=== PATIENT | male | born 1965 | race Caucasian/White ===

== ENCOUNTER 2023-11-17 09:40 | Day surgery (SDC) | payer OTHER, SELFPAY ==
--- NOTE | 2023-11-17 13:57 | ITS.CL.IMPLP ---
[employer] - Implant Loop
Implant Loop
Procedure Report:
Date of Procedure: November 15, 2023.
Procedure: Insertable Loop Recorder Implant.
Indication: Embolic stroke of unknown source.
Performing physician: Marquis Palumbo MD, [facility].
Implant: [employer]tronic; Reveal LINQII; Model# [id number]; Serial# [id number].
Technique: The patient was prepped and draped in the usual fashion. A time-out was performed. No intravenous sedation was administered. Local anesthetic was applied to the left pre-pectoral subcutaneous tissue. Using the insertion kit an incision
was made left of the midline in the fourth intercostal space and the device was implanted subcutaneously and directed towards the nipple. Hemostasis was excellent. The skin was closed with steri-strips. The estimated blood loss was less than 1 ml.
There were no complications. No fluoroscopy. R waves measured 0.22 mV and P waves were visible.
Final Programming: Detections: Afib, tachy at 160 bpm, james at 30 bpm, pause at 3 sec.
Conclusion: Uncomplicated insertable loop implant.
Recommendation: Routine post-insertable loop care. The device is MRI conditional without a waiting period and up to 3 Maci.
cc: Leonides Luna MD and Toan Mayer MD.
== END 2023-11-17 12:10 | disposition home or self-care (01) ==
LOC: CATH 09:40
PROVIDERS: ATTENDING PHYSICIAN Internal Medicine Cardiovascular Disease; FAMILY PHYSICIAN Family Medicine; OTHER PHYSICIAN Internal Medicine Cardiovascular Disease
DX: Z09 Encounter for follow-up examination after completed treatment for conditions other than malignant neoplasm (principal); Z86.73 Personal history of transient ischemic attack (TIA), and cerebral infarction without residual deficits; E11.9 Type 2 diabetes mellitus without complications; E78.5 Hyperlipidemia, unspecified; Z79.4 Long term (current) use of insulin; Z79.84 Long term (current) use of oral hypoglycemic drugs; Z79.82 Long term (current) use of aspirin; Z79.02 Long term (current) use of antithrombotics/antiplatelets
CPT/HCPCS: 33285; C1764

== ENCOUNTER → 2024-01-16 11:24 | Outpatient (REF) | payer OTHER, SELFPAY | LOC: DHCBC HW 11:24 | PROVIDERS: ATTENDING PHYSICIAN Internal Medicine Cardiovascular Disease; FAMILY PHYSICIAN Family Medicine | DX: Z86.73 Personal history of transient ischemic attack (TIA), and cerebral infarction without residual deficits (principal); I25.10 Atherosclerotic heart disease of native coronary artery without angina pectoris; I25.5 Ischemic cardiomyopathy | CPT/HCPCS: 93306 ==

== ENCOUNTER → 2024-02-15 10:43 | Outpatient (REF) | payer OTHER, SELFPAY | LOC: RAD 10:43 | PROVIDERS: ATTENDING PHYSICIAN Nurse Practitioner Family | DX: R05.9 Cough, unspecified (principal) | CPT/HCPCS: 71046 ==

== ENCOUNTER 2025-09-19 08:49 | Inpatient (IN) | payer BC, SELFPAY ==
[2025-09-19] VITALS (14 sets, daily range): BP systolic 90–154; BP diastolic 66–137; BMI 28.5
[2025-09-19 04:27] LABS: Hematocrit 40.8 % (39.0-52.0); Hemoglobin 14.0 g/dL (13.0-18.0); Mean Corp Hgb Conc. 34.3 g/dL (33.0-37.0); Mean Corpuscular Volume 89.9 fL (80.0-94.0); Nucleated Red Blood Cells % 0 % (-); Platelet Count 310 10^3/uL (130-400); Red Cell Dist. Width 13.3 % (11.5-14.5)
--- NOTE | 2025-09-19 05:04 | ED.GENMED ---
History of Present Illness
General
Chief Complaint: Breathing Problem
Source: patient and spouse
Exam Limitations: none
Time Seen by Provider: 09/19/25 04:02
Nursing documentation reviewed up to this point in time: agreed with
History of Present Illness
History of Present Illness:
Patient with history of OR with subsequent reduced ejection fraction, presents to ED secondary to coughing with shortness of breath when he lay down to this evening. Patient reports having had Thanksgiving dinner for dinner, but reports having
uncomfortable feeling in his stomach afterwards. Denies chest pain. Denies fever or chills. Denies recent sick contact. However, patient does report having travel overseas, requiring 15 hours of flight. Patient has intermittent leg swelling
since then. Denies weight gain. Denies back pain. Denies recent change in medications or diet. Denies previous history of similar symptoms. Patient feels as though he has fluid in his lungs.
Past History
Past History
ED Past Medical History: NIDDM
ED Past Surgical History: Negative Cardiac
Social History
Tobacco: Non-smoker
Alcohol: None
Drug: None
Personal:
Living: with family
Employment: Employed
Family History
Family History: Hypertension and CAD
Review of Systems
Review of Systems
Allergies reviewed?: Yes
All Other Systems: ROS reviewed and negative except as documented in HPI and ROS
Constitutional: Reports no symptoms; Denies fever
Respiratory: Reports cough and trouble breathing
Cardiac: Reports no symptoms
ABD/GI: Reports no symptoms
Musculoskeletal: Reports no symptoms
Skin: Reports no symptoms
Neurological: Reports no symptoms
Phy Exam
Physical Exam
Physical Exam:
Physical Exam
General: mild distress, not acutely ill. afebrile. hypoxic
Head: nc/at. eomi
Neck: supple. no jvd
Heart: s1/s2 regular rate and rhythm
Lungs: mild respiratory distress. crackles noted over right lower base
Abdomen: normal bowel sounds. not tender.
Neuro: alert and oriented x 3. no focal neurological deficits
Skin: no rash
Psychiatric: well kept. interactive and cooperative
Extremities: no edema. no calf tenderness.
Scores
Heart Failure Risk
Heart Failure Risk Score: Yes
History of Stroke or TIA: No
History of intubation for respiratory distress: No
Heart rate on ED arrival >/= 110: No
SaO2 <90% on arrival on room air: Yes
HR >/=110 during 3min walk test (or too ill to perform test): No
ECG has acute ischemic changes: No
Urea >/=12mmol/L (BUN 33.6mg/dL): No
Serum CO2>/=35mmol/L: No
Troponin I or T elevated to OR Level (0.4mg/dL): No
NT-proBNP >/=5,000ng/L (5,000pg/ml): Yes
HF Risk Score: 2
Admission Status: MEDIUM RISK 9.2% Consider observation or discharge to home with homecare & f/u visit to PCP/Double Surface Operator, or SNF for treatment
Course
Orders/Labs/Results
Orders:
Orders
09/19/25 04:03
CR Chest - 2 Views Urgent
Comment:
Reason For Exam: cough/sob
09/19/25 04:08
Cardiovascular Evaluation Urgent
Comment: ADD ON
Complete Blood Count/With Diff Urgent
Comprehensive Metabolic Panel Urgent
Glycohemoglobin (HgbA1c) Urgent
Magnesium Urgent
NT-proBNP Urgent
TSH Reflex To Free T4 Urgent
Comment: ADD ON
09/19/25 04:34
Electrocardiogram (*1) Urgent
Reason for Study: Shortness of Breath
EKG- Treatment ONCE
09/19/25 04:38
D-Dimer Urgent
Troponin I Urgent
09/19/25 05:43
CT Chest PE Study Urgent
Comment:
Reason For Exam: sob with elevated d-dimer
09/19/25 06:26
COVID-19 Antigen Urgent
Source: Nasal Swab
09/19/25 06:35
Guaifenesin/Codeine Solution [Robitussin AC] 10 ml PO NOW STA
09/19/25 06:36
Albuterol Nebs [Ventolin Nebules] 2.5 mg INH R NOW STA
09/19/25 07:02
Electrocardiogram (*1) Urgent
Reason for Study: Shortness of Breath
EKG- Treatment ONCE
09/19/25 07:07
Azithromycin 500 mg/250 ml [Zithromax Infusion] 500 mg in 250 ml IV NOW
CefTRIAXone [Rocephin] 1,000 mg IV NOW STA
09/19/25 07:26
Heparin Protocol- PTT Orders As Directed
PTT per Heparin protocol: -Obtain CBC and baseline PTT - if not already collected.
-Obtain PTT 6 hours from start of infusion. Then, every 6 hours until 2 consecutive
PTT's are therapeutic. Then, PTT Daily.
-With each rate change, obtain PTT every 6 hours until 2 consecutive PTT's are
therapeutic. Then, PTT Daily.
Notify MD As Directed
Notify physician if: PTT is greater than or equal to 200.
US Legs, Bilateral [US Periph Venous LOWER Ext Sukhi] Urgent
Comment:
Reason For Exam: LE swelling, elevated ddimer
09/19/25 07:29
Respiratory Culture/Gram Stain Urgent
LUISA Source: Sputum
Specimen Description:
09/19/25 07:30
Heparin 05992 Units/250 ml 25,000 units in 250 ml IV PER PROTOCOL
Weight to be used for heparin protocol in kilograms (kg):: 85.1
Protocol:: Cardiac Tx/Acute Coronary
PTT Goal Range to be used:: PTT 73 to 111 seconds
Order type:: Initial
INITIAL Infusion Dose (UNITS/KG/hr) & then follow protocol:: 15 units/kg/hr
Infusion Dose in UNITS/hr & then follow protocol (UNITS/hr):: 1,300
INFUSION RATE in mL/hr & then follow protocol (mL/hr):: 13
PTT less than or equal to 64 seconds:: Increase rate by 200 units/hr (+ 2 mL/hr)
PTT 64.1 to 72.9 seconds:: Increase rate by 100 units/hr (+ 1 mL/hr)
PTT 73 to 111 seconds:: Target Range. No change in rate.
PTT 111.1 to 130.9 seconds:: Decrease rate by 100 units/hr (- 1 mL/hr)
PTT 131 to 199.9 seconds:: HOLD for 1 hr. Then decrease rate by 200 units/hr (- 2 mL/hr)
PTT greater than or equal to 200 seconds:: HOLD for 2 hrs & Notify Provider. Then decrease by 200 units/hr (-
2 mL/hr)
Lab follow-up:: Each change, PTT q6h until 2 consecutive are therapeutic. Then PTT
daily.
09/19/25 07:32
Aspirin 325 mg PO NOW STA
09/19/25 07:33
Echo 2D MMode Color/Doppler Routine
Reason for Study: dyspnea
09/19/25 07:51
CARDIOLOGY CONSULT Routine
Consulting Provider: Kashif Soliz
Was physician already notified: Yes
Reason for consult: elevated troponin
09/19/25 07:55
Admit/Transfer Patient As Directed
Co-Sign Provider:
Level of Care: Inpatient admission
Assign to:: IVU
Physician / Group: Tara
Diagnosis: NSTEMI, CAP
Reason for Hospitalization: NSTEMI, CAP
Expected length of stay greater than two midnights?: Yes
ELOS- Estimated Length of Stay in days: 4
I certify the patient meets the requirements for IP care: Yes
Complete Blood Count/No Diff Urgent
Comment: Obtain baseline before beginning heparin infusion if not already collected
Lactic Acid Q4H
Comment: CANCEL 2nd LACTIC ACID IF 1st LACTIC ACID IS LESS THAN 2
PTT Urgent
Comment: Obtain baseline before beginning heparin infusion if not already collected
Blood Culture Q30M
LUISA Source: Blood/Venous
Specimen Description:
Influenza A+B Rapid Molecular Urgent
LUISA Source: Nasal Swab
Specimen Description:
09/19/25 07:56
PRN Pain Medication Management As Directed
May give lesser potent ordered pain med per pt: Yes
preference::
Protocol:: Medication orders for pain may be administered in a
manner that supports deferring to patient preference
when the pt is:
- Requesting an ordered lesser potent pain medication.
Least to most potent pain medications are defined
as: acetaminophen < NSAID < tramadol < opioids
(morphine, oxycodone, hydromorphone).
- Requesting a lesser dose of the same medication IF
ORDERED.
- Requesting a less intrusive route of administration
if both routes are prescribed by the provider (PO <
IV).
09/19/25 07:57
Code Status As Directed
Resuscitation Status: Full Code
09/19/25 07:59
Blood Culture Q30M
LUISA Source: Blood/Venous
Specimen Description:
09/19/25 08:00
DH LUMASON 5mL Routine
Flush (0.9% Sodium Chloride) [Flush (Nss)] See Dose Instructions IV PER PROTOCOL
09/19/25 08:18
Add On - Microbiology Urgent
Tests Added?: resp culture gram stain
09/19/25 08:25
Add On- LAB Routine
Tests Added?: Hgba1c
Troponin I Urgent
09/19/25 09:18
Acetaminophen [Tylenol] 650 mg PO Q4HPRN PRN
Bisacodyl [Dulcolax] 10 mg RECTAL P40YSRE PRN
Carvedilol [Coreg] 25 mg PO DAILY
Dextrose 50%-Water [Dextrose 50% Syringe] 12.5 grams IV [id number] PRN
Docusate W/Senna [Senokot-S] 1 tablet PO BIDPRN PRN
Doxycycline [Vibramycin] 100 mg PO Q12
Glucagon [GlucaGen] 1 mg IM PRN PRN
Ipratropium/Albuterol Sulfate [Duoneb] 3 ml INH R Q4HPRN PRN
Mag Hydrox/Al Hydrox/Simeth [Maalox] 30 ml PO Q6HPRN PRN
Ondansetron Injectable [Zofran] 4 mg IV Q8HPRN PRN
Polyethylene Glycol Powder [Miralax] 17 grams PO DAILYPRN PRN
09/19/25 09:18
Add On- LAB Routine
Tests Added?: HgbA1C to today's lab
Add On- LAB Urgent
Tests Added?: TSH with reflex FT4, Lipid panel
Activity As Directed
Activity Level: Out of Bed-Early Mobility
Bedside Glucose Monitoring As Directed
Frequency: AC&HS
Additional Instructions:: Change to q6h if pt on TPN, tube feeding or not eating
Precautions As Directed
Type of Precautions: Seizure
Vital Signs As Directed
Frequency: Per unit guidelines
O2 Therapy [RESP] Routine
Titrate/Wean O2 to maintain O2 sat greater than (%): 90
09/19/25 09:22
Carvedilol [Coreg] 12.5 mg PO DAILY
09/19/25 Lunch
2000 calorie (17 carb) Diabetic
At Your Request: Full Participation
09/19/25 10:24
Troponin I Q6H
Levetiracetam [Keppra] 1,000 mg PO BID
09/19/25 11:30
Insulin Aspart Corrective Mod [Novolog Flexpen-Moderate Resistance] See Protocol SC AC
09/19/25 14:30
PTT Urgent
Comment: 6 hour heparin
09/19/25 22:00
Atorvastatin [Lipitor] 80 mg PO HS
09/20/25 06:00
Complete Blood Count/With Diff IN AM
Comprehensive Metabolic Panel IN AM
09/20/25 08:00
Aspirin Low Dose EC [Aspir Low (Enteric Coated)] 81 mg PO DAILY
CefTRIAXone [Rocephin] 1,000 mg IV Q24H
09/21/25 06:00
Complete Blood Count/No Diff Q2D
Comment: Notify MD if platelet count is <130,000 or decreases by 50% from baseline
09/23/25 06:00
Complete Blood Count/No Diff Q2D
Comment: Notify MD if platelet count is <130,000 or decreases by 50% from baseline
09/25/25 06:00
Complete Blood Count/No Diff Q2D
Comment: Notify MD if platelet count is <130,000 or decreases by 50% from baseline
09/27/25 06:00
Complete Blood Count/No Diff Q2D
Comment: Notify MD if platelet count is <130,000 or decreases by 50% from baseline
09/29/25 06:00
Complete Blood Count/No Diff Q2D
Comment: Notify MD if platelet count is <130,000 or decreases by 50% from baseline
10/01/25 06:00
Complete Blood Count/No Diff Q2D
Comment: Notify MD if platelet count is <130,000 or decreases by 50% from baseline
10/03/25 06:00
Complete Blood Count/No Diff Q2D
Comment: Notify MD if platelet count is <130,000 or decreases by 50% from baseline
10/05/25 06:00
Complete Blood Count/No Diff Q2D
Comment: Notify MD if platelet count is <130,000 or decreases by 50% from baseline
Abnormal Lab Results
09/19/25 09/19/25 09/19/25
04:08 04:38 07:55
WBC 18.6 H 10^3/uL 18.1 H 10^3/uL
(4.8-10.8) (4.8-10.8)
RBC 4.54 L 10^6/uL 4.01 L 10^6/uL
(4.70-6.10) (4.70-6.10)
Hgb 12.8 L g/dL
(13.0-18.0)
Hct 35.5 L %
(39.0-52.0)
MCH 31.9 H pg
(27.0-31.0)
Abs Immat Gran (auto) 0.1 H 10^3/uL
(0-0.05)
Absolute Neuts (auto) 16.0 H 10^3/uL
(1.4-6.5)
Absolute Monos (auto) 0.7 H 10^3/uL
(0.1-0.6)
Immature Gran % 0.8 H %
(0-0.5)
Neutrophils % 86.2 H %
(42.2-75.2)
Lymphocytes % 8.7 L %
(20.5-51.1)
APTT 21.7 L Sec
(23.4-35.0)
D-Dimer 0.98 H ug/mlFEU
(0.00-0.50)
BUN 22 H mg/dl
(9-20)
Glucose 416 H mg/dl
(70-99)
Hemoglobin A1c 11.5 H %
(4.0-5.9)
Calcium 10.7 H mg/dl
(8.4-10.2)
Troponin I 2.210 H* ng/ml
09/19/25 07:55
09/19/25 04:08
Vital Signs
Initial and Last Documented VS:
Initial Vital Signs
Temp Pulse Resp BP Pulse Ox
97.8 F 105 20 108/66 88
09/19/25 03:43 09/19/25 03:43 09/19/25 03:43 09/19/25 03:43 09/19/25 03:43
Last Documented Vital Signs
Temp Pulse Resp BP Pulse Ox
98 F 85 17 106/75 93
09/19/25 09:26 09/19/25 13:30 09/19/25 09:26 09/19/25 13:28 09/19/25 12:37
MDM/Problems Addressed
MDM/Problems Addressed:
In light of patient's respiratory symptoms, along with elevated D-dimer and troponin, decision made to obtain CT angiogram to evaluate for potential PE, especially with patient's recent travel abroad with intermittent leg swelling.
CTA report reviewed and discussed with patient. Patient will be admitted for further evaluation treatment, including IV antibiotics. However, in light of patient's cardiac history, troponin will need to be trended, along with cardiology
consultation.
[facility], , notified via [employer].
*Pulse Oximetry
SaO2: 91
Nasal Cannula flow liters per minute: 3
Oxygen Mode of Delivery: Room air
Patient hypoxic: yes
*EKG
Interpreted by ED Provider?: Yes
EKG Intrepretation Date: 09/19/25
Heart Rate: 104
Rate: tachycardiac
Rhythm: sinus
[place]: normal axis
Interval: normal interval
*Critical Care Note
Total Time (30-74mins, 75-104mins- exclusive of procedures): 40 min
ED Attending Note
-
Portions of this chart may have been created with voice recognition software.� Occasional wrong word or��sound alike� substitutions may have occurred due to the inherent limitations of voice recognition software.
Discharge Plan
Departure
Patient Disposition: Admit
Date of Disposition: 09/19/25
Time of Disposition: 07:08
Admit to: Telemetry
Presentation/result/management discussed w/ accepting MD/DO: Hospitalist
Discharge Problem:
Hypoxia, Pneumonia, Abnormal cardiac enzyme level
Interventions
Interventions:
*Risk Screen - Suicide Last Done: 09/19/25 03:50
*General Assessment Last Done: 09/19/25 03:50
*Neglect/Abuse Screening Last Done: 09/19/25 03:50
*ED- Fall Risk Assessment Last Done: 09/19/25 03:50
*ED COVID-19 Vaccine History Last Done: 09/19/25 03:50
*ED Influenza Vaccine History Last Done: 09/19/25 03:50
*Nursing Disposition Last Done: 09/19/25 09:15
ED- Cardiac Assessment Last Done: 09/19/25 05:14
ED- Pulmonary Assessment Last Done: 09/19/25 05:14
Discharge Date and Time
Discharge Date/Time: 09/19/25 09:15
[2025-09-19 05:06] LABS: ALT (SGPT) 36 U/L (0-50); AST (SGOT) 39 U/L (17-59); Albumin 4.4 g/dl (3.5-5.0); Alkaline Phosphatase 122 U/L (38-126); Blood Urea Nitrogen 22 mg/dl (9-20); Calcium 10.7 mg/dl (8.4-10.2); Carbon Dioxide 29 mmol/L (22-30); Chloride 100 mmol/L (98-107); Glucose 416 mg/dl (70-99); Magnesium 1.7 mg/dl (1.6-2.3); Potassium 5.0 mmol/L (3.5-5.1); Sodium 135 mmol/L (135-145); Total Protein 7.1 g/dl (6.3-8.2); eGFR > 60.00
[2025-09-19 05:33] LABS: D-Dimer 0.98 ug/mlFEU (0.00-0.50)
[2025-09-19 05:43] LABS: Troponin I 2.210 ng/ml
[2025-09-19] MEDS: VENTOLIN NEBULES 2.5 MG INH (06:39)
[2025-09-19] MEDS: ROBITUSSIN AC 10 ML PO (06:39)
[2025-09-19 06:50] LABS: COVID-19 Antigen Negative (Negative)
[2025-09-19] MEDS: ASPIRIN 325 MG PO (08:00)
[2025-09-19] MEDS: ROCEPHIN 1000 MG IV (08:01)
[2025-09-19] MEDS: ZITHROMAX INFUSION 250 IV (08:01)
--- NOTE | 2025-09-19 08:01 | HPS.HSE ---
Family Physician
-
Family Physician: ROSALEE Orr
Chief Complaint
-
cough and epigastric pain
History of Present Illness
60yo M with PMHx of CAD s/p PCI i@2008, LINQ implant with concern for Afib, HLD, HTN, DM, seizure d/o, bronchiectatic disease, Hx of CVA came with sudden onset of epigastric dyscomfort during his Thanksgiving meal, persisted overnight and associated
with cough, mostly when in lateral position with sputum. Patient used albuterol at home that helped him with cough. No fevers noted. Has HX of recent travel to [place] 2 weeks ago. In ED found to have significantly elevated troponin. EKG with
some ST depressions and DDimer elevation. CTA chest with concern for b/l pulmonary infectious process. Noted to at 85% overnight on RA. No abd pain in ED noted
Medical History
Past Medical History
Past Medical History: Reports Other
Additional Past Medical History:
see above
Past Surgical History: Reports Other
Additional Past Surgical History:
see above
Social History
Tobacco: Non-smoker
Alcohol: Occasional
Drug: None
Family History
Family History: Not pertinent
Allergies / Home Medications
Allergies reflects when Allergies were last updated in [employer].
Home Medications with original date entered in [employer]
Allergy/Medication List:
Allergies
Allergy/AdvReac Type Severity Reaction Status Date / Time
No Known Allergies Allergy Verified 10/31/23 09:47
Home Medications
coenzyme Q10 100 mg capsule (CoQ-10) 100 mg PO DAILY Supplement 06/15/23
calcium carbonate 500 mg PO DAILY Supplement 10/31/23
cholecalciferol (vitamin D3) 25 mcg (1,000 unit) tablet (Vitamin D3) 25 mcg PO DAILY Supplement 10/31/23
cyanocobalamin (vitamin B-12) 1,000 mcg tablet 1,000 mcg PO DAILY Supplement 10/31/23
empagliflozin 10 mg tablet (Jardiance) 10 mg PO DAILY Diabetes 10/31/23
insulin glargine 100 unit/mL subcutaneous solution (Lantus U-100 Insulin) 24 unit SC DAILY Diabetes 10/31/23
metformin 1,000 mg tablet 1,000 mg PO BID@0800,1700 Diabetes 10/31/23
therapeutic multivitamin 1 tab PO DAILY Supplement 10/31/23
atorvastatin 80 mg tablet (Lipitor) 80 mg PO HS 11/01/23
levetiracetam 1,000 mg tablet (Keppra) 1,000 mg PO BID Seizure #60 tabs 11/01/23
aspirin 81 mg tablet 81 mg PO DAILY 11/17/23
carvedilol 25 mg tablet 12.5 mg PO DAILY 11/17/23
carvedilol 25 mg tablet 25 mg PO DAILY 11/17/23
Review of Systems
-
History Source: Patient
A 12 point ROS was completed and negative except as noted: Yes
Respiratory: Reports See HPI
Abdomen/GI: Reports See HPI
Physical Exam
Vital Signs
Vital Signs
Temp Pulse Resp BP Pulse Ox
97.8 F 107 28 111/72 91
09/19/25 03:43 09/19/25 06:25 09/19/25 06:25 09/19/25 06:00 09/19/25 06:30
Physical Exam
General: No Apparent Distress, Comfortable and Conversant
HEENT: NormoCephalic, Anicteric and Moist mucous membranes
Respiratory: Crackles (b/l); No Wheezes or Rales
Cardiac: S1/S2 and Regular Rhythm; No Murmur
GI: Soft, Non Tender, Non Distended and Normal Bowel Sounds
Genito-urinary: No costovertebral tender
Musculoskeletal: No Clubbing, No Cyanosis and No Edema
Skin: Warm; No Rash or Jaundice
Neuro: Awake, Alert, Oriented and AO x 3
Psych: Calm
Laboratory Results
-
09/19/25 04:08
Laboratory Results
Total Bilirubin 0.8 mg/dl (0.2-1.3) 09/19/25 04:08
AST 39 U/L (17-59) 09/19/25 04:08
ALT 36 U/L (0-50) 09/19/25 04:08
Alkaline Phosphatase 122 U/L (38-126) 09/19/25 04:08
Troponin I 2.210 ng/ml H* 09/19/25 04:38
Data Reviewed
-
CT Scan: Report Reviewed by me
Lab Data: Labs Reviewed by me
Impression/Plan
-
A/P:
#NSTEMI
ASA, statin, BB
Heparin drip
Serial troponin and EKG
Cardio consult
Check TSH, lipids
Echo
telemetry
#Acute repiratory insufficiency with suspected b/l pneumonia
#Bronchoectatic disease
Ceftriaxone/Doxy
COVID-19 neg
Check Influenza PCR
Legionella and S.pneumonia urinary Ag
Sputum Cx
Wean off O2
Bronchodilators
#Elevated ddimer
with Hx of recent travel - check LE for DVT with US
CTA chest neg for pulmonary embolism
#DM type with unspecified complications and hyperglycemia
Adjust insulin
Hold oral hypoglycemics
Cont insulin basal, Add accuchecks, Insulin SS and DM diet
Check HgbA1c
#Essential HTN
#HLD
#Hx of CVA
#Seizure d/o
seizure precautions
cont home meds
DVT ppx heparin drip
Full code
I have spent at least 79min reviewing chart, test results, communication with consuoltants and providing direct patient care
[2025-09-19 08:04] LABS: Hematocrit 35.5 % (39.0-52.0); Hemoglobin 12.8 g/dL (13.0-18.0); Mean Corp Hgb Conc. 36.1 g/dL (33.0-37.0); Mean Corpuscular Volume 88.5 fL (80.0-94.0); Platelet Count 257 10^3/uL (130-400); Red Cell Dist. Width 13.4 % (11.5-14.5)
--- NOTE | 2025-09-19 08:09 | CON.CAR ---
Addendum entered and electronically signed by Kashif Soliz MD 09/19/25 09:47:
No indication for emergent cardiac catheterization but we will continue to monitor.
Addendum entered and electronically signed by Kashif Soliz MD 09/19/25 09:46:
I reviewed and agree with the note by ROSALEE and it accurately reflects our care.
I saw and evaluated the patient, and I provided the substantive portion of the medical decision making. My assessment and plan is below:
60-year-old man with coronary artery disease (NSTEMI 2009), ischemic cardiomyopathy (EF 40%), diabetes, CVA s/p ILR, and dyslipidemia who presented with indigestion. Started day before yesterday but then yesterday developed orthopnea so came to the
ER. He says he feels like he has fluid in his lungs. He has a cough that is productive of clear phlegm. His indigestion is completely gone. His cough and shortness of breath have improved after albuterol and codeine/Robitussin. Of note he
traveled to [place] 1.5 weeks ago. He denies any fevers or chills.
Physical exam: RRR, no murmurs, crackles at bilateral lung bases, no lower extremity edema
Labs notable for WBC 18, creatinine 1.0, glucose 416, troponin 2.2, NT proBNP 583 (no prior), lactate 1.5, elevated D-dimer
Chest CT: No PE, widespread GGO's, small bilateral pleural effusions, consistent with pneumonia/pneumonitis per radiology
Leg US negative for DVT
ECG: Sinus tachycardia, LAE, lateral ST depressions, poor R wave progression
TTE December 2023: LVEF 44%, septal/apical hypokinesis, stage I DD
Type II IA: Likely due to demand in the setting of pneumonia and CHF exacerbation. Fortunately he is chest pain/indigestion free at this time. Continue to trend troponin to peak. Follow-up echocardiogram. Continue aspirin, heparin, and
beta-kristie.
Acute hypoxic respiratory failure: Likely multifactorial in the setting of acute on chronic CHF exacerbation and pneumonia. Monitor response to IV Lasix. Continue antibiotics per primary team.
Ischemic cardiomyopathy: Add back GDMT as tolerated.
Original Note:
Consultation
Consultation Request
Date/Time Consultation Requested: 09/19/2025 07:50
Date/Time Consultation Performed: 09/19/2025 08:00
Requesting Provider: Dr. Hubbard
Performing Provider: ROSALEE Dimas for Dr. Soliz
Reason for Consultation: Abnormal troponin
Medical History
-
Chief Complaint: Abdominal pain, shortness of breath
History of Present Illness:
Saad Yi is a 60-year-old male (formerly known to Dr. Luna), with CAD (NSTEMI, 2009), ischemic cardiomyopathy (LVEF 40%), type 2 diabetes mellitus, dyslipidemia, and CVA (s/p ILR) who presented to the emergency department with a chief
complaint of indigestion. He believes he may have had indigestion Monday evening, nothing significant. Yesterday he woke up feeling his usual state of health and last evening he developed sudden onset of epigastric pain. This persisted
overnight. He then developed a cough that got worse when he laid flat. When he presented to the emergency department he was found to be hypoxic. Notable labs include a D-dimer of 0.98, troponin 2.210, glucose 416, and WBCs of 18.6. Chest CT did
not have any evidence of PE but he did have widespread bilateral ground glass opacities and small bilateral pleural effusions concerning for infectious process. Cardiology was consulted for abnormal troponin evaluation. At the time of this
consultation he endorsed shortness of breath, moist nonproductive cough, but did not have any chest pain.
The patient did have recent travel to [facility] approximately 2 weeks ago.
Past Medical History
Past Medical History: CAD (NSTEMI with PCI 2009), CHF (Ischemic cardiomyopathy), CVA, HTN, Hypercholesterolemia, IDDM and Seizures
Social History
Tobacco: Non-Smoker
Alcohol: Occasional
Drug: None
Family History
Family History: Reviewed & Not Pertinent
Allergies / Home Medications
Allergy/AdvReac Type Severity Reaction Status Date / Time
No Known Allergies Allergy Verified 10/31/23 09:47
�Medication �Instructions �Recorded �Confirmed �Type
coenzyme Q10 100 mg capsule 100 mg PO DAILY Supplement 06/15/23 09/19/25 History
(CoQ-10)
calcium carbonate 500 mg PO DAILY Supplement 10/31/23 09/19/25 History
cholecalciferol (vitamin D3) 25 25 mcg PO DAILY Supplement 10/31/23 09/19/25 History
mcg (1,000 unit) tablet (Vitamin
D3)
cyanocobalamin (vitamin B-12) 1,000 mcg PO DAILY Supplement 10/31/23 09/19/25 History
1,000 mcg tablet
empagliflozin 10 mg tablet 10 mg PO DAILY Diabetes 10/31/23 09/19/25 History
(Jardiance)
insulin glargine 100 unit/mL 24 unit SC DAILY Diabetes 10/31/23 09/19/25 History
subcutaneous solution (Lantus
U-100 Insulin)
metformin 1,000 mg tablet 1,000 mg PO BID@0800,1700 Diabetes 10/31/23 09/19/25 History
therapeutic multivitamin 1 tab PO DAILY Supplement 10/31/23 09/19/25 History
atorvastatin 80 mg tablet (Lipitor) 80 mg PO HS 11/01/23 09/19/25 History
levetiracetam 1,000 mg tablet 1,000 mg PO BID Seizure #60 tabs 11/01/23 09/19/25 Rx
(Keppra)
aspirin 81 mg tablet 81 mg PO DAILY 11/17/23 09/19/25 History
carvedilol 25 mg tablet 12.5 mg PO DAILY 11/17/23 09/19/25 History
carvedilol 25 mg tablet 25 mg PO DAILY 11/17/23 09/19/25 History
Physical Exam
Vital Signs
Temp Pulse Resp BP Pulse Ox
97.8 F 107 28 111/72 91
09/19/25 03:43 09/19/25 06:25 09/19/25 06:25 09/19/25 06:00 09/19/25 06:30
Lab Results
09/19/25 07:55
09/19/25 04:08
Troponin I 2.210 ng/ml H* 09/19/25 04:38
Ebc-J-Ipqzsvtkfzo Pept 583 pg/ml 09/19/25 04:08
Impression / Plan
-
I/P: 60M with CAD (NSTEMI, 2009), ischemic cardiomyopathy (LVEF 40%), type 2 diabetes mellitus, dyslipidemia, and CVA (s/p ILR) who presented to the emergency department with a chief complaint of indigestion
Primary Cold Saw Operator: formerly Dr. Luna
Acute hypoxic respiratory insufficiency in the setting of pneumonia
-SpO2 92% on 3L NC
-COVID-negative, influenza pending, Legionella pending
-May need to consider ID evaluation with recent travel to [facility]
Type II IA in the setting of critical illness
-Prior NSTEMI he reported epigastric low substernal CP with an abnormal troponin
-Troponin 2.210 [address] E[address] with lateral [address] abnormality, trend troponin
-ASA 324mg & heparin gtt
-Echocardiogram
Pneumonia
-With associated hypoxia
-Per primary
ICM (EF 40%),
-Bilateral pleural effusions on CT with associated orthopnea
-Furosemide 20mg IV x 1 now
-GDMT as tolerated
-Beta kristie: Carvedilol
-SGLT2i: Jardiance 10mg
-BENJI/ARB/ARNI: Can assess if BP will allow, has been hypotensive in the past
-MRA: Can consider if BP will allow
-Diuretic: He was not on a diuretic at home to maintain euvolemia
-ICD: Not indicated with LVEF 40%, re-assess
-Echo today
-Trend daily weight, I/O, & BMP with diuresis
CAD
-Continue beta-kristie, aspirin, and statin
-Fasting lipid panel tomorrow, Hgba1c pending
Type 2 diabetes mellitus with hyperglycemia, Glucose 416, HgbA1c pending, per primary service
Hypercholesterolemia, on atorvastatin, continue
CVA
ILR, no significant events, recently interrogated, followed in our device clinic
Data Reviewed
-
EKG: Report Reviewed by me
Radiology: Report Reviewed by me
CT Scan: Report Reviewed by me
Medical Tests (Nuc Med, Echo etc): Report Reviewed by me
Labs: Labs Reviewed by me
Old Records: Reviewed
[2025-09-19 08:16] LABS: APTT 21.7 Sec (23.4-35.0)
[2025-09-19] MEDS: HEPARIN 25000 UNITS/250 ML IV (08:27)
[2025-09-19] MEDS: LASIX 20 MG IV (09:54)
[2025-09-19] MEDS: VIBRAMYCIN 100 MG PO ×2 (09:55→22:01)
[2025-09-19] MEDS: COREG 25 MG PO (09:55)
[2025-09-19 09:56] LABS: HDL Cholesterol 45 mg/dl; LDL Cholesterol, Calculated 107 mg/dl; Very Low Density Lipoprotein 14 mg/dl (0-30)
[2025-09-19] MEDS: COREG 12.5 MG PO (09:56)
--- NOTE | 2025-09-19 10:12 | PTCARENOTE ---
Patient received from ED. AO x3. Coughing, oxygen 3 liters NC, right lower lung coarse crackles, POX 95%. NSR/ST 90-102, BP 106/68, Heparin gtt 1300 units/hr. Appetite fair. Voiding in the bathroom, using urinal for I & O. Lights dimmed, call george
in reach
[2025-09-19 10:39] LABS: Glycohemoglobin (HgbA1c) 11.5 % (4.0-5.9)
[2025-09-19 10:52] LABS: Glucose - Point of Care 399 mg/dl (70-99)
[2025-09-19] MEDS: KEPPRA 1000 MG PO ×2 (10:54→22:01)
[2025-09-19] MEDS: NOVOLOG FLEXPEN-MODERATE RESISTANCE 9 UNITS SC (10:54)
[2025-09-19] MEDS: LANTUS 0.24 UNITS SC (10:54)
[2025-09-19 11:04] LABS: Troponin I 13.800 ng/ml
--- NOTE | 2025-09-19 11:31 | PTCARENOTE ---
Addendum entered by Martin Du RN 09/19/25 12:32:
Troponin 13.800. Patient chest pain free. Orthopneic POX 95% on 3 liters MARIO Winters and Dr. Pacheco notified
Original Note:
Troponin 13.800. Patient chest pain free. Orthopneic POX 95% on 2liters MARIO Winters and Dr. Pacheco notified
--- NOTE | 2025-09-19 13:21 | CM ---
Reviewed chart. Met with Mr. Sutton to review discharge plans. He states prior to admission he resides with his spouse in a two story home with two steps to enter. He states his main suite is on the first floor. He states prior to admission he was
independent with ambulation and adls. He states he does not have any DME in the home. He states he has never needed [facility]. He states he has a prescription plan and uses [facility]. Will need to see his current functional level to see if
he will have any skilled care needs. Medical work-up in progress. The discharge plan is to return home with his sppouse when medically stable.
[2025-09-19 15:09] LABS: Glucose - Point of Care 371 mg/dl (70-99)
[2025-09-19] MEDS: NOVOLOG FLEXPEN-HIGH RESISTANCE 7 UNITS SC (16:22)
[2025-09-19 16:25] LABS: Glucose - Point of Care 289 mg/dl (70-99)
--- NOTE | 2025-09-19 16:34 | PTCARENOTE ---
Blood sugar 289, sliding scale coverage given
[2025-09-19 16:42] LABS: APTT 37.1 Sec (23.4-35.0)
[2025-09-19 16:59] LABS: Troponin I 22.600 ng/ml
--- NOTE | 2025-09-19 18:23 | PTCARENOTE ---
Patient received from the lab analyst. Right radial band intact and right brachial CDI, POX 95% 4 liters NC. NSR 80's, call george in reach
[2025-09-19 18:32] LABS: Glucose - Point of Care 249 mg/dl (70-99)
[2025-09-19] MEDS: LIPITOR 80 MG PO (22:02)
--- NOTE | 2025-09-19 22:45 | ITS.CL.CATH ---
[facility] - Catheterization
Cardiac Catheterization
Procedure Report:
LEFT AND RIGHT HEART CATHETERIZATION
Date of Procedure: September 19, 2025
Referring: Kashif Soliz MD
PROCEDURES:
1. Left heart catheterization, coronary angiogram.
2. Moderate sedation.
3. Right Heart catheterization.
INDICATION: New CM with NSTEMI
ACCESS: Right radial artery and brachial vein, 6Fr. sheaths, under US guidance.
HEMODYNAMICS : (mmHg)
RA (m) : 13
RV (s/d,m) : 35/9, 15
PA (s/d, m) : 36/22, 27
PCWP (m) : 25
PA saturation: 59.1% on room air
AO saturation: 93.2% on room air
RA saturation: 58.4% on room air
Cardiac Output : 4.47 L/min by Ca calculation
Cardiac Index :2.25 L/min/m-2 by Ca calculation
Systemic vascular resistance: 1110 dsc^(-5)
Pulmonary vascular resistance: 1.34 perez unit
AO (s/d) : 93/63
LVEDP : 25
No significant gradient across the aortic valve to suggest aortic stenosis.
CORONARY FINDINGS
Dominance: Right
Left Main Trunk (LMT): Large caliber vessel that gives rise to the LAD and LCx branches. The terminal left main has 60% stenosis involving the ostial LAD and LCx (Pleitez 1,1,1).
Left Anterior Descending Artery (LAD): Large caliber vessel that gives off several small caliber diagonal branches as it courses along the anterior inter-ventricular groove before wrapping around the cardiac apex. The LAD has diffuse disease. The
ostial LAD has 50% stenosis, thereafter the mid-vessel is stented jailing several small diagonals which has ostial 90% stenosis. The stented segment has severe in-stent restenosis up to 95%. There is then a 95% stenosis in mid-vessel distal to the
stent involving the ostium of another small caliber diagonal which has ostial 90% stenosis. The mid to distal LAD thereafter has diffuse 50-60% stenosis to the apical LAD.
Left Circumflex Artery (LCx): Large caliber vessel that gives off a large first major obtuse marginal (OM) and a small caliber OM2 as it courses along the atrio-ventricular (AV) groove. The ostial LCx has ostial 80% stenosis. The ostial OM1 has
80% stenosis. The OM2 is severely diffusely diseased.
Right Coronary Artery (RCA): Large caliber dominant vessel that gives rise to the posterior descending artery (RPDA) and postero-lateral ventricular (RPLV) branches distally. The RCA is diffusely diseased and calcified with mid-vessel 80%
stenosis, distal 70% stenosis involving the bifurcation of the RPDA with ostial 70% stenosis.
SEDATION:47 minutes of procedural sedation was utilized. IV Midazolam and IV Fentanyl were administered. An independent biomedical field service engineer was present to assist with and help manage the patient's level of consciousness and physiologic status.
RADIATION SUMMARY: Fluoro Time (min): 2.2, Dose (mGy): 27.7, DAP (Gy.cm2) : 360
Closure Device: There were no immediate intra-procedural complications. The sheath was pulled in the maintenance shop laborer and a vascular-band applied to the right wrist for radial artery hemostasis using the patent hemostasis technique.
CONCLUSIONS
1. Severe triple vessel CAD involving the RCA, left main, LAD, LCx
2. Severe in-stent restenosis of the mid-LAD stent.
3. Elevated right and left sided filling pressures, normal cardiac output.
RECOMMENDATIONS
1. Wean radial band per protocol. Monitor right hand perfusion and for bleeding from the radial site following removal of the vascular-band following trans-radial access.
2. Continue aggressive medical therapy and risk factor modification for secondary CAD prevention.
3. Hydrate with normal saline to mitigate the risk of contrast-induced acute kidney injury.
4. Evaluation of CABG with consideration of grafts to LAD, OM1, RPDA although the LAD has diffuse disease which may make him a poor surgical candidate.� He is overall a poor PCI candidate due to high SYNTAX score (> 32), severe in-stent restenosis
within the LAD and the need for extensive stenting including the left main bifurcation and the LAD cannot be completely revascularized given the diffuse nature of the disease extending to the apex, and the vessel appears to be less 2 mm in the mid
to distal diseased segment.
Johanna Luis MD, [facility], [facility]
copy: Kashif Soliz MD
--- NOTE | 2025-09-19 23:11 | PTCARENOTE ---
Pt rec'd at shift change sleepy but easily arousable to verbal stimuli. O2 at 3lit n/c in place decreased to 2 lit with sat's 98%. Right radial site with R band in place. removed at 2205. Site remains dry without hematoma noted. Right brachial site
remains dry and intact. Heparin ordered per Dr Luis to start 6 hrs after R band removed (0400).
[2025-09-19 23:30] LABS: Glucose - Point of Care 243 mg/dl (70-99)
--- NOTE | 2025-09-19 23:30 | PTCARENOTE ---
Accu check machine not crossing results to [facility]. result at HS 243
[2025-09-20] VITALS (9 sets, daily range): BP systolic 84–111; BP diastolic 51–69; BMI 28.3
[2025-09-20] MEDS: HEPARIN 25000 UNITS/250 ML IV ×2 (04:01→18:40)
--- NOTE | 2025-09-20 04:27 | PTCARENOTE ---
Heparin drip started at 0400, 6 hrs post R band removal at 1500 units/hr via LFA. VS taken RR 24 with sat's noted to be 85 on 2 lit , up to 88 % on 3 lit then increased to 4 lit n/c with sat 90-91%. pt denies feeling sob,no change in lung sounds.
cough remains non productive. Pt aware of need to get a rsp specimen should his cough become productive
[2025-09-20 04:53] LABS: Hematocrit 31.2 % (39.0-52.0); Hemoglobin 11.1 g/dL (13.0-18.0); Mean Corp Hgb Conc. 35.6 g/dL (33.0-37.0); Mean Corpuscular Volume 87.4 fL (80.0-94.0); Nucleated Red Blood Cells % 0 % (-); Platelet Count 200 10^3/uL (130-400); Red Cell Dist. Width 13.5 % (11.5-14.5)
[2025-09-20 04:59] LABS: ALT (SGPT) 31 U/L (0-50); AST (SGOT) 90 U/L (17-59); Albumin 3.2 g/dl (3.5-5.0); Alkaline Phosphatase 86 U/L (38-126); Blood Urea Nitrogen 30 mg/dl (9-20); Calcium 9.0 mg/dl (8.4-10.2); Carbon Dioxide 28 mmol/L (22-30); Chloride 103 mmol/L (98-107); Estimated Creatinine Clearance 69 ml/min; Glucose 195 mg/dl (70-99); Potassium 4.3 mmol/L (3.5-5.1); Sodium 133 mmol/L (135-145); Total Protein 5.4 g/dl (6.3-8.2); eGFR > 60.00
[2025-09-20 05:11] LABS: Troponin I 17.900 ng/ml
--- NOTE | 2025-09-20 07:57 | W.PN.HOSP.TC ---
Today's Communication/Plan
-
cont Ceftriaxone/Doxy as patient afebrile and continue to follow cultures and WBC curve
cardiac mgmt as per cardiology
wean off O2
mucinex
Assessment / Plan
Assessment / Plan
60yo M with PMHx of CAD s/p PCI i@2008, LINQ implant with concern for Afib, HLD, HTN, DM, seizure d/o, bronchiectatic disease, Hx of CVA came with sudden onset of epigastric dyscomfort with cough and sputum, found NSTEMI and CAP
A/P:
#NSTEMI
#Acute on chronic HFrEF 2/2 ischemic CM
ASA, statin, BB
Heparin drip
Serial troponin peaked at 22.6
Cardio consult: s/p cath on 09/19/25 found tripple vessel disease, Severe in-stent restenosis of the mid-LAD stent, pending CABG eval
TSH WNL
LDL 107, on atorvastatin 40mg, reasonable to start outpatient PSCK9 inh
Echo: EF 24%, multiple LV segmental wall motion abnormalities, no significant valvular disease. Previous EF in december 2023 - 44%, also there are new wall motion abnormalities as addition to what was seen before
telemetry without clinically significant arrhythmia
#Acute repiratory insufficiency with suspected b/l pneumonia
#Bronchoectatic disease
Ceftriaxone/Doxy
COVID-19 neg
Influenza PCR neg
Legionella and S.pneumonia urinary Ag
Sputum Cx
Bcx NTD
Wean off O2
Bronchodilators
concern for PRAFUL - outpatient sleep study
#Elevated ddimer
with Hx of recent travel - check LE for DVT with US
CTA chest neg for pulmonary embolism
#DM type with unspecified complications and hyperglycemia
Adjust insulin
Hold oral hypoglycemics
Cont insulin basal, Add accuchecks, Insulin SS and DM diet
HgbA1c 11.5%. Most liekly non-adherence to DM diet
#Essential HTN
#HLD
#Hx of CVA
#Seizure d/o
seizure precautions
cont home meds
DVT ppx heparin drip
Full code
I have spent at least 59min reviewing chart, test results, communication with consultants, bedsisde and providing direct patient care
Anticipated Discharge: > 48 hours
Subjective/Interval History
-
Date of Service: September 20, 2025
Objective Data
-
Labs:
Laboratory Results
09/19/25 09/20/25 09/20/25
23:00 04:19 10:00
WBC 18.5 H
Hgb 11.1 L
Hct 31.2 L
Plt Count 200 D
APTT Cancelled Pending
Sodium 133 L
Potassium 4.3
Chloride 103
Carbon Dioxide 28
BUN 30 H
Creatinine 1.1
Glucose 195 H
Calcium 9.0 D
Total Bilirubin 0.8
AST 90 H
ALT 31
Alkaline Phosphatase 86
Vital Signs:
Vital Signs
Temp Pulse Resp BP Pulse Ox
98.7 F 90 18 102/65 95
09/20/25 07:26 09/20/25 04:30 09/20/25 07:26 09/20/25 04:01 09/20/25 07:26
I&O
09/19/25 09/20/25 09/21/25
06:59 06:59 06:59
Intake Total 480 / 480
Output Total 1250 / 1250
Balance -770 / -770
Review of Systems
-
History Source: Patient
All other systems: Reviewed and negative
Respiratory: Reports Cough
Physical Exam
-
General: No Apparent Distress
HEENT: Normocephalic
Respiratory: Clear to Auscultation
Cardiac: Regular Rhythm
Musculoskeletal: No Clubbing, No Cyanosis and No Edema
Neuro: Awake, Alert, Oriented and AO x 3
Psych: Calm
[2025-09-20 08:00] LABS: Glucose - Point of Care 225 mg/dl (70-99)
--- NOTE | 2025-09-20 08:20 | W.PN.CD ---
Today's Communication / Plan
-
Cont meds
CTS to eval
pricing of Entresto
Impression / Plan
-
I/P: 60M with CAD (NSTEMI, 2010), ischemic cardiomyopathy (LVEF 40%), type 2 diabetes mellitus, dyslipidemia, and CVA (s/p ILR) who presented to the emergency department with a chief complaint of indigestion
Primary Youth Corrections Officer: formerly Dr. Luna
Acute hypoxic respiratory insufficiency in the setting of pneumonia
-SpO2 92% on 3L NC
-COVID-negative, influenza pending, Legionella pending
-On abx per primary
Type II [place] in the setting of critical illness
-Prior NSTEMI he reported epigastric low substernal CP with an abnormal troponin
-Troponin 2.[address] abnormality, trend troponin
-ASA 324mg & heparin gtt
-Echocardiogram below
- multi-vessel CAD CTS consulted
Pneumonia
-With associated hypoxia
-Per primary
ICM (EF 24%),
-Bilateral pleural effusions on CT with associated orthopnea
-Furosemide 20mg IV x 1 now
-GDMT as tolerated
-Beta kristie: Carvedilol
-SGLT2i: Jardiance 10mg
-BENJI/ARB/ARNI: Can assess if BP will allow, has been hypotensive in the past
-MRA: Can consider if BP will allow
-Diuretic: He was not on a diuretic at home to maintain euvolemia
-ICD: LVEF no < 35% re-assess after max GDMT
-Trend daily weight, I/O, & BMP with diuresis
CAD
-Continue beta-kristie, aspirin, and statin
-Fasting lipid panel tomorrow, Hgba1c pending
Type 2 diabetes mellitus with hyperglycemia, Glucose 416, HgbA1c pending, per primary service
Hypercholesterolemia, on atorvastatin, continue
CVA
ILR, no significant events, recently interrogated, followed in our device clinic
Echo 09/19/2025: SUMMARY
1. Severely reduced left ventricular systolic function. LVEF 24%.
2. Multiple left ventricular segmental wall motion abnormalities are noted, as described below.
3. No significant valvular disease.
4. Compared to prior echocardiogram in December 2023, LVEF has decreased from 44%. There was previously septal and apical hypokinesis but there is now akinesis of these segments and other new regional wall motion abnormalities.
Subjective: Feeling improved no CV complaitns
Physical Exam
Vital Signs/Labs
Vital Signs
Temp Pulse Resp BP Pulse Ox
98.7 F 90 18 102/65 95
09/20/25 07:26 09/20/25 04:30 09/20/25 07:26 09/20/25 04:01 09/20/25 07:26
09/19/25 09/20/25 09/21/25
06:59 06:59 06:59
Actual Weight 187 lb 9.814 oz 186 lb 1.122 oz
09/20/25 04:19
09/20/25 04:19
APTT Cancelled 09/19/25 23:00
Magnesium 1.7 mg/dl (1.6-2.3) 09/19/25 04:08
Triglycerides 71 mg/dl (10-149) 09/19/25 04:08
LDL Cholesterol, Calc 107 mg/dl 09/19/25 04:08
VLDL Cholesterol, Calc 14 mg/dl (0-30) 09/19/25 04:08
HDL Cholesterol 45 mg/dl 09/19/25 04:08
09/19/25
04:08
Yrt-C-Zmbtrormdwo Pept 583
LAB Results
09/19/25 09/19/25 09/19/25
04:38 08:25 10:24
Troponin I 2.210 H* Cancelled 13.800 H* D
09/19/25 09/19/25 09/19/25
15:18 16:17 21:18
Troponin I Cancelled 22.600 H* D Cancelled
09/20/25
04:19
Troponin I 17.900 H*
Physical Exam
Constitutional: No acute distress
EENT: Anicteric
Cardiovascular: Rhythm & rate is regular and Pedal edema is absent
Respiratory: Respiratory effort normal and Lungs clear to auscul.
GI: Soft
Neuro/Psych: AO x 3
Other: Cath Site (c/d/i)
Data Reviewed
-
Date of Service: September 20, 2025
EKG: Tracing Personally Visualized and interpreted (sr)
Echo: Report Reviewed by me
Labs: Labs Reviewed by me
[2025-09-20] MEDS: MUCINEX 600 MG PO ×2 (08:33→20:09)
[2025-09-20] MEDS: ASPIR LOW (ENTERIC COATED) 81 MG PO (08:42)
[2025-09-20] MEDS: COREG PO (08:43)
[2025-09-20] MEDS: KEPPRA PO (08:43)
[2025-09-20] MEDS: LANTUS 0.27 UNITS SC (08:44)
[2025-09-20] MEDS: STERILE WATER FOR INJECTION 10 ML IV (08:44)
[2025-09-20] MEDS: VIBRAMYCIN 100 MG PO ×2 (08:44→20:09)
[2025-09-20] MEDS: ROCEPHIN 1000 MG IV (08:45)
--- NOTE | 2025-09-20 09:27 | W.PN.UPDATE ---
Update Note
Progress Note Update
CARDIAC SURGERY ATTENDING: (FULL CONSULT TO FOLLOW)
60M w/ PMHx sig for CAD s/p PCI 2008, LINQ implant for ? PAF, HLD, HTN, DM, Sz disorder, bronchiectatic dz, CVA, p/w epigastric discomfort, cough w/ sputum production, NSTEMI and B/L PNA
CATH � MVCAD (60% LM, LAD w/ multuiple 90-95% stenosis/ISR, ostial LCx 80%, ostial OM1 80%, OM2 severe diffuse, RCA 80% mid, 70% distal, 70% ostial RPDA [small coronary targets]
ECHO � LVEF 24% (mid and apical anterior and inferior septum, apical inferior segment, and apex are AKINETIC.� The entire anterior wall, basal and mid inferior hui, basal anteroseptal segment, basal inferoseptal segment, mid
inferolateral segment, and apical lateral segment are hypokinetic); trace AI, mild MR, no TR, no FL
EKG � sinus tachycardia at 105, LAE, ? inferior infarct, anteroseptal infarct, ? lateral subendocardial injury
CT-C � widespread B/L groundglass opacities (most in RUL and RML), small B/L effusions, mild mediastinal/hilar lymphadenopathy � looks for inflammatory/infectious than CHF related.� No significant ascending aortic calcifications
LABS: WBC 18.5, Hgb 11.1, PLT 200, creat 1.1, BS 195, CTNI 17.9 (down from 22.6), alb 3.2
-��������� Check carotid U/S
-��������� Check radial arterial studies
-��������� OR timing TBD
Continue medical management of NSTEMI, B/L PNA
Challenging surgical case w/ small coronary targets and significantly reduced LV function
Will require multi-disciplinary discussion.� I believe eventual surgery will be Mr. Gudino best option, but this will require perioperative LVAD support.� Will progress with preoperative w/u while discussions and medical management for his PNAs is
ongoing.� Surgical timing TBD
[2025-09-20] MEDS: NOVOLOG FLEXPEN-HIGH RESISTANCE 4 UNITS SC (10:24)
[2025-09-20] MEDS: COREG 12.5 MG PO (10:25)
[2025-09-20 10:43] LABS: APTT 70.2 Sec (23.4-35.0)
[2025-09-20 12:11] LABS: Glucose - Point of Care 273 mg/dl (70-99)
--- NOTE | 2025-09-20 12:56 | CONSULT.CT ---
Consultation
-
Requesting Provider: Johanna Luis MD
Performing Provider: Sami Dubois PA-C
Reason for Consultation: MVCAD
Patient History
Physicians
Family Physician: ROSALEE Orr
Inpatient Lock Up Worker: Kashif Soliz MD
History of Present Illness
60yo M with PMHx of CAD s/p PCI i@2008, LINQ implant due to concern for Afib, HLD, HTN, DM, bronchiectatic disease, Hx of CVA with seizure d/o thereafter presented to the ED with sudden onset of epigastric dyscomfort during his Thanksgiving meal
which persisted overnight and he developed a cough and orthopnea. Has HX of recent travel to [place] 2 weeks ago. Notable labs include a D-dimer of 0.98, troponin 2.210, glucose 416, and WBCs of 18.6. Chest CT did not have any evidence of PE
but he did have widespread bilateral ground glass opacities and small bilateral pleural effusions concerning for infectious process. Cardiology was consulted for abnormal troponin evaluation. Noted to sat 85% overnight on RA. He underwent LHC and
RHC last evening which revealed severe triple vessel CAD involving the RCA, left main, LAD, with in-stent restenosis of the mid-LAD stent. He was noted to have elevated right and left sided filling pressures, normal cardiac output. CT surgery was
consulted as he was deemed an overall poor PCI candidate due to high SYNTAX score (> 32), severe in-stent restenosis within the LAD, and the presence of triple vessel disease.
Past Medical History
Past Medical History: Atrial Fib, CVA/TIA, HTN, Hypercholesterolemia, IDDM and Other (seizures following CVA)
Social History
Alcohol: Occasional
Drug: None
Tobacco: Non-Smoker
Personal:
Living: With Spouse
Allergies
Allergy/AdvReac Type Severity Reaction Status Date / Time
No Known Allergies Allergy Verified 09/19/25 09:35
Home Medications
�Medication �Instructions �Recorded �Confirmed �Type
calcium carbonate 500 mg PO DAILY Supplement 10/31/23 09/19/25 History
cholecalciferol (vitamin D3) 25 25 mcg PO DAILY Supplement 10/31/23 09/19/25 History
mcg (1,000 unit) tablet (Vitamin
D3)
cyanocobalamin (vitamin B-12) 1,000 mcg PO DAILY Supplement 10/31/23 09/19/25 History
1,000 mcg tablet
insulin glargine 100 unit/mL 24 unit SC HS Diabetes 10/31/23 09/19/25 History
subcutaneous solution (Lantus
U-100 Insulin)
metformin 1,000 mg tablet 1,000 mg PO QPM Diabetes 10/31/23 09/19/25 History
therapeutic multivitamin 1 tab PO DAILY Supplement 10/31/23 09/19/25 History
atorvastatin 80 mg tablet (Lipitor) 40 mg PO HS High Cholesterol 11/01/23 09/19/25 History
aspirin 81 mg tablet 81 mg PO DAILY 11/17/23 09/19/25 History
coQ10 (ubiquinol) 100 mg capsule 100 mg PO DAILY Supplement 09/19/25 09/19/25 History
ezetimibe 10 mg tablet (Zetia) 10 mg PO QPM High Cholesterol 09/19/25 09/19/25 History
carvedilol 12.5 mg tablet (Coreg) 12.5 mg PO 1XD 09/20/25 09/20/25 History
carvedilol 25 mg tablet (Coreg) 25 mg PO HS 09/20/25 09/20/25 History
levetiracetam 500 mg tablet 500 mg PO HS 09/20/25 09/20/25 History
(Keppra)
Review of Systems
-
History Source: Patient and Family
General: Denies Fever, Weight Gain or Weight Loss
HEENT: Denies Visual Changes or Sore Throat
Respiratory: Reports SOB and Cough
Cardiac: Reports CAD
Abdomen/GI: Reports Indigestion
: Reports No Symptoms
Musculoskeletal: Reports No Symptoms
Skin: Reports No Symptoms
Neurological: Reports CVA and Seizures
Vascular: Reports No Symptoms
Physical Exam
Vital Signs
Temp 98.8 F 09/20/25 11:51
Temp route: Oral 09/20/25 11:51
Pulse 86 09/20/25 11:51
Rhythm: Normal sinus rhythm 09/20/25 09:02
With- Sinus tachycardia 09/19/25 10:17
Resp Rate 18 09/20/25 11:51
Blood pressure 90/57 09/20/25 11:51
Blood pressure extremity used: Right upper arm 09/20/25 11:51
Position: Lying 09/20/25 11:51
MAP (cuff-Enma Monitor) 67 09/20/25 11:51
SaO2 96 09/20/25 11:51
Nasal Cannula flow liters per minute 4 09/20/25 11:51
Oxygen Mode of Delivery Room air 09/19/25 15:36
Acceptable pain level during hospitalization? 0 09/19/25 03:50
Can the patient verbally communicate their pain? Yes 09/20/25 09:02
Pain scale ratin 09/19/25 09:40
Actual Weight 84.4 kg 09/20/25 01:31
Body Mass Index (BMI) 28.3 09/20/25 01:31
Labs
09/20/25 04:19
09/20/25 04:19
APTT 70.2 Sec (23.4-35.0) H 09/20/25 10:19
Hemoglobin A1c Cancelled 09/19/25 07:55
Troponin I 17.900 ng/ml H* 09/20/25 04:19
Hid-A-Wnnawjkwfrr Pept 583 pg/ml 09/19/25 04:08
Exam
General: Well Developed, Well Nourished and No Apparent Distress
HEENT: Normocephalic, PERRLA and EOMI
Neck: Carotid Bruit
Respiratory: Other (decreased BS on left); Negative Wheezes or Rhonchi
Cardiac: Regular Rhythm; Negative Murmur, Rub or Gallop
GI: Soft, Non Tender and Non Distended
Rectal: Deferred by Provider
Skin: Warm
Neuro: AO x 3
Psych: Calm
Assessment / Plan
-
1. NSTEMI
2. progresseive CAD with in-stent restenosis.
3. PNA
4. ICM (EF 24%, decreaed from 40%)
5. DM
6. HTN with hypotension upon admission
7. HLD
8. CVA
9. Seizure d/o
Plan:
1. ASA 324mg & heparin gtt
2. Will order rawls arch studies and carotid US as workup for CABG. Needs to recover from his pneumonia prior to surgical revascularization. On ASA, BBl, and statin.
3. treatment per primary team.
4. GDMT as tolerated, currently on Carvedilol
5. per primary team.
6. BBl, GDMT for heart failure as BP allows.
7. statin therapy
8. no residual
9. On Keppra
[2025-09-20] MEDS: NOVOLOG FLEXPEN-HIGH RESISTANCE 7 UNITS SC (13:08)
[2025-09-20 17:27] LABS: Glucose - Point of Care 192 mg/dl (70-99)
[2025-09-20 17:33] LABS: Hematocrit 32.0 % (39.0-52.0); Hemoglobin 11.2 g/dL (13.0-18.0)
[2025-09-20 17:41] LABS: APTT 110.7 Sec (23.4-35.0)
[2025-09-20] MEDS: NOVOLOG FLEXPEN-HIGH RESISTANCE 2 UNITS SC (18:38)
--- NOTE | 2025-09-20 19:31 | PTCARENOTE ---
Pt sleepy for much of the day. He denies any discomfort. SBP's 90-106. Telemetry shows sinus rhythm with rare triplet. Pt with poor appetite, not drinking much fluid . Pt states he voided in the morning but not since with no feeling of bladder
distention. Will monitor closely. Heparin infusion in progress, not yet therapeutic.
[2025-09-20] MEDS: COREG 25 MG PO (20:10)
[2025-09-20] MEDS: MAALOX 30 ML PO (21:42)
[2025-09-20] MEDS: KEPPRA 500 MG PO (22:40)
[2025-09-20] MEDS: LIPITOR 80 MG PO (22:40)
[2025-09-20 22:44] LABS: Glucose - Point of Care 202 mg/dl (70-99)
--- NOTE | 2025-09-20 23:25 | PTCARENOTE ---
Tele remains NSR, HR in the 80's. Sating 94-96% on 4L of O2. Denies any SOB and has an occasional CONTINUITY COORDINATOR dry cough. C/o 'mild' heart burn. Pt received Maalox at approx 21:42. Pt w/ good relief. Voids juliane color urine. Ambulates self, denies any
dizziness. C/o generalized weakness. Right radial/right brachial dressing C/D/I. Call george in reach.
[2025-09-21] VITALS (8 sets, daily range): BP systolic 94–116; BP diastolic 57–76; BMI 28.6
[2025-09-21 00:24] LABS: APTT 128.7 Sec (23.4-35.0)
[2025-09-21 06:33] LABS: Hematocrit 29.0 % (39.0-52.0); Hemoglobin 10.0 g/dL (13.0-18.0); Mean Corp Hgb Conc. 34.5 g/dL (33.0-37.0); Mean Corpuscular Volume 88.7 fL (80.0-94.0); Nucleated Red Blood Cells % 0 % (-); Platelet Count 172 10^3/uL (130-400); Red Cell Dist. Width 13.4 % (11.5-14.5)
[2025-09-21 06:46] LABS: APTT 136.9 Sec (23.4-35.0)
[2025-09-21 08:15] LABS: ALT (SGPT) 25 U/L (0-50); AST (SGOT) 36 U/L (17-59); Albumin 3.0 g/dl (3.5-5.0); Alkaline Phosphatase 76 U/L (38-126); Blood Urea Nitrogen 36 mg/dl (9-20); Calcium 8.1 mg/dl (8.4-10.2); Carbon Dioxide 23 mmol/L (22-30); Chloride 105 mmol/L (98-107); Estimated Creatinine Clearance 76 ml/min; Glucose 161 mg/dl (70-99); Potassium 3.9 mmol/L (3.5-5.1); Sodium 133 mmol/L (135-145); Total Protein 5.1 g/dl (6.3-8.2); eGFR > 60.00
[2025-09-21] MEDS: LANTUS 0.27 UNITS SC (08:32)
[2025-09-21] MEDS: VIBRAMYCIN 100 MG PO ×2 (08:33→20:19)
[2025-09-21] MEDS: ASPIR LOW (ENTERIC COATED) 81 MG PO (08:33)
[2025-09-21] MEDS: ROCEPHIN 1000 MG IV (08:33)
[2025-09-21] MEDS: MUCINEX 600 MG PO ×2 (08:33→20:19)
[2025-09-21] MEDS: STERILE WATER FOR INJECTION 10 ML IV (08:33)
[2025-09-21] MEDS: COREG 12.5 MG PO (08:36)
[2025-09-21 09:02] LABS: Glucose - Point of Care 186 mg/dl (70-99)
[2025-09-21] MEDS: NOVOLOG FLEXPEN-HIGH RESISTANCE 2 UNITS SC (09:31)
--- NOTE | 2025-09-21 11:35 | W.PN.HOSP.TC ---
Today's Communication/Plan
-
feeling better - however still b/l crackles. Discussd with card and will give LAsix x1
CABG w/u as per card
cont Abx as patient improving, WBC also decreasing
Assessment / Plan
Assessment / Plan
60yo M with PMHx of CAD s/p PCI i@2008, LINQ implant with concern for Afib, HLD, HTN, DM, seizure d/o, bronchiectatic disease, Hx of CVA came with sudden onset of epigastric dyscomfort with cough and sputum, found NSTEMI and CAP
A/P:
#NSTEMI
#Acute on chronic HFrEF 2/2 ischemic CM
ASA, statin, BB
Heparin drip
Serial troponin peaked at 22.6
Cardio consult: s/p cath on 09/19/25 found tripple vessel disease, Severe in-stent restenosis of the mid-LAD stent, pending CABG eval
TSH WNL
LDL 107, on atorvastatin 40mg, reasonable to start outpatient PSCK9 inh
Echo: EF 24%, multiple LV segmental wall motion abnormalities, no significant valvular disease. Previous EF in december 2023 - 44%, also there are new wall motion abnormalities as addition to what was seen before
telemetry without clinically significant arrhythmia
#Acute repiratory insufficiency with suspected b/l pneumonia
#Bronchoectatic disease
Ceftriaxone/Doxy
COVID-19 neg
Influenza PCR neg
Legionella and S.pneumonia urinary Ag neg
Sputum Cx NTD
Bcx NTD
Wean off O2
Bronchodilators
concern for PRAFUL - outpatient sleep study
#Elevated ddimer
acute phase reactant
US LE neg for DVT
CTA chest neg for pulmonary embolism
#DM type with unspecified complications and hyperglycemia
Adjust insulin
Hold oral hypoglycemics
Cont insulin basal, Add accuchecks, Insulin SS and DM diet
HgbA1c 11.5%. Most liekly non-adherence to DM diet
#Essential HTN
#HLD
#Hx of CVA
#Seizure d/o
seizure precautions
cont home meds
DVT ppx heparin drip
Full code
I have spent at least 51min reviewing chart, test results, communication with consultants, bedsisde and providing direct patient care
Anticipated Discharge: > 48 hours
Subjective/Interval History
-
Date of Service: September 21, 2025
Objective Data
-
Labs:
Laboratory Results
09/21/25 09/21/25 09/21/25
00:02 06:23 06:24
WBC 15.7 H
Hgb 10.0 L
Hct 29.0 L
Plt Count 172
APTT 128.7 H 136.9 H
Sodium 133 L
Potassium 3.9
Chloride 105
Carbon Dioxide 23
BUN 36 H
Creatinine 1.0
Glucose 161 H
Calcium 8.1 L
Total Bilirubin 0.9
AST 36
ALT 25
Alkaline Phosphatase 76
09/21/25
14:10
WBC
Hgb
Hct
Plt Count
APTT Pending
Sodium
Potassium
Chloride
Carbon Dioxide
BUN
Creatinine
Glucose
Calcium
Total Bilirubin
AST
ALT
Alkaline Phosphatase
Vital Signs:
Vital Signs
Temp Pulse Resp BP Pulse Ox
98.1 F 80 16 103/63 98
09/21/25 11:18 09/21/25 11:19 09/21/25 11:18 09/21/25 11:19 09/21/25 11:34
I&O
09/20/25 09/21/25 09/22/25
06:59 06:59 06:59
Intake Total 480 / 480 605 / 605
Output Total 1250 / 1250 425 / 425
Balance -770 / -770 180 / 180
Review of Systems
-
History Source: Patient
All other systems: Reviewed and negative
Physical Exam
-
General: No Apparent Distress
HEENT: Normocephalic
Respiratory: Crackles (b/l)
Cardiac: Regular Rhythm
GI: Soft, Nontender and Nondistended
Musculoskeletal: No Clubbing, No Cyanosis, Edema, Right Lower Extrem and Edema, Left Lower Extrem
Skin: Warm
Psych: Calm
[2025-09-21] MEDS: LASIX 20 MG IV (11:45)
[2025-09-21] MEDS: TYLENOL 650 MG PO (11:56)
[2025-09-21] MEDS: HEPARIN 25000 UNITS/250 ML IV (12:09)
[2025-09-21 13:02] LABS: Glucose - Point of Care 249 mg/dl (70-99)
[2025-09-21] MEDS: NOVOLOG FLEXPEN-HIGH RESISTANCE 4 UNITS SC (13:06)
--- NOTE | 2025-09-21 13:20 | W.PN.CD ---
Today's Communication / Plan
-
Surgical planning with likely Impella support
Continue meds
Impression / Plan
-
I/P: 60M with CAD (NSTEMI, 2010), ischemic cardiomyopathy (LVEF 40%), type 2 diabetes mellitus, dyslipidemia, and CVA (s/p ILR) who presented to the emergency department with a chief complaint of indigestion
Primary Tree Girdler: formerly Dr. Luna
Acute hypoxic respiratory insufficiency in the setting of pneumonia
-SpO2 92% on 3L NC
-COVID-negative, influenza pending, Legionella pending
-On abx per primary
Likely NSTEMI versus type II [place]
-Prior NSTEMI he reported epigastric low substernal CP with an abnormal troponin
-Troponin peak troponin 22
- Continue heparin gtt
-Echocardiogram below
- multi-vessel CAD CTS consulted pending surgical planning likely will need Impella support
Pneumonia
-With associated hypoxia
-Per primary
ICM (EF 24%),
-Bilateral pleural effusions on CT with associated orthopnea
-Furosemide 20mg IV x 1 now
-GDMT as tolerated
-Beta kristie: Carvedilol
-SGLT2i: Jardiance 10mg
-BENJI/ARB/ARNI: Can assess if BP will allow, has been hypotensive in the past
-MRA: Can consider if BP will allow
-Diuretic: He was not on a diuretic at home to maintain euvolemia
-ICD: LVEF no < 35% re-assess after max GDMT
-Trend daily weight, I/O, & BMP with diuresis
CAD
-Continue beta-kristie, aspirin, and statin
-Fasting lipid panel tomorrow, Hgba1c pending
Type 2 diabetes mellitus with hyperglycemia, Glucose 416, HgbA1c pending, per primary service
Hypercholesterolemia, on atorvastatin, continue
CVA
ILR, no significant events, recently interrogated, followed in our device clinic
Echo 09/19/2025: SUMMARY
1. Severely reduced left ventricular systolic function. LVEF 24%.
2. Multiple left ventricular segmental wall motion abnormalities are noted, as described below.
3. No significant valvular disease.
4. Compared to prior echocardiogram in December 2023, LVEF has decreased from 44%. There was previously septal and apical hypokinesis but there is now akinesis of these segments and other new regional wall motion abnormalities.
Subjective: No new cardiovascular complaints
Physical Exam
Vital Signs/Labs
Vital Signs
Temp Pulse Resp BP Pulse Ox
98.1 F 80 16 103/63 98
09/21/25 11:18 09/21/25 11:19 09/21/25 11:18 09/21/25 11:45 09/21/25 11:34
09/20/25 09/21/25 09/22/25
06:59 06:59 06:59
Actual Weight 186 lb 1.122 oz 188 lb 0.869 oz
09/21/25 06:24
09/21/25 06:23
APTT 136.9 Sec (23.4-35.0) H 09/21/25 06:23
Magnesium 1.7 mg/dl (1.6-2.3) 09/19/25 04:08
Triglycerides 71 mg/dl (10-149) 09/19/25 04:08
LDL Cholesterol, Calc 107 mg/dl 09/19/25 04:08
VLDL Cholesterol, Calc 14 mg/dl (0-30) 09/19/25 04:08
HDL Cholesterol 45 mg/dl 09/19/25 04:08
09/19/25
04:08
Kdk-S-Ljjrktlrzwt Pept 583
LAB Results
09/19/25 09/19/25 09/19/25
04:38 08:25 10:24
Troponin I 2.210 H* Cancelled 13.800 H* D
09/19/25 09/19/25 09/19/25
15:18 16:17 21:18
Troponin I Cancelled 22.600 H* D Cancelled
09/20/25
04:19
Troponin I 17.900 H*
Physical Exam
Constitutional: No acute distress and Comfortable
EENT: Anicteric
Cardiovascular: Rhythm & rate is regular and Pedal edema is absent
Respiratory: Respiratory effort normal and Crackles Present
GI: Soft
Neuro/Psych: AO x 3
Data Reviewed
-
Date of Service: September 21, 2025
Medical Decision Making: Reviewed Test Results (Cath)
EKG: Tracing Personally Visualized and interpreted (SR)
Echo: Report Reviewed by me
Labs: Labs Reviewed by me
[2025-09-21 16:31] LABS: Glucose - Point of Care 282 mg/dl (70-99)
[2025-09-21] MEDS: NOVOLOG FLEXPEN-HIGH RESISTANCE 7 UNITS SC (16:32)
[2025-09-21] MEDS: COREG 25 MG PO (18:26)
--- NOTE | 2025-09-21 19:11 | PTCARENOTE ---
Pt OOB to chair and walked into [place] with encouragement without problem. Pt denies any SOB , on room air with sat of 94%. Pt using IS to 1750mls. Heparin infusion not yet therapeutic, extreme difficulty obtaining a satisfactory PTT sample due at
14:10 inspite of multiple attempts . Midline catheter now being placed at 19:15 by IV team per order of and a PTT will be sent. (Heparin infusion continued at prior rate of 1300 units since last adjustment). Telemetry shows sinus rhythm.
[2025-09-21 19:52] LABS: APTT 57.6 Sec (23.4-35.0)
[2025-09-21 22:44] LABS: Glucose - Point of Care 215 mg/dl (70-99)
[2025-09-21] MEDS: KEPPRA 500 MG PO (22:46)
[2025-09-21] MEDS: LIPITOR 80 MG PO (22:46)
[2025-09-22] VITALS (9 sets, daily range): BP systolic 111–141; BP diastolic 70–80; BMI 28.7
[2025-09-22 02:53] LABS: Hematocrit 29.5 % (39.0-52.0); Hemoglobin 10.2 g/dL (13.0-18.0); Mean Corp Hgb Conc. 34.6 g/dL (33.0-37.0); Mean Corpuscular Volume 88.6 fL (80.0-94.0); Nucleated Red Blood Cells % 0 % (-); Platelet Count 179 10^3/uL (130-400); Red Cell Dist. Width 13.4 % (11.5-14.5)
[2025-09-22 03:13] LABS: APTT 85.1 Sec (23.4-35.0)
[2025-09-22 03:28] LABS: ALT (SGPT) 24 U/L (0-50); AST (SGOT) 30 U/L (17-59); Albumin 3.2 g/dl (3.5-5.0); Alkaline Phosphatase 87 U/L (38-126); Blood Urea Nitrogen 39 mg/dl (9-20); Calcium 8.5 mg/dl (8.4-10.2); Carbon Dioxide 28 mmol/L (22-30); Chloride 103 mmol/L (98-107); Estimated Creatinine Clearance 69 ml/min; Glucose 142 mg/dl (70-99); Potassium 4.0 mmol/L (3.5-5.1); Sodium 133 mmol/L (135-145); Total Protein 5.6 g/dl (6.3-8.2); eGFR > 60.00
--- NOTE | 2025-09-22 03:41 | PTCARENOTE ---
Tele remains SR, denies any chest discomfort. Sating 94% on RA, lung sounds decreased in the bases. Attempted to perform CHG hygiene wipes, pt refused at this time stating he will perform them later when his comes in later today. Educated pt
on the importance of using the CHG wipes for his new midline. IV heparin drip maintained, next PTT due at 08:30. Reviewed plan of care with patient. Pt ambulates independently in the room, call george within reach.
--- NOTE | 2025-09-22 04:26 | PTCARENOTE ---
Addendum entered by Jeannette Bynum RN 09/22/25 04:32:
Pt reported has not had a BM since 09/18, denies feeling constipated. Appetite poor. Offered PRN medications and Pt refuses at this time.
Original Note:
Pt rang call george, pt sitting in chair complaining of SOB, denies exerting himself, sating 93% on RA. Applied 2L O2 for comfort, sats went up to 95% on 2L. Pt reports breathing 'it feels better'. Instructed pt to perform deep breathing exercises.
--- NOTE | 2025-09-22 07:00 | PTCARENOTE ---
received patient at change of shift from previous RN. Pt AAOX3, resting comforably OOB in chair. pt denies chest pain, SOB. NSR on telemetry heart rate in 80s. weakly palpable pulses. pt on room air, sat 95%. lung sounds diminished. active bowel
sounds. voiding in bathroom without difficulty. right upper arm midline in place. heparin infusing per protocol. pt updated on plan of care. see worklist for full nursing assessment and interventions.
[2025-09-22] MEDS: HEPARIN 25000 UNITS/250 ML IV ×2 (07:22→23:15)
[2025-09-22 07:49] LABS: Glucose - Point of Care 149 mg/dl (70-99)
--- NOTE | 2025-09-22 07:54 | W.PN.UPDATE ---
Addendum entered and electronically signed by Hunter Michelle MD 09/22/25 14:07:
See updated STS risk, score is closer to 5%
Original Note:
Update Note
Progress Note Update
STS Risk:
Procedure Type:�Isolated CABG
Perioperative Outcome Estimate %
Operative Mortality 2.98%
Morbidity & Mortality 17.7%
Stroke 3.88%
Renal Failure 3.96%
Reoperation 3.14%
Prolonged Ventilation 10.8%
Deep Sternal Wound Infection 0.365%
Long Hospital Stay (>14 days) 12.6%
Short Hospital Stay (<6 days)* 21.4%
Clinical Summary
Planned Surgery: Isolated CABG, Urgent, First cardiovascular surgery
Demographics: 60 year old, male, 86kg, 173cm, BMI: 28.7 kg/m�
Lab Values: Creatinine: 1.1 mg/dL, Hematocrit: 29.5%, WBC Count: 11.8 10�/�L, Platelet Count: 351898 cells/�L
PreOp Medications: Insulin diabetes control
Substance Abuse: Never smoker, Alcohol use: <=1 drink/week
Risk Factors / Comorbidities: Insulin-dependent Diabetes Mellitus, Hypertension
Pulmonary RF: Severity Unknown CLD, Recent Pneumonia
Vascular RF: Cerebrovascular Disease: CVA > 30 days
Cardiac Status: Chronic heart failure, NYHA Class III, Ejection Fraction = 25%
Coronary Artery Disease: 3 vessels diseased, Proximal LAD Stenosis >=70%, Non-ST Elevation WA, WA: 1 to 7 Days
Valve Disease: Trivial/Trace AR, Mild MR
Prev. Cardiac Interv: Previous PCI: Not during this episode of care
--- NOTE | 2025-09-22 08:04 | W.PN.CD ---
Today's Communication / Plan
-
- Plan for surgical intervention later this week
Impression / Plan
-
I/P: 60M with CAD (NSTEMI, 2010), ischemic cardiomyopathy (LVEF 40%), type 2 diabetes mellitus, dyslipidemia, and CVA (s/p ILR) who presented to the emergency department with a chief complaint of indigestion
Primary Seat Scooper Machine: formerly Dr. Luna
Acute hypoxic respiratory insufficiency in the setting of pneumonia
-SpO2 92% on 3L NC
-COVID-negative, influenza -ve, Legionella -ve. Strep pneumo -ve
-On abx per primary
Likely NSTEMI versus type II [place]
- Prior NSTEMI he reported epigastric low substernal CP with an abnormal troponin
- Troponin peak troponin 22
- Continue heparin gtt
- Echocardiogram below
- multi-vessel CAD CTS consulted pending surgical planning likely will need Impella support
- Under treatment for PNA and surgical intervention planned once infection is cleared. WBC are better.
Pneumonia
-With associated hypoxia
-Per primary
ICM (EF 24%),
-Bilateral pleural effusions on CT with associated orthopnea
-Furosemide 20mg IV x 1 now
-GDMT as tolerated
-Beta kristie: Carvedilol
-SGLT2i: Jardiance 10mg
-BENJI/ARB/ARNI: Can assess if BP will allow, has been hypotensive in the past
-MRA: Can consider if BP will allow
-Diuretic: He was not on a diuretic at home to maintain euvolemia
-ICD: LVEF now < 35% re-assess after max GDMT and revascularization.
-Trend daily weight, I/O, & BMP with diuresis
CAD
-Continue beta-kristie, aspirin, and statin
-LDL 107, Hgba1c - 11.5 - both elevated
-TSH 2.3 - Normal.
Type 2 diabetes mellitus with hyperglycemia, Glucose 416, HgbA1c pending, per primary service
Hypercholesterolemia, on atorvastatin, continue
CVA
ILR, no significant events, recently interrogated, followed in our device clinic
Echo 09/19/2025: SUMMARY
1. Severely reduced left ventricular systolic function. LVEF 24%.
2. Multiple left ventricular segmental wall motion abnormalities are noted, as described below.
3. No significant valvular disease.
4. Compared to prior echocardiogram in December 2023, LVEF has decreased from 44%. There was previously septal and apical hypokinesis but there is now akinesis of these segments and other new regional wall motion abnormalities.
Subjective: No new cardiovascular complaints
Physical Exam
Vital Signs/Labs
Vital Signs
Temp Pulse Resp BP Pulse Ox
98.3 F 73 20 111/75 98
09/22/25 07:07 09/22/25 06:00 09/22/25 07:07 09/22/25 02:43 09/22/25 07:07
09/21/25 09/22/25 09/23/25
06:59 06:59 06:59
Actual Weight 85.3 kg 85.7 kg
09/22/25 02:39
09/22/25 02:38
APTT 85.1 Sec (23.4-35.0) H 09/22/25 02:38
Magnesium 1.7 mg/dl (1.6-2.3) 09/19/25 04:08
Triglycerides 71 mg/dl (10-149) 09/19/25 04:08
LDL Cholesterol, Calc 107 mg/dl 09/19/25 04:08
VLDL Cholesterol, Calc 14 mg/dl (0-30) 09/19/25 04:08
HDL Cholesterol 45 mg/dl 09/19/25 04:08
09/19/25
04:08
Tfn-N-Dpxltpnveac Pept 583
LAB Results
09/19/25 09/19/25 09/19/25
08: 10:24 15:18
Troponin I Cancelled 13.800 H* D Cancelled
09/19/25 09/19/25 09/20/25
16:17 21:18 04:19
Troponin I 22.600 H* D Cancelled 17.900 H*
Physical Exam
Constitutional: No acute distress and Comfortable
EENT: Anicteric and Moist mucous membranes
Cardiovascular: Rhythm & rate is regular, Pedal edema is absent and JVD pressure is normal
Respiratory: Respiratory effort normal and Lungs clear to auscul.
GI: Soft, Flat and Non tender
Neuro/Psych: Alert, Oriented and AO x 3
Data Reviewed
-
Date of Service: September 22, 2025
Medical Decision Making: Reviewed Test Results, Test Interpretation and Review of Case with other Provider
EKG: Tracing Personally Visualized and interpreted
Echo: Report Reviewed by me
Medical Tests (PFT, Pathology etc): Image Personally Visualized and interpreted
Labs: Labs Reviewed by me
Old Records: Reviewed
[2025-09-22] MEDS: VIBRAMYCIN 100 MG PO ×2 (08:09→21:00)
[2025-09-22] MEDS: MUCINEX 600 MG PO ×2 (08:09→21:00)
[2025-09-22] MEDS: ASPIR LOW (ENTERIC COATED) 81 MG PO (08:09)
[2025-09-22] MEDS: COREG 12.5 MG PO (08:09)
[2025-09-22] MEDS: STERILE WATER FOR INJECTION 10 ML IV (08:10)
[2025-09-22] MEDS: LANTUS 0.27 UNITS SC (08:10)
[2025-09-22] MEDS: ROCEPHIN 1000 MG IV (08:10)
[2025-09-22] MEDS: NOVOLOG FLEXPEN-HIGH RESISTANCE 1 UNITS SC (08:11)
[2025-09-22 09:18] LABS: APTT 70.3 Sec (23.4-35.0); PT 15.6 Sec (11.4-14.6)
[2025-09-22 09:28] LABS: INR 1.22
[2025-09-22] MEDS: LASIX 40 MG IV (10:50)
[2025-09-22] MEDS: KCL 20 MEQ PO (10:50)
--- NOTE | 2025-09-22 11:11 | W.PN.HOSP.TC ---
Today's Communication/Plan
-
leukocytosis improved, feeling better, agree with AM lasix with some residual bibasilar crackles, cont same Abx, target 7 days.
W/u for CABG pending, cont hepartin meanwhile
Assessment / Plan
Assessment / Plan
60yo M with PMHx of CAD s/p PCI i@2008, LINQ implant with concern for Afib, HLD, HTN, DM, seizure d/o, bronchiectatic disease, Hx of CVA came with sudden onset of epigastric dyscomfort with cough and sputum, found NSTEMI and CAP
A/P:
#NSTEMI
#Acute on chronic HFrEF 2/2 ischemic CM
ASA, statin, BB
Heparin drip
Serial troponin peaked at 22.6
Cardio consult: s/p cath on 09/19/25 found tripple vessel disease, Severe in-stent restenosis of the mid-LAD stent, pending CABG
CABG w/u: carotid US, CT Chest/Abd/pelvis and palmar arch US reading pending
TSH WNL
LDL 107, on atorvastatin 40mg, reasonable to start outpatient PSCK9 inh
Echo: EF 24%, multiple LV segmental wall motion abnormalities, no significant valvular disease. Previous EF in december 2023 - 44%, also there are new wall motion abnormalities as addition to what was seen before
telemetry without clinically significant arrhythmia
#Acute repiratory insufficiency with suspected b/l pneumonia
#Bronchoectatic disease
Ceftriaxone/Doxy
COVID-19 neg
Influenza PCR neg
Legionella and S.pneumonia urinary Ag neg
Sputum Cx NTD
Bcx NTD
Weaned off O2 as of 09/22/25
Bronchodilators
concern for PRAFUL - outpatient sleep study
#Elevated ddimer
acute phase reactant
US LE neg for DVT
CTA chest neg for pulmonary embolism
#DM type with unspecified complications and hyperglycemia
Adjust insulin
Hold oral hypoglycemics
Cont insulin basal, Add accuchecks, Insulin SS and DM diet
HgbA1c 11.5%. Most liekly non-adherence to DM diet
#Essential HTN
#HLD
#Hx of CVA
#Seizure d/o
seizure precautions
cont home meds
DVT ppx heparin drip
Full code
I have spent at least 51min reviewing chart, test results, communication with consultants, bedsisde and providing direct patient care
Anticipated Discharge: > 48 hours
Subjective/Interval History
-
Date of Service: September 22, 2025
Objective Data
-
Labs:
Laboratory Results
09/22/25 09/22/25 09/22/25
02:38 02:39 08:45
WBC 11.8 H
Hgb 10.2 L
Hct 29.5 L
Plt Count 179
PT 15.6 H
INR 1.22
APTT 85.1 H 70.3 H
Sodium 133 L
Potassium 4.0
Chloride 103
Carbon Dioxide 28
BUN 39 H
Creatinine 1.1
Glucose 142 H
Calcium 8.5
Total Bilirubin 1.0
AST 30
ALT 24
Alkaline Phosphatase 87
09/22/25 09/22/25
13:00 16:45
WBC
Hgb
Hct
Plt Count
PT
INR
APTT Pending
Sodium Pending
Potassium Pending
Chloride Pending
Carbon Dioxide Pending
BUN Pending
Creatinine Pending
Glucose Pending
Calcium Pending
Total Bilirubin
AST
ALT
Alkaline Phosphatase
Vital Signs:
Vital Signs
Temp Pulse Resp BP Pulse Ox
97.8 F 77 16 128/70 95
09/22/25 10:59 09/22/25 10:59 09/22/25 10:59 09/22/25 08:09 09/22/25 10:59
I&O
09/21/25 09/22/25 09/23/25
06:59 06:59 06:59
Intake Total 605 / 605 898 / 898
Output Total 425 / 425 1075 / 1075
Balance 180 / 180 -177 / -177
Review of Systems
-
History Source: Patient
All other systems: Reviewed and negative
Physical Exam
-
General: No Apparent Distress
Respiratory: Crackles
GI: Soft, Nontender and Nondistended
Skin: Warm
Neuro: Awake, Alert, Oriented and AO x 3
Psych: Calm
--- NOTE | 2025-09-22 11:47 | CM ---
Reviewed chart. Met with Mr. Sutton to review discharge plans. He states he is feeling better and maybe going for heart surgery this week. Asked to check on co-pay for Entresto po bid. Telephone call to his insurance to check on co-pay for
Entresto. He has a $8000.00 deductible that has not been met. So his co-pay for Entresto would be $592.88 for 90 day supply. He has commercial insurance. so he can use the $10.00 coupon. Placed the coupon in his red discharge folder. Reviewed
co-pay for Entresto with him. He is agreeable to the co-pay. He states prior to admission he resides with his spouse in a two story home with two steps to enter. He states his main suite is on the first floor. He states prior to admission he
was independent with ambulation and adls. He states he does not have any DME in the home. He states he has never needed [facility]. He states he has a prescription plan and uses [facility]. Will need to see his current functional level to see
if he will have any skilled care needs. Medical work-up in progress. The discharge plan is to return home with his sppouse when medically stable.
--- NOTE | 2025-09-22 12:04 | CON.PUL ---
Consultation
Consultation Request
Date/Time Consultation Requested: 09/22/2025
Date/Time Consultation Performed: 09/22/2025
Requesting Provider: Dr. Elizabeth
Performing Provider: Dr. Matt Menjivar
Reason for Consultation: Pneumonia/hypoxemic respiratory failure
Medical History
-
History of Present Illness:
60-year-old woman with past medical history significant for coronary artery disease with PCI in 2008, concern for atrial fibrillation, hyperlipidemia, hypertension, type 2 diabetes, seizure disorder, minimal bronchiectasis, history of CVA who came
with sudden onset epigastric discomfort after times getting meal.
Symptoms persisted with coughing and minimal sputum production. No reports of fevers or chills.
Denies hemoptysis.
Patient traveled to [facility] about 2 weeks ago.
He was found to have elevated troponins. EKG changes. CT of the chest with bilateral ground glass opacities asymmetric pattern possible pneumonia.
Found to be mildly hypoxemic. Subsequently underwent left and right heart catheterization 09/19/2025 that showed multivessel coronary artery disease. Severe in-stent stenosis. Elevated right and left sided filling pressures with normal cardiac
output.
Patient being treated for pneumonia with antibiotics.
Evaluated by CT surgery who was deemed candidate for revascularization. Plan for later this week.
Past Medical History
Past Medical History: Other (See assessment and plan)
Social History
Tobacco: Non-smoker
Alcohol: Occasional
Drug: None
Family History
Family History: Reviewed & Not Pertinent
Allergies / Home Medications
Allergies
Allergy/AdvReac Type Severity Reaction Status Date / Time
No Known Allergies Allergy Verified 09/19/25 09:35
Home Medications
�Medication �Instructions �Recorded �Confirmed �Last Taken �Type
calcium carbonate 500 mg PO DAILY Supplement 10/31/23 09/19/25 09/17/25 08:00 History
cholecalciferol (vitamin D3) 25 25 mcg PO DAILY Supplement 10/31/23 09/19/25 09/17/25 08:00 History
mcg (1,000 unit) tablet (Vitamin
D3)
cyanocobalamin (vitamin B-12) 1,000 mcg PO DAILY Supplement 10/31/23 09/19/25 09/17/25 08:00 History
1,000 mcg tablet
insulin glargine 100 unit/mL 24 unit SC HS Diabetes 10/31/23 09/19/25 09/17/25 22:00 History
subcutaneous solution (Lantus
U-100 Insulin)
metformin 1,000 mg tablet 1,000 mg PO QPM Diabetes 10/31/23 09/19/25 09/17/25 22:00 History
therapeutic multivitamin 1 tab PO DAILY Supplement 10/31/23 09/19/25 09/17/25 08:00 History
atorvastatin 80 mg tablet (Lipitor) 40 mg PO HS High Cholesterol 11/01/23 09/19/25 09/17/25 21:00 History
aspirin 81 mg tablet 81 mg PO DAILY 11/17/23 09/19/25 09/18/25 08:00 History
coQ10 (ubiquinol) 100 mg capsule 100 mg PO DAILY Supplement 09/19/25 09/19/25 09/17/25 08:00 History
ezetimibe 10 mg tablet (Zetia) 10 mg PO QPM High Cholesterol 09/19/25 09/19/25 09/17/25 21:00 History
carvedilol 12.5 mg tablet (Coreg) 12.5 mg PO 1XD 09/20/25 09/20/25 09/18/25 08:00 History
carvedilol 25 mg tablet (Coreg) 25 mg PO HS 09/20/25 09/20/25 09/17/25 22:00 History
levetiracetam 500 mg tablet 500 mg PO HS 09/20/25 09/20/25 09/17/25 22:00 History
(Keppra)
Review of Systems
-
History Source: Patient
All other systems: Negative unless noted
Vitals / Labs / Diagnostic Testing
Vital Signs
Temp Pulse Resp BP Pulse Ox
97.8 F 77 16 128/70 95
09/22/25 10:59 09/22/25 10:59 09/22/25 10:59 09/22/25 08:09 09/22/25 10:59
Lab Data
09/22/25 02:39
Laboratory Results
09/21/25 09/21/25 09/21/25
14:27 14:51 15:39
PT
INR
APTT Cancelled Cancelled Cancelled
09/21/25 09/21/25 09/22/25
17:10 19:30 02:38
PT
INR
APTT Cancelled 57.6 H 85.1 H
09/22/25
08:45
PT 15.6 H
INR 1.22
APTT 70.3 H
Microbiology
09/19/25 07:59 Blood/Venous Blood Culture - Preliminary
No Growth in 72 hours- Final report to follow
09/19/25 07:55 Blood/Venous Blood Culture - Preliminary
No Growth in 72 hours- Final report to follow
09/19/25 07:28 Sputum Respiratory Culture - Final
Usual Respiratory Lona
09/19/25 07:28 Sputum Gram Stain - Final
09/20/25 01:31 Urine Legionella Urinary Antigen - Final
Negative for Legionella pneumophila Serogroup 1 antigen.
A negative result does not rule out the possiblity of
Legionella infection due to other serogroups or species of
Legionella. Clinical correlation is recommended.
09/20/25 01:31 Urine Streptococcus pneumoniae Antigen (M - Final
Negative for Streptococcus pneumoniae antigen.
A negative result does not exclude infection with
Streptococcus pneumoniae. Clinical correlation is
recommended.
09/19/25 07:55 Nasal Swab Influenza Types A & B (MYKE) - Final
Negative for Influenza A & B, NAAT
Negative results must be combined with clinical observations
and patient history.
Nucleic Acid Amplification test (NAAT)performed on the
[employer] NOW platform.
Diagnostic Testing:
Physical Exam
-
HEENT: Normocephalic
Cardiovascular: S1/S2
Respiratory: Non-Labored Respirations
GI: Soft and Non Distended
Neurology: Awake, Oriented and AO x 3
Skin: Warm
General: Comfortable
Assessment
-
60-year-old man with past medical history noted admitted with epigastric pain and hypoxemia. Found to have abnormal CT chest with bilateral abnormalities, increased troponins. Subsequently underwent left heart catheterization that demonstrated
multivessel coronary artery disease. Currently undergoing evaluation for coronary artery bypass.
Acute respiratory insufficiency requiring 3 L nasal cannula.
Negative influenza/negative COVID
Negative strep urine antigen.
Non-ST elevation myocardial infarction ischemic cardiomyopathy with ejection fraction 24%..
Cardiac catheterization 09/19/2025: Multivessel coronary artery disease. Severe in-stent stenosis of mid LAD stent. Elevated right and left sided filling pressures. Normal cardiac output
Abnormal CT chest: Bilateral infiltrates right greater than left-pneumonia/suspected also pulmonary edema component based on bilateral pleural effusions and enlarged lymph nodes.
Suspect heart failure/possibly pneumonia component as well.
Leukocytosis/afebrile
Conditions present prior admission:
Type 2 diabetes
History of coronary artery disease with stenting 2008
Ischemic cardiomyopathy
Essential hypertension
Hyperlipidemia
History of CVA
History of seizure disorder
Minimal bronchiectasis post pneumonia
Assessment and plan:
Suspect hypoxemia multifactorial: CT chest with ground glass opacities bilaterally, bilateral pleural effusion, enlarged reactive mediastinal lymph nodes.
Rapid improvement from 09/19 to 09/22/2025 suggest pulmonary edema component. Cardiac cath also with increased left and right sided pressures.
Cannot rule out pneumonia component with leukocytosis. Patient is afebrile.
-
Not unreasonable to treat with antibiotic for community-acquired infection-he is clinically already improving.
Day 3 of antibiotics.
All microbiology negative-including COVID, influenza, strep and Legionella antigen in urine.
No producing sputum.
Will obtain procalcitonin-may help shorten course of antibiotics.
Patient does not appear toxic. Afebrile. Leukocytosis improving.
Only on 3 L supplemental oxygen continue to wean down to maintain pulse ox above 90%
Encourage incentive spirometry
-
Updated echocardiogram demonstrated decline in LVEF. Cardiac catheterization report noted.
Chest pain-free.
Peak troponin 22. Trending lower.
Continue cardiac management
Agree with some diuresis as able
Continue with goal-directed therapy
Heparin drip
CT surgery and cardiology following the patient-planning for surgery later this week.
-
Will follow.
Data reviewed:
Echo 09/19/2025:
1. Severely reduced left ventricular systolic function. LVEF 24%.
2. Multiple left ventricular segmental wall motion abnormalities are noted, as described below.
3. No significant valvular disease.
4. Compared to prior echocardiogram in December 2023, LVEF has decreased from 44%. There was previously septal and apical hypokinesis but there is now akinesis of these segments and other new regional wall motion abnormalities.
-
CT chest 09/22/2025:
There are perihilar prominent groundglass opacities which have slightly decreased from prior and may represent improving infection or edema. Increased small/moderate bilateral pleural effusions with adjacent atelectasis.
--- NOTE | 2025-09-22 14:05 | W.PN.UPDATE ---
Update Note
Progress Note Update
Procedure Type:�Isolated CABG
Perioperative Outcome Estimate %
Operative Mortality 4.37%
Morbidity & Mortality 21.6%
Stroke 4.47%
Renal Failure 5.25%
Reoperation 3.56%
Prolonged Ventilation 14%
Deep Sternal Wound Infection 0.371%
Long Hospital Stay (>14 days) 14.3%
Short Hospital Stay (<6 days)* 19%
Clinical Summary
Planned Surgery: Isolated CABG, Urgent, First cardiovascular surgery
Demographics: 60 year old, White, male, 85.7kg, 173cm, BMI: 28.6 kg/m�
Lab Values: Creatinine: 1.1 mg/dL, Hematocrit: 29.5%, WBC Count: 11.8 10�/�L, Platelet Count: 133638 cells/�L
PreOp Medications: Insulin diabetes control
Substance Abuse: Never smoker, Alcohol use: <=1 drink/week
Risk Factors / Comorbidities: Insulin-dependent Diabetes Mellitus, Hypertension, Family Hx of CAD
Pulmonary RF: Unknown CLD, Recent Pneumonia
Vascular RF: Cerebrovascular Disease: CVA > 30 days
Cardiac Status: Acute and chronic heart failure, NYHA Class III, Ejection Fraction = 20%
Coronary Artery Disease: 3 vessels diseased, Left Main Stenosis >=50%, Proximal LAD Stenosis >=70%, Non-ST Elevation NC, NC: 1 to 7 Days
Valve Disease: Trivial/Trace AR, Mild MR, Mild TR
Prev. Cardiac Interv: Previous PCI: Not at this facility > 6 hours
[2025-09-22 15:00] LABS: Glucose - Point of Care 202 mg/dl (70-99)
[2025-09-22] MEDS: DOBUTREX 250 IV (15:00)
[2025-09-22] MEDS: NOVOLOG FLEXPEN-HIGH RESISTANCE 4 UNITS SC ×2 (15:12→18:30)
[2025-09-22 17:08] LABS: APTT 82.1 Sec (23.4-35.0)
[2025-09-22 17:28] LABS: Blood Urea Nitrogen 36 mg/dl (9-20); Calcium 8.6 mg/dl (8.4-10.2); Carbon Dioxide 26 mmol/L (22-30); Chloride 100 mmol/L (98-107); Estimated Creatinine Clearance 76 ml/min; Glucose 204 mg/dl (70-99); Potassium 4.1 mmol/L (3.5-5.1); Sodium 132 mmol/L (135-145); eGFR > 60.00
[2025-09-22] MEDS: COREG 25 MG PO (18:30)
[2025-09-22 18:31] LABS: Glucose - Point of Care 203 mg/dl (70-99)
--- NOTE | 2025-09-22 18:37 | PTCARENOTE ---
Patient received from Milka RN; Assessment unchanged; Dobutamine and heparin gtts infusing - see nursing flowsheets for further information; Patient sitting in chair; Call george within reach
--- NOTE | 2025-09-22 19:04 | W.PN.UPDATE ---
Update Note
Progress Note Update
Patient was seen with Dr. Michelle this afternoon. Patient is scheduled for tentative surgery on September 24 and consent was obtained. For surgical optimization patient was started on low-dose dobutamine infusion and transferred to CVICU for
closer monitoring. He was diuresed with 40 mg of IV furosemide. A repeat transthoracic echocardiogram is ordered for tomorrow morning and patient will be n.p.o. past midnight for a right heart cath tomorrow with Dr. Willis.
[2025-09-22] MEDS: LIPITOR 80 MG PO (21:00)
[2025-09-22] MEDS: KEPPRA 500 MG PO (21:00)
--- NOTE | 2025-09-22 21:15 | PTCARENOTE ---
Assumed care of pt from dayshift RN. Walking rounds completed. Pt AAOx4. Appropriate. SR on the tele monitor. HR 70s. Audible heart tones. BP stable. B/L radial pulses palpable. Right DP pulse palpable. Left DP present via doppler. +1 L pedal edema
present. Pt on RA. POX 95%. Denies SOB. Lung sounds diminished at the bases. Deep breathing and IS encouraged. Abdomen round. +BS x4. Voiding w/o issue. PIV x2 intact, right upper arm midline intact. Heparin and dobutamine infusing as ordered. Pt
educated about NPO status at midnight for right heart cath 09/23. See worklist for full nursing assessment and interventions. Call george within reach.
[2025-09-22 23:46] LABS: APTT 90.7 Sec (23.4-35.0)
--- NOTE | 2025-09-22 23:47 | PTCARENOTE ---
No acute changes in assessment. VSS. PTT drawn and sent. Heparin and dobutamine infusing. Pt denies pain at this time. Call george within reach.
[2025-09-23] VITALS (8 sets, daily range): BP systolic 129–164; BP diastolic 69–87; BMI 28.4
--- NOTE | 2025-09-23 00:41 | W.PN.CT ---
Today's Communication / Plan
-
Plan:
-Cont. current medical management per primary team
-Ongoing medical workup/optimization
-Cont. Dobutamine gtt @ 2.5 mcg/kg/min, cont. heparin gtt
-Cont. Antibiotics per ID, currently on Ceftriaxone and Doxycycline for PNA
-For repeat echo and right heart cath today
-For possible CABG tomorrow 09/24/25
-Will cont. to closely monitor
Assessment / Plan
-
Assessment:
-Multivessel CAD S/P PCI with stent to LAD (has in-stent stenosis)
-NSTEMI
-PNA
-ICM (EF 24%, decreaed from 40%)
-T2 DM (hgb A1C 11.5)
-HTN with hypotension upon admission
-HLD
-CVA S/P ILR
-Seizure d/o
-S/P Left and right heart cath, 09/19/25
Discussed patient care with: Cardiology, Nursing, Respiratory Therapy, Pharmacy and Care Team
Subjective
-
Date of Service: September 23, 2025
No issues overnight. Denies CP/SOB
Objective Data
-
PT 15.6 Sec (11.4-14.6) H 09/22/25 08:45
INR 1.22 09/22/25 08:45
APTT 90.7 Sec (23.4-35.0) H 09/22/25 23:24
Vital Signs
Vital Signs
Temp Pulse Resp BP Pulse Ox
98.5 F 78 18 132/77 95
09/22/25 23:17 09/22/25 23:17 09/22/25 23:17 09/22/25 23:17 09/22/25 23:30
CT Intake/Output/Weight
09/22/25 09/22/25 09/23/25
06:59 18:59 06:59
Intake Total 658 / 898 198.4 / 275.2 76.8 / 275.2
Output Total 425 / 1075 800 / 1200 400 / 1200
Balance 233 / -177 -601.6 / -924.8 -323.2 / -924.8
SaO2: 95
Physical Exam
-
General: Awake, Oriented and AOx3
Cardiovascular: Regular rate & rhythm and No Murmurs
Respiratory: Clear
Extremities: Other (+trace edema)
Data Reviewed
-
Lab Results: Results Reviewed
Medications: Active Meds Reviewed
Chest X-Ray: Report Reviewed and Image Reviewed
ECG: Report Reviewed and Image Reviewed
--- NOTE | 2025-09-23 04:03 | PTCARENOTE ---
No acute changes in assessment. VSS. SR int he 70s on the tele monitor. Heparin and dobutamine infusing. Pt denies pain at this time. Labs drawn and sent. Pt NPO starting at midnight. Call george within reach.
[2025-09-23 04:17] LABS: Hematocrit 27.6 % (39.0-52.0); Hemoglobin 9.6 g/dL (13.0-18.0); Mean Corp Hgb Conc. 34.8 g/dL (33.0-37.0); Mean Corpuscular Volume 87.9 fL (80.0-94.0); Nucleated Red Blood Cells % 0 % (-); Platelet Count 203 10^3/uL (130-400); Red Cell Dist. Width 13.5 % (11.5-14.5)
[2025-09-23 04:23] LABS: APTT 101.4 Sec (23.4-35.0)
[2025-09-23 04:38] LABS: Blood Urea Nitrogen 30 mg/dl (9-20); Calcium 8.5 mg/dl (8.4-10.2); Carbon Dioxide 28 mmol/L (22-30); Chloride 105 mmol/L (98-107); Estimated Creatinine Clearance 84 ml/min; Glucose 144 mg/dl (70-99); Magnesium 1.9 mg/dl (1.6-2.3); Potassium 4.1 mmol/L (3.5-5.1); Sodium 135 mmol/L (135-145); eGFR > 60.00
[2025-09-23 04:52] LABS: Procalcitonin 0.05 ng/ml (0.0-0.25)
--- NOTE | 2025-09-23 07:00 | PTCARENOTE ---
Received pt from slot shift supervisor RN; Pt AAOX3 and resting comfortably in chair; NSR on monitor and VSS; Lungs diminished; positive bowel sounds; pt voiding yellow urine; palpable radial pulses and weak lower extremity DP; +1 left lower leg edema noted;
all cath sites C/D/I; see nursing documentation for further details.
[2025-09-23] MEDS: MUCINEX 600 MG PO ×2 (08:42→20:25)
[2025-09-23] MEDS: STERILE WATER FOR INJECTION 10 ML IV (08:42)
[2025-09-23] MEDS: ROCEPHIN 1000 MG IV (08:42)
[2025-09-23] MEDS: ASPIR LOW (ENTERIC COATED) 81 MG PO (08:42)
[2025-09-23] MEDS: LASIX 40 MG IV ×2 (08:42→15:39)
[2025-09-23] MEDS: VIBRAMYCIN 100 MG PO ×2 (08:42→20:25)
[2025-09-23] MEDS: NOVOLOG FLEXPEN-HIGH RESISTANCE SC ×2 (08:55→12:41)
[2025-09-23] MEDS: LANTUS SC (08:56)
--- NOTE | 2025-09-23 10:39 | W.PN.HOSP.TC ---
Today's Communication/Plan
-
cont Abx for total of [address] on 09/22/25 still showed residual ground glass opacities
rest of gmt mas per CTS
check stool for occult blood, check anemia w/u
hold preop Lantus, while NPO
Assessment / Plan
Assessment / Plan
60yo M with PMHx of CAD s/p PCI i@2008, LINQ implant with concern for Afib, HLD, HTN, DM, seizure d/o, bronchiectatic disease, Hx of CVA came with sudden onset of epigastric discomfort with cough and sputum, found NSTEMI and CAP, planned for CABG
A/P:
#NSTEMI
#Acute on chronic HFrEF 2/2 ischemic CM
ASA, statin, BB
Heparin drip, dobutamine drip
Serial troponin peaked at 22.6
Cardio consult: s/p cath on 09/19/25 found tipple vessel disease, Severe in-stent restenosis of the mid-LAD stent, pending CABG
CABG w/u
carotid US - b/l carotid stenosis R<50%, L 51-69%
CT Chest/Abd/pelvis resolving reactive lympadenopathy and ground glass opacities in lungs
palmar arch US reading showed appropriate anatomy
TSH WNL
LDL 107, on atorvastatin 40mg, reasonable to start outpatient PSCK9 inh
Echo: EF 24%, multiple LV segmental wall motion abnormalities, no significant valvular disease. Previous EF in december 2023 - 44%, also there are new wall motion abnormalities as addition to what was seen before
telemetry without clinically significant arrhythmia
LAsix as needed - [place] for volume monitoring as of 09/23/25
#Acute repiratory insufficiency with suspected b/l pneumonia
#Bronchiectatic disease
Ceftriaxone/Doxy - 7 days total
COVID-19 neg
Influenza PCR neg
Legionella and S.pneumonia urinary Ag neg
Sputum Cx NTD
Bcx NTD
Weaned off O2 as of 09/22/25
Bronchodilators
concern for PRAFUL - outpatient sleep study
#Anemia
check anemia w/u
serial CBC
check FOBT
#Elevated ddimer
acute phase reactant
US LE neg for DVT
CTA chest neg for pulmonary embolism
#DM type with unspecified complications and hyperglycemia
Adjust insulin
Hold oral hypoglycemics
Cont insulin basal, Add accuchecks, Insulin SS and DM diet
HgbA1c 11.5%. Most likely non-adherence to DM diet
#Essential HTN
#HLD
#Hx of CVA
#Seizure d/o
seizure precautions
cont home meds
DVT ppx heparin drip
Full code
I have spent at least 55min reviewing chart, test results, communication with consultants, bedsisde and providing direct patient care
Anticipated Discharge: > 48 hours
Subjective/Interval History
-
Date of Service: September 23, 2025
Objective Data
-
Labs:
Laboratory Results
09/22/25 09/23/25
23:24 03:59
WBC 9.5
Hgb 9.6 L
Hct 27.6 L
Plt Count 203
APTT 90.7 H 101.4 H
Sodium 135
Potassium 4.1
Chloride 105
Carbon Dioxide 28
BUN 30 H
Creatinine 0.9
Glucose 144 H
Calcium 8.5
Vital Signs:
Vital Signs
Temp Pulse Resp BP Pulse Ox
98.8 F 81 20 136/70 96
09/23/25 08:00 09/23/25 08:00 09/23/25 08:00 09/23/25 07:51 09/23/25 09:23
I&O
09/22/25 09/23/25 09/24/25
06:59 06:59 06:59
Intake Total 898 / 898 390.4 / 428.8 38.4 / 38.4
Output Total 1075 / 1075 1550 / 1550 250 / 250
Balance -177 / -177 -1159.6 / -1121.2 -211.6 / -211.6
Review of Systems
-
History Source: Patient
All other systems: Reviewed and negative
Physical Exam
-
General: No Apparent Distress
HEENT: Normocephalic
Respiratory: Clear to Auscultation
Cardiac: Regular Rhythm
Neuro: Awake, Alert, Oriented and AO x 3
Psych: Calm
[2025-09-23 11:42] LABS: Reticulocyte Count 2.9 % (0.4-2.8)
[2025-09-23 11:52] LABS: Glucose - Point of Care 167 mg/dl (70-99)
[2025-09-23 12:03] LABS: Iron 66 ug/dl (49-181); LDH 316 U/L (120-246)
[2025-09-23 12:12] LABS: Total Iron Binding Capacity 221 ug/dl (261-462)
--- NOTE | 2025-09-23 12:19 | CM ---
Chart reviewed. Patient OOB sitting in the chair waiting to go for his RHC. Reviewed preoperative and postoperative instructions and restrictions, along with showering guidelines. Patient is agreeable to a home visit by CT Transitional RN.
Patient is independent of ADLS, lives with his in a 2 STH, 1st floor set up, 2 DAVID, 0 DME. Plan is for the patient to return home with CT Transitional RN. CM to follow
[2025-09-23] MEDS: HEPARIN 25000 UNITS/250 ML IV (12:29)
[2025-09-23 12:33] LABS: Ferritin 177.0 ng/ml (17.9-464.0)
--- NOTE | 2025-09-23 12:56 | PTCARENOTE ---
Report given to assistant laboratory director RN; pt transported to assistant laboratory director via bed.
[2025-09-23 13:05] LABS: Folate 19.9 ng/ml (2.76-20); Vitamin B12 > 1000 pg/ml (239-931)
--- NOTE | 2025-09-23 13:49 | ITS.CL.PN ---
[facility] - Procedure Note
Procedure
Procedure Note:
CARDIAC CATHETERIZATION REPORT
Date of Procedure: 09/23/2025
Referring: Dr. Hunter Michelle MD
Indication: Preoperative hemodynamic optimization
PROCEDURE: right heart catheterization
ACCESS: 9 [place] right internal jugular vein
CATHETERS: 7 [place] (sewn at 55 cm)
MODERATE SEDATION: 25 minutes of moderate sedation was utilized. An independent director biomedical engineering was present to assist with and help manage the patient's level of consciousness and physiologic status.
HEMODYNAMIC DATA
SBP 158/81 (mean 113) mmHg
RA 12 mmHg
RV 47/6 (EDP 14) mmHg
PA 49/25 (mean 33) mmHg
PCWP 24 mmHg
SaO2 95.0%
SvO2 64.4%
Hb 10.6 g/dL
Weight 84.7 kg
CO/CI 5.62/2.83 L/min/m2
SVR 1437 dsc*-5
PVR 2.1 [place] units
CONCLUSION: Moderately elevated biventricular filling pressures, moderate predominantly postcapillary pulmonary hypertension, and normal cardiac output with mildly elevated SVR.
RECOMMENDATION: Maintain dobutamine pre-operatively. Mild diuresis to target PAD ~20.
Signed: Daniele Willis MD, PhD
--- NOTE | 2025-09-23 14:30 | PTCARENOTE ---
Pt returned from labor specialist via bed; NSR on monitor and VSS; RIJ [place] and [place] floated to 55, all lines leveled and zeroed; family at bedside and updated on plan for tomorrow.
--- NOTE | 2025-09-23 15:14 | W.PN.CD ---
Today's Communication / Plan
-
mild diuresis
maintain dobutamine
Impression / Plan
-
I/P: 60M with CAD (NSTEMI, 2010), ischemic cardiomyopathy (LVEF 40%), type 2 diabetes mellitus, dyslipidemia, and CVA (s/p ILR) who presented to the emergency department with a chief complaint of indigestion
Primary Nut Roaster Helper: formerly Dr. Luna
NSTEMI
- Troponin peak troponin 22
- Continue heparin gtt
- Echocardiogram below, repeat today with EF improved s/p diuresis and dobutamine
- severe 3v CAD pending high risk CABG 09/24, likely with 5.5 Impella post-procedure
ICM (EF 24%, now 30-35%)
-Furosemide to target PAD ~20 mmHg (matched wedge pressure on RHC)
-GDMT as tolerated
-Beta kristie: Carvedilol
-SGLT2i: Jardiance 10mg (held for OR)
-BENJI/ARB/ARNI: initiated when able post op
-MRA: initiated when able post op
-Diuretic: IV lasix to target PAD ~20 mmHg
-ICD: assess post revasc / GDMT
-Trend daily weight, I/O, & BMP with diuresis
CAD
-Continue beta-kristie, aspirin, and statin
-LDL 107, Hgba1c - 11.5 - both elevated; detention: goal LDL as low as reasonably achievable, at least <55, preferably <40, may need combination therapy (i.e. high intensity statin, ezetimibe, PCSK9i)
-TSH 2.3 - Normal.
Acute hypoxic respiratory insufficiency in the setting of pneumonia, resolved
-COVID-negative, influenza -ve, Legionella -ve. Strep pneumo -ve
-On abx per primary
Pneumonia
-With associated hypoxia
-Per primary
Type 2 diabetes mellitus with hyperglycemia, Glucose 416, HgbA1c pending, per primary service
Hypercholesterolemia, on atorvastatin, continue
CVA
ILR, no significant events, recently interrogated, followed in our device clinic
Echo 09/23/2025: SUMMARY
1. Moderately reduced left ventricular systolic function. Left ventricular ejection fraction is 30-35% by visual estimate.
2. Multiple left ventricular segmental wall motion abnormalities are noted, as described below.
3. Compared to prior echocardiogram on 09/19/2025, LVEF has increased from 24% to 30-35%.
Echo 09/19/2025: SUMMARY
1. Severely reduced left ventricular systolic function. LVEF 24%.
2. Multiple left ventricular segmental wall motion abnormalities are noted, as described below.
3. No significant valvular disease.
4. Compared to prior echocardiogram in December 2023, LVEF has decreased from 44%. There was previously septal and apical hypokinesis but there is now akinesis of these segments and other new regional wall motion abnormalities.
Subjective: No new cardiovascular complaints
Physical Exam
Vital Signs/Labs
Vital Signs
Temp Pulse Resp BP Pulse Ox
36.6 C 78 20 156/71 95
09/23/25 12:33 09/23/25 12:00 09/23/25 12:33 09/23/25 11:23 09/23/25 12:33
09/22/25 09/23/25 09/24/25
06:59 06:59 06:59
Actual Weight 85.7 kg 84.7 kg
09/23/25 03:59
09/23/25 03:59
PT 15.6 Sec (11.4-14.6) H 09/22/25 08:45
INR 1.22 09/22/25 08:45
APTT 101.4 Sec (23.4-35.0) H 09/23/25 03:59
Magnesium 1.9 mg/dl (1.6-2.3) 09/23/25 03:59
Triglycerides 71 mg/dl (10-149) 09/19/25 04:08
LDL Cholesterol, Calc 107 mg/dl 09/19/25 04:08
VLDL Cholesterol, Calc 14 mg/dl (0-30) 09/19/25 04:08
HDL Cholesterol 45 mg/dl 09/19/25 04:08
09/19/25
04:08
[id number] Pept 583
Physical Exam
Constitutional: Comfortable
Cardiovascular: Rhythm & rate is regular
Respiratory: Respiratory effort normal
Neuro/Psych: AO x 3
Data Reviewed
-
Date of Service: September 23, 2025
Medical Decision Making: Reviewed Test Results
Echo: Tracing Personally Visualized and interpreted
Labs: Labs Reviewed by me
[2025-09-23] MEDS: FERRLECIT 110 MG IV (15:39)
[2025-09-23 17:23] LABS: Glucose - Point of Care 303 mg/dl (70-99)
[2025-09-23] MEDS: LANTUS 0.1 UNITS SC (17:24)
[2025-09-23 17:57] LABS: Hematocrit 30.4 % (39.0-52.0); Hemoglobin 10.6 g/dL (13.0-18.0); Mean Corp Hgb Conc. 34.9 g/dL (33.0-37.0); Mean Corpuscular Volume 87.1 fL (80.0-94.0); Platelet Count 241 10^3/uL (130-400); Red Cell Dist. Width 13.5 % (11.5-14.5)
[2025-09-23] MEDS: NOVOLOG FLEXPEN-HIGH RESISTANCE 10 UNITS SC (18:04)
--- NOTE | 2025-09-23 18:29 | PTCARENOTE ---
NSR on monitor and VSS; assessment unchanged and family at bedside.
[2025-09-23 19:00] LABS: Blood Urea Nitrogen 24 mg/dl (9-20); Calcium 8.8 mg/dl (8.4-10.2); Carbon Dioxide 29 mmol/L (22-30); Chloride 100 mmol/L (98-107); Estimated Creatinine Clearance 84 ml/min; Glucose 291 mg/dl (70-99); Potassium 4.4 mmol/L (3.5-5.1); Sodium 133 mmol/L (135-145); eGFR > 60.00
[2025-09-23] MEDS: TYLENOL 650 MG PO ×2 (19:03→23:13)
[2025-09-23] MEDS: SENOKOT-S 1 TABLET PO (20:25)
--- NOTE | 2025-09-23 22:00 | PTCARENOTE ---
Addendum entered by Marilyn Brown RN 09/24/25 02:49:
bruising around left upper arm PIV. pt denies pain around site. flushes w/o issue. no hematoma.
Original Note:
Assumed care of pt from dayskunal RN. Walking rounds completed. Pt AAOx4. Appropriate. SR on the tele monitor. HR 70s. Audible heart tones. BP stable. CVP ~3-8. PAPs 20s/teens. CI 3.19. B/L radial pulses palpable. Right DP pulse palpable. Left DP
present via doppler. +1 B/L LE edema present. Pt on RA. POX 97%. Denies SOB. Lung sounds diminished at the bases. Deep breathing and IS encouraged. Abdomen round. +BS x4. Voiding w/o issue. PIV x2 intact, right upper arm midline intact. Right IJ
cordis w/ SWAN in place. All lines leveled, zeroed, and flushed. Heparin and dobutamine infusing as ordered. Pt educated about NPO status at midnight for right CABG 09/24. Pt clipped and CHG bath #1 complete. See worklist for full nursing assessment
and interventions. Call george within reach.
[2025-09-23] MEDS: KEPPRA 500 MG PO (23:13)
[2025-09-23] MEDS: LIPITOR 80 MG PO (23:13)
[2025-09-23 23:19] LABS: Glucose - Point of Care 270 mg/dl (70-99)
[2025-09-23] MEDS: NOVOLOG FLEXPEN-HIGH RESISTANCE 7 UNITS SC (23:19)
[2025-09-24] VITALS (7 sets, daily range): BP systolic 101–153; BP diastolic 61–82; PULSE 92; BMI 27.8
--- NOTE | 2025-09-24 00:34 | PTCARENOTE ---
No acute changes in assessment. VSS. Pt is 96% on RA. BPs slightly elevated, CT GARO aware, bring dobut down to 2. [place] intact - all lines leveled, zeroed, and flushed. Dobutamine and heparin infusing as ordered. Call george within reach.
[2025-09-24 04:24] LABS: Hematocrit 29.4 % (39.0-52.0); Hemoglobin 10.3 g/dL (13.0-18.0); Mean Corp Hgb Conc. 35.0 g/dL (33.0-37.0); Mean Corpuscular Volume 89.4 fL (80.0-94.0); Nucleated Red Blood Cells % 0 % (-); Platelet Count 218 10^3/uL (130-400); Red Cell Dist. Width 13.4 % (11.5-14.5)
[2025-09-24 04:45] LABS: ALT (SGPT) 41 U/L (0-50); AST (SGOT) 36 U/L (17-59); Albumin 3.0 g/dl (3.5-5.0); Alkaline Phosphatase 123 U/L (38-126); Blood Urea Nitrogen 24 mg/dl (9-20); Calcium 8.4 mg/dl (8.4-10.2); Carbon Dioxide 30 mmol/L (22-30); Chloride 103 mmol/L (98-107); Estimated Creatinine Clearance 95 ml/min; Glucose 172 mg/dl (70-99); Potassium 4.0 mmol/L (3.5-5.1); Sodium 135 mmol/L (135-145); Total Protein 5.5 g/dl (6.3-8.2); eGFR > 60.00
[2025-09-24 04:46] LABS: APTT 126.9 Sec (23.4-35.0)
--- NOTE | 2025-09-24 05:10 | PTCARENOTE ---
No acute changes in assessment. VSS. Labs sent. [facility] bath #2 complete. Weight obtained. Pt updated w/ plan for the morning. No c/o pain. Dix intact, leveled/zeroed/flushed. Dobut and heparin infusing as ordered. Voiding w/o issue. Call george within
reach.
[2025-09-24] MEDS: PROTONIX 40 MG PO (06:14)
[2025-09-24] MEDS: MAGNESIUM OXIDE 400 MG PO (06:15)
[2025-09-24] MEDS: BACTROBAN 2% OINTMENT 1 APPLIC NASAL ×2 (06:15→20:12)
[2025-09-24 06:21] LABS: Glucose - Point of Care 185 mg/dl (70-99)
[2025-09-24] MEDS: NOVOLOG FLEXPEN-HIGH RESISTANCE SC (06:22)
--- NOTE | 2025-09-24 06:28 | W.CVOR.SURPR ---
CVOR Surgeon Immed Pre Op
-
I have examined this patient prior to performance of the scheduled procedure.
The patient's condition is unchanged from the time of the dictated/written History and
Physical and the patient is able to undergo the scheduled procedure.
High Risk Low EF CABG
[2025-09-24 07:43] LABS: ACT+ - POC 120 Seconds (82-134)
[2025-09-24 07:49] LABS: Urine Character Clear (Clear)
[2025-09-24 08:00] LABS: Urine Red Blood Cell 0-2 /HPF (0-2); Urine Squamous Cell 0-2 /LPF (Few); Urine White Cell 0-2 /HPF (0-5)
--- NOTE | 2025-09-24 09:08 | W.PN.CD ---
Today's Communication / Plan
-
Routine post operative management.
Pain/chest tube management per CTS.
Titrate pressors/inotropes for MAP > 65 mmHg, CI > 1.8 L/min/m2.
Impression / Plan
-
Impression/Plan: 60M with CAD/NSTEMI (2009), IDDM2, dyslipidemia, and CVA (s/p ILR) admitted with PNA complicated by NSTEMI and worsening ischemic cardiomyopathy (LVEF 40% --> 25%) with subsequent unveiling of severe, multivessel CAD.
Primary Body Coverer: formerly Dr. Luna
#NSTEMI/CAD
-Acute on chronic, threat to life.
-Troponin peaked at 22.
-Severe 3v CAD on cath.
-High risk CABG today, likely with 5.5 Impella post-procedure.
-Anticipate routine post operative management.
-Titrate pressors/inotropes for MAP > 65 mmHg, CI > 1.8 L/min/m2, PAd of ~ 20 mmHg.
-Pain/chest tube management per CT surgery.
-Secondary prevention with aspirin, statin.
#ICM
-Chronic, worsened (LVEF 40% --> 24% --> 30-35% on dobutamine).
-Furosemide to target PAD ~20 mmHg (matched wedge pressure on RHC).
-GDMT as tolerated:
-Beta kristie: Carvedilol 25 mg BID on hold post op.
-SGLT2i: Empagliflozin 10 mg (held for OR).
-BENJI/ARB/ARNI: Patient will benefit from sacubitril-valsartan when hemodynamically stable.
-MRA: None currently. Consider spironolactone when stable post op.
-Diuretic: IV furosemide to target PAD ~20 mmHg.
-ICD: Assess post revasc / GDMT.
-Trend daily weight, I/O, & BMP with diuresis.
#Acute hypoxic respiratory insufficiency
-Acute, in the setting of pneumonia, resolved.
-COVID negative, influenza negative, Legionella negative, Strep pneumo Negative.
-Complete ABX course (ceftriaxone, doxycycline).
#IDDM2
-Chronic.
-HbA1c = 11.6%.
-The patient now has a class IA indication for GLP-1 analog medications at discharge.
-Start dapagliflozin 10 mg daily as above.
#Hypercholesterolemia
-Chronic, stable.
-Continue atorvastatin.
#History of CVA
-Chronic.
-Carotid duplex does show 50-69% LICA stenosis, <50% GALEN stenosis.
-Secondary prevention with aspirin.
#ILR
-No significant events, recently interrogated, followed in our device clinic.
Critical Care Time = 42 minutes.
Subjective/Interval History:
Weight down 1.8 kg from yesterday.
Patient post op.
Extubated to BiPAP.
DATA:
CT Chest, 09/19/2025:
IMPRESSION:
No evidence of central pulmonary embolism.
Widespread bilateral predominantly groundglass opacities, most prominent in the right upper and middle lobes, mild mediastinal/hilar lymphadenopathy and small bilateral pleural effusions. Findings overall are compatible with an
inflammatory/infectious process such as pneumonia/pneumonitis.
TTE, 09/19/2025:
SUMMARY
1. Severely reduced left ventricular systolic function. LVEF 24%.
2. Multiple left ventricular segmental wall motion abnormalities are noted, as described below.
3. No significant valvular disease.
4. Compared to prior echocardiogram in December 2023, LVEF has decreased from 44%. There was previously septal and apical hypokinesis but there is now akinesis of these segments and other new regional wall motion abnormalities.
Cardiac Catheterization, 09/19/2025:
CORONARY FINDINGS
Dominance: Right
Left Main Trunk (LMT): Large caliber vessel that gives rise to the LAD and LCx branches. The terminal left main has 60% stenosis involving the ostial LAD and LCx (Pleitez 1,1,1).
Left Anterior Descending Artery (LAD): Large caliber vessel that gives off several small caliber diagonal branches as it courses along the anterior inter-ventricular groove before wrapping around the cardiac apex. The LAD has diffuse disease. The
ostial LAD has 50% stenosis, thereafter the mid-vessel is stented jailing several small diagonals which has ostial 90% stenosis. The stented segment has severe in-stent restenosis up to 95%. There is then a 95% stenosis in mid-vessel distal to the
stent involving the ostium of another small caliber diagonal which has ostial 90% stenosis. The mid to distal LAD thereafter has diffuse 50-60% stenosis to the apical LAD.
Left Circumflex Artery (LCx): Large caliber vessel that gives off a large first major obtuse marginal (OM) and a small caliber OM2 as it courses along the atrio-ventricular (AV) groove. The ostial LCx has ostial 80% stenosis. The ostial OM1 has
80% stenosis. The OM2 is severely diffusely diseased.
Right Coronary Artery (RCA): Large caliber dominant vessel that gives rise to the posterior descending artery (RPDA) and postero-lateral ventricular (RPLV) branches distally. The RCA is diffusely diseased and calcified with mid-vessel 80%
stenosis, distal 70% stenosis involving the bifurcation of the RPDA with ostial 70% stenosis.
CONCLUSIONS
1. Severe triple vessel CAD involving the RCA, left main, LAD, LCx
2. Severe in-stent restenosis of the mid-LAD stent.
3. Elevated right and left sided filling pressures, normal cardiac output.
CT Chest/Abdomen/Pelvis, 09/22/2025:
IMPRESSION:
There are perihilar prominent groundglass opacities which have slightly decreased from prior and may represent improving infection or edema. Increased small/moderate bilateral pleural effusions with adjacent atelectasis.
Mild colonic stool burden.
TTE, 09/23/2025:
SUMMARY
1. Moderately reduced left ventricular systolic function. Left ventricular ejection fraction is 30-35% by visual estimate.
2. Multiple left ventricular segmental wall motion abnormalities are noted, as described below.
3. Compared to prior echocardiogram on 09/19/2025, LVEF has increased from 24% to 30-35%.
Physical Exam
Vital Signs/Labs
Vital Signs
Temp Pulse Resp BP Pulse Ox
36.4 C 75 18 151/81 97
09/24/25 04:16 09/24/25 06:20 09/24/25 06:20 09/24/25 04:19 09/24/25 04:16
09/22/25 09/23/25 09/24/25
11:59 11:59 11:59
Actual Weight 85.7 kg 84.7 kg 82.9 kg
09/24/25 04:08
09/24/25 04:08
PT 15.6 Sec (11.4-14.6) H 09/22/25 08:45
INR 1.22 09/22/25 08:45
APTT 126.9 Sec (23.4-35.0) H 09/24/25 04:08
Magnesium 1.9 mg/dl (1.6-2.3) 09/23/25 03:59
Triglycerides 71 mg/dl (10-149) 09/19/25 04:08
LDL Cholesterol, Calc 107 mg/dl 09/19/25 04:08
VLDL Cholesterol, Calc 14 mg/dl (0-30) 09/19/25 04:08
HDL Cholesterol 45 mg/dl 09/19/25 04:08
09/19/25
04:08
Cer-[id number]-Zrbibtxyhzb Pept 583
Physical Exam
Constitutional: No acute distress and Comfortable
EENT: Anicteric and Moist mucous membranes
Cardiovascular: Rhythm & rate is regular, Pedal edema is absent, JVD pressure is normal, S1S2 is normal and Murmur/rub/gallop absent
Respiratory: Respiratory effort normal, Lungs clear to auscul., Wheeze Absent, Crackles Absent and Rhonchi Absent
GI: Soft, Distention absent, Flat, Non tender and Normal bowel sounds
Neuro/Psych: Other (Asleep, easily arousable.)
Data Reviewed
-
Date of Service: September 24, 2025
Medical Decision Making: Reviewed Test Results, Independent Historian Assessment and Test Interpretation
EKG: Tracing Personally Visualized and interpreted and Report Reviewed by me
Echo: Report Reviewed by me
X-Ray/CT/US/MRI/NUC/PET: Image Personally Visualized and interpreted and Report Reviewed by me
Medical Tests (PFT, Pathology etc): Image Personally Visualized and interpreted and Report Reviewed by me
Labs: Labs Reviewed by me
Old Records: Reviewed
[2025-09-24 09:17] LABS: ACT+ - POC 469 Seconds (82-134)
[2025-09-24 09:29] LABS: ACT+ - POC 530 Seconds (82-134)
[2025-09-24 09:36] LABS: B.E. - POC -0.3 mmol/L; Glucose - POC 174 mg/dl (70-99); HCO3 - POC 24 mmol/L (21-28); Hematocrit - POC 24 % PCV (42-52); Hemodilution- POC No; Hemoglobin Calculated - POC 8.2; Ionized Calcium - POC 1.20 mmol/L (1.15-1.33); Lactate - POC 0.44 mmol/L (0.36-0.75); O2 Saturation %Calculated-POC 99.8 % (94-98); PCO2 - POC 38 mmHg (35-48); PO2 - POC 219 mmHg (83-108); POC Comment PRE; Potassium - POC 4.1 mmol/L (3.5-5.1); Sodium - POC 136 mmol/L (136-145); Specimen Type - POC Arterial; pH - POC 7.42 (7.35-7.45)
[2025-09-24 09:50] LABS: ACT+ - POC 587 Seconds (82-134)
[2025-09-24 10:08] LABS: B.E. - POC 2.0 mmol/L; Glucose - POC 180 mg/dl (70-99); HCO3 - POC 26 mmol/L (21-28); Hematocrit - POC 28 % PCV (42-52); Hemodilution- POC Yes; Hemoglobin Calculated - POC 9.5; Ionized Calcium - POC 1.00 mmol/L (1.15-1.33); Lactate - POC 1.18 mmol/L (0.36-0.75); O2 Saturation %Calculated-POC 100.0 % (94-98); PCO2 - POC 34 mmHg (35-48); PO2 - POC 438 mmHg (83-108); POC Comment CPB; Potassium - POC 4.9 mmol/L (3.5-5.1); Sodium - POC 138 mmol/L (136-145); Specimen Type - POC Arterial; pH - POC 7.48 (7.35-7.45)
[2025-09-24 10:18] LABS: ACT+ - POC 583 Seconds (82-134)
--- NOTE | 2025-09-24 10:24 | CM ---
Chart reviewed. Patient is in the OR today. Patient is independent of ADLS, lives with his in a 2 STH, 1st floor set up, 2 DAVID, 0 DME. Plan is for the patient to return home with CT Transitional RN.
[2025-09-24 10:35] LABS: B.E. - POC 1.4 mmol/L; Glucose - POC 166 mg/dl (70-99); HCO3 - POC 24 mmol/L (21-28); Hematocrit - POC 27 % PCV (42-52); Hemodilution- POC Yes; Hemoglobin Calculated - POC 9.2; Ionized Calcium - POC 1.00 mmol/L (1.15-1.33); Lactate - POC 1.25 mmol/L (0.36-0.75); O2 Saturation %Calculated-POC 100.0 % (94-98); PCO2 - POC 30 mmHg (35-48); PO2 - POC 323 mmHg (83-108); POC Comment CPB; Potassium - POC 4.3 mmol/L (3.5-5.1); Sodium - POC 138 mmol/L (136-145); Specimen Type - POC Arterial; pH - POC 7.51 (7.35-7.45)
[2025-09-24 10:43] LABS: ACT+ - POC 531 Seconds (82-134)
[2025-09-24 11:01] LABS: B.E. - POC 1.0 mmol/L; Glucose - POC 153 mg/dl (70-99); HCO3 - POC 25 mmol/L (21-28); Hematocrit - POC 28 % PCV (42-52); Hemodilution- POC Yes; Hemoglobin Calculated - POC 9.5; Ionized Calcium - POC 1.05 mmol/L (1.15-1.33); Lactate - POC 1.53 mmol/L (0.36-0.75); O2 Saturation %Calculated-POC 99.9 % (94-98); PCO2 - POC 39 mmHg (35-48); PO2 - POC 307 mmHg (83-108); POC Comment WARM; Potassium - POC 4.4 mmol/L (3.5-5.1); Sodium - POC 141 mmol/L (136-145); Specimen Type - POC Arterial; pH - POC 7.43 (7.35-7.45)
[2025-09-24 11:07] LABS: ACT+ - POC 153 Seconds (82-134)
--- NOTE | 2025-09-24 11:45 | W.PN.CT.SURG ---
CT Surgery Operative Note
-
CARDIAC SURGERY OPERATIVE REPORT
Preoperative Diagnosis: Multivessel Coronary Artery Disease with NSTEMI and acute on chronic heart failure with respiratory failure
Postoperative Diagnosis: Same
Procedure(s) Performed:
1. Standard Sternotomy with Aortic and Right Atrial Cannulation
2. Internal Mammary Artery Harvesting, Left
3. Coronary artery bypass grafting x 4 (In situ CUI to LAD, Ao to RSVG to OM seq to LPL, Ao to RSVG to RPDA)
4. Endoscopic vein harvesting of R and L lower extremity
5. Transesophageal echocardiography
6. Placement of Temporary Atrial Ventricular Pacing Wires
7. Left atrial appendage ligation, 35mm clip
8. Coronary endarterectomy, of the OM
Date of Surgery: 09/24/2025
Comorbidities:
1. Multivessel coronary disease with previous PCI
2. Ischemic cardiomyopathy with acute on chronic heart failure, EF of 25%
3. Respiratory failure secondary to pulm edema and underlying pneumonia
4. Type 2 diabetes
5. NSTEMI
6. Hyperlipidemia
7. Hypertension
Attending Surgeon: Hunter Michelle MD, MS
Assistants: Wenceslao Louis MD (PGY 2 Cardiac Surger Resident, sternotomy, pericardial well, first assisted with cannulation, decannulation, closure) & Jaqui Pérez PA-C (present and necessary to first dyer, retraction, suction, exposure, suture
management, and wound closure under my direction), Jaqueline Kyle PA-C (endo vein harvest)
Anesthesiology: Jimmy Batista MD and Andria Healy CRNA
Scrub and Circulating RNs: Mayra Adams, RN, Marnie Roman, EDGARD
Wet Cotton Feeder: Kellie Molina CCP
Anesthesia: GETA
EBL: per perfusion records
Products: 2 PRBC
CPB Time: 86 minutes
Aortic Cross Clamp Time: 75 minutes
Indication(s) for Procedures: This is a 60-year-old male presenting with an NSTEMI and acute ischemic myopathy with respiratory failure. He underwent left heart cath demonstrated significant in-stent restenosis as well as multivessel coronary
disease and a low left ventricular ejection fraction of 25%. Given his age and disease pattern, CT surgery was consulted for consideration of revascularization. He was optimized medically in the ICU with placement of a Becket Dur catheter. With
diuresis and inotropic support his EF did improve to approximate 35%. He was consented for coronary revascularization with possible MCS for bridge. I quoted him a mortality risk approximately 5 to 6% within 30 days.
Conduit(s) Quality:
CUI -excellent, skeletal
RSVG -excellent, uniform
Target(s) Quality:
RCA/PDA -smaller size target but overall decent quality, mean flow on assessment was 17 cc a minute with a PI of 2.9
OM -heavily calcified, coronary endarterectomy was performed here, this was done as part of a sequential graft to the LPL. Mean flow here with test was antegrade cardioplegia was approximately 40 cc a minute at a pressure 80 mmHg. The sequential
graft had a mean flow of 27 cc a minute with a PI of 2.8
LPL�decent sized target, mean flow here was approximately 30 to 40 cc a minute with a pressure of 80 mmHg. This was done as part of a sequential graft that had flows as listed above
LAD -good quality target, it was grafted beneath the stent and the overall luminal size was adequate however there was calcification along the wall. The CUI graft was grafted here with a mean flow of 16 cc a minute with a PI of 4.9
Findings: His left ventricular ejection fraction preoperatively under anesthesia was approximately 30% with significant regional wall motion abnormalities toward the apical region. Following surgery his EF did improve to approximate 35 to 40% while
on 5 of dobutamine. There were no new regional wall motion abnormalities. The left atrial appendage was verified to be free of any thrombus or debris preoperatively and found to be totally occlusive postoperatively. He had a trace to mild degree
of mitral valve insufficiency that appeared to be functional which remained the same. A coronary endarterectomy was performed of the OM graft it was a heavily calcified vessel, this was sent off for specimen for pathology. The CUI was harvested in
a skeletonized fashion. Following bypass grafting, test dose cardioplegia was given down each distal and confirmed patency and hemostasis. Each distal was probed both proximally and distally to confirm disease and patency, respectively. By the
inclusion the case, his EF was improved and he was not on significant vasoactive or inotropic support and so decision was made to not place any temporary MCS device. He did require 2 units of PRBCs before the case, he was on inotropic support at
the end of the case, and he was in his [place] sinus rhythm.
Description of Procedure: The patient was taken to the operating room. Their identity and procedure to be performed were verified and they were positioned supine on the operating table. Induction via general anesthesia with endotracheal intubation
was performed and central venous access and arterial monitoring were inserted. A preoperative transesophageal echocardiogram was performed to assess cardiac function and valvular function. The patient was then prepped and draped from chin to feet in
a sterile fashion. A preoperative time-out was performed with all members of the team present. A midline chest incision was performed along with median sternotomy. Simultaneous endoscopic access of the right and left lower extremity for saphenous
vein harvest was obtained along with administration of an initial 5,000 units of IV heparin. A RulTract sternal retractor was positioned to exposure the left internal mammary bed. The mammary was harvested and found to have good flow. A bulldog
clamp was applied to the distal end of the mammary after dividing it. It was wrapped in a papaverine soaked RayTec and replaced back into the left hemithorax. The RulTract was exchanged for a median sternal retractor. The innominate vein was
isolated. Full heparinization was given (a total of 55,000 units). We created a pericardial well. The aortic cannulation site was chosen where it was soft, pliable, and free of calcium. Cannulation was performed with an arterial cannula in the
ascending aorta and a triple-stage venous cannula through the right atrial appendage. The arterial cannula line had an appropriate bounce and correlating pressures with test dosing. Next, a root vent/antegrade cannula was inserted into the ascending
aorta. The ACT was confirmed to be over 400 and retrograde autologous priming was performed before commencing cardiopulmonary bypass. The pulmonary artery was away from the aorta to facilitate a clamp site. The aortic cross-clamp was
placed after decreasing the flow on the bypass and mean arterial pressure. A total of 1.2L initial dose of antegrade Del-Nido cardioplegia solution was given and planned for re-dosing every 75 minutes as necessary. There was rapid electro-mechanical
arrest of the heart at 300 cc of cardioplegia. The left ventricle was observed for distention on echocardiogram and manual palpation. Cold slush was placed into a sponge and topically on the RV while we systemically cooled to 34 degrees centigrade.
Once the heart was fully arrested is rotated medially and the left atrial appendage was ligated with a 35mm device (serial #[id number]).
I positioned the heart to expose the left posterolateral branch. A jackson blade was used to expose the coronary and perform the arteriotomy. Coronary Celestin scissors were used to enlarge the incision. The saphenous vein was trimmed and beveled to an
appropriate size. The distal anastomosis was performed using 7-0 prolene in an end-to-side fashion. Antegrade cardioplegia was administered into the graft. Appropriate hemostasis and flow were confirmed. The graft was measured for length to the
aorta and cut. A suitable site on the obtuse marginal was chosen. It was extremely calcified and apparent that there was a large calcium bar with a very small lumen. An endarterectomy was then performed here by gentle dissection bluntly
proximally and distally. A large piece of calcium was then extracted and sent for pathology. An [id number] anastomosis was created with a 7-0 prolene. Antegrade cardioplegia was administered into the graft with the distal sequential and occluded
using bulldog. Appropriate hemostasis and flow were confirmed. The graft was measured for length to the aorta and cut. Next a suitable target on the RPDA was then identified. This was a smaller target of the 4. The end of the vein graft was
beveled accordingly distal it was prepared in a similar fashion and end-to-side anastomosis was made with 7-0 Prolene. Test dosing of cardioplegia demonstrated excellent flow and hemostasis. The vein graft was then sized to the aorta and cut. A
suitable target on the mid/distal left anterior descending was identified. We dissected and prepared the distal target in a similar fashion. We retrieved the CUI from the chest and created a pericardial opening while being cognizant of the phrenic
nerve to facilitate the course of the mammary. The distal end of the mammary was prepped and beveled to size. We verified orientation and length of the PETER and found brisk flow. An end-to-side anastomosis was created with a 7-0 prolene. We
temporarily released the bulldog clamp on the mammary to inspect flow. Perfusion to the LAD territory was visualized and hemostasis was confirmed. The bull clamp was replaced on the mammary. The heart was filled and the root was distended with
antegrade cardioplegia to make final assessment of graft length and orientation. We created 2 aortotomies using a #11 blade then a 4.0mm aortic punch. The proximal anastomoses were created in an end-to-side fashion using 6-0 prolene. At the the same
time, we re-warmed to 36.5 degrees centigrade. The bulldog clamp was removed from the mammary. Temporary bipolar ventricular pacing wires were placed on the base of the right ventricle as well as temporary atrial pacing wires at the SVC right atrial
junction. The patient was placed in a Trendelenburg position and flows on bypass were lowered. The aortic cross clamp was removed and flows were slowly brought back up. All bypass grafts were inspected and were free from kinking or twisting. The
distal and proximal anastomoses appeared hemostatic. Once transesophageal echocardiography appeared satisfactory for de-airing, the flows were temporarily lowered for root vent removal. After verifying acceptable parameters, we initiated weaning
from cardiopulmonary bypass. Once we were off cardiopulmonary bypass, the venous cannula was clamped and removed. A test dose of protamine was administered and the patient was monitored for any adverse reaction before resuming protamine. Once half
of the protamine dose was delivered, pump suckers were turned off and the systolic blood pressure was lowered for aortic decannulation. The aortic cannula was removed and pursestrings were tied down. All cannulation sites were oversewn with a 4-0
prolene. The mammary bed was inspected and hemostasis was confirmed. Once the mediastinum was hemostatic, 19Fr Frank drain was placed in the left and right pleural cavity and two 24Fr Frank drains were placed within the pericardium. The sternum was
approximated with 4 #7 single and 3 #6 double stainless steel wires. Fascia was approximated with #1 vicryl suture. The subcutaneous, dermis and epidermis were closed in layers in a running fashion. The skin wound was cleansed and dressed.
All instrument, sponge, and needle counts were confirmed to be correct x 2 at the end of the operation. The patient was transferred to the cardiac intensive care unit in critical but stable condition.
I, Dr. Hunter Michelle, was present, scrubbed for, and performed all critical elements of this procedure.
Hunter Michelle MD, MS
Cardiothoracic Surgeon
[facility]
This operative dictation was created using the [employer] dictation system. Please excuse any grammatical, typographical, or 'sound alike' errors
[2025-09-24 12:47] LABS: Glucose - Point of Care 111 mg/dl (70-99)
[2025-09-24 13:02] LABS: B.E. 0.1 mmol/L; HCO3 24.7 mmol/L (21-28); O2 Saturation % 97.8 % (94-98); PCO2 39 mmHg (35-48); PO2 87 mmHg (83-108); Potassium 4.3 mMOL/L (3.5-5.1); Sodium 138 mMOL/L (136-145)
[2025-09-24 13:03] LABS: O2 Therapy vent
[2025-09-24 13:10] LABS: Hematocrit 31.2 % (39.0-52.0); Hemoglobin 11.1 g/dL (13.0-18.0); Platelet Count 124 10^3/uL (130-400)
--- NOTE | 2025-09-24 13:10 | PTCARENOTE ---
Received pt from [facility] at 1245; pt intubated and sedated; Pupils 2mm and reactive; NSR on monitor and VSS; Epicardial A/V sires in place and box turned off; Tana Peralesan floated to 45, Left A-line, Right upper Midline and PIV x1; all lines
leveled and zeroed; Dobutamine, Insulin; Precedex and Cardene infusing see flow sheet for details; + rub; Lungs diminished; ETT 8 23@ lip; Vent settings SIMV 40%/500/5/16; CT x4 to -20 wall suction no air leak or crepitus noted; hypoactive bowel
sounds; Thornton catheter draining clear yellow urine; palpable radial pulses and Doppler lower extremity DP present; no edema noted; all surgical sites C/D/I; see nursing documentation for further details.
CI 1.67
CO 3.31
SVR 1831
[2025-09-24 13:14] LABS: Blood Urea Nitrogen 17 mg/dl (9-20); Estimated Creatinine Clearance 95 ml/min; Glucose 107 mg/dl (70-99); INR 1.69; Magnesium 2.4 mg/dl (1.6-2.3); PT 19.6 Sec (11.4-14.6)
[2025-09-24 13:15] LABS: APTT 32.6 Sec (23.4-35.0)
[2025-09-24] MEDS: LR 250 ML IV ×3 (13:34→15:20)
[2025-09-24] MEDS: NSS 500 IV (13:35)
[2025-09-24] MEDS: DILAUDID 0.5 MG IV (13:41)
[2025-09-24] MEDS: ANCEF 10 IV ×2 (13:46)
--- NOTE | 2025-09-24 13:46 | W.PN.INTV ---
Today's Communication / Plan
Recommendations
Transferred to CVICU post CAB, intubated perioperatively with plan for SBT/weaning
Maintained on dobutamine/milrinone, PAC readings reviewed
Chest tubes in place, monitor output
PCT negative, can stop abx
Diuresis as indicated per team
Assessment
-
60-year-old man with past medical history noted admitted with epigastric pain and hypoxemia. Found to have abnormal CT chest with bilateral abnormalities, increased troponins. Subsequently underwent left heart catheterization that demonstrated
multivessel coronary artery disease. Currently undergoing evaluation for coronary artery bypass.
Acute respiratory insufficiency requiring 3 L nasal cannula.
Non-ST elevation myocardial infarction ischemic cardiomyopathy with ejection fraction 24%. s/p CAB x 4 (In situ CUI to LAD, Ao to RSVG to OM seq to LPL, Ao to RSVG to RPDA)/Coronary endarterectomy of OM 09/24/25
Multivessel coronary artery disease s/p Cardiac catheterization 09/19/2025 w/ Severe in-stent stenosis of mid LAD stent/Elevated right and left sided filling pressures/Normal cardiac output
Abnormal CT chest: Bilateral infiltrates right greater than left-pneumonia/suspected also pulmonary edema component based on bilateral pleural effusions and enlarged lymph nodes.
Suspect heart failure/possibly pneumonia component as well.
Leukocytosis/afebrile
Conditions present prior admission:
Type 2 diabetes
History of coronary artery disease with stenting 2008
Ischemic cardiomyopathy
Essential hypertension
Hyperlipidemia
History of CVA
History of seizure disorder
Minimal bronchiectasis post pneumonia
Plan:
Transferred to CVICU -- s/p CAB x 4 POD #0
Titrate off pressors per protoco--on dobutamine/milrinone gtt
ECHO reviewed with lowl function- EF 24%
PA catheter readings reviewed
Management of chest tubes per primary service
Suspect hypoxemia multifactorial: CT chest with ground glass opacities bilaterally, bilateral pleural effusion, enlarged reactive mediastinal lymph nodes.
Rapid improvement from 09/19 to 09/22/2025 suggest pulmonary edema component. Cardiac cath also with increased left and right sided pressures.
Cannot rule out pneumonia component with leukocytosis. Patient is afebrile.
Empiric treatment with antibiotic for community-acquired infection
All microbiology negative-including COVID, influenza, strep and Legionella antigen in urine.
Not producing sputum.
PCT neg, can stop abx
Intubated for procedure, SBT trial when patient able to spontaneously breath
Current vent settings reviewed at bedside
ABG(s) reviewed/adequate
CXR with no obvious opacities/infiltrates, low lung volumes, ETT in good position, lines/tubes in place
Extubate per protocol
Maintain supplement oxygen as needed
Updated echocardiogram demonstrated decline in LVEF. Cardiac catheterization report noted.
Chest pain-free. Peak troponin 22. Trending lower.
Continue cardiac management
Agree with some diuresis as able
Continue with goal-directed therapy
Heparin drip
Advance diet as tolerated following extubation
GI prophylaxis if indicated for mechanical ventilation >48 hours
Monitor critical I/O's
Thornton/chest tube output
Hb/platelets postoperatively stable
Trend CBC for now
Can transfuse if indicated for Hb <7, plt <50 in surgical patients
DVT prophylaxis including SCDs
Insulin protocol initiated and ongoing
Transition to SQ/off as indicated per team
We will follow management.
Data reviewed:
CXR 09/24/25: Lungs/Pleura: No focal airspace disease. No pleural effusions or pneumothorax. Mediastinum/Heart: Within post operative limits of normal. Multiple median sternotomy wires and mediastinal clips noted. Bones: No gross osseous
abnormality.
Echo 09/19/2025:
1. Severely reduced left ventricular systolic function. LVEF 24%.
2. Multiple left ventricular segmental wall motion abnormalities are noted, as described below.
3. No significant valvular disease.
4. Compared to prior echocardiogram in December 2023, LVEF has decreased from 44%. There was previously septal and apical hypokinesis but there is now akinesis of these segments and other new regional wall motion abnormalities.
-
CT chest 09/22/2025: There are perihilar prominent groundglass opacities which have slightly decreased from prior and may represent improving infection or edema. Increased small/moderate bilateral pleural effusions with adjacent atelectasis.
Critical Care time 51 mins -- The patient is admitted for acute critical illness for the treatment of vital organ failure and/or prevention of further life-threatening conditions. Total care includes time spent in review of history, physical exam,
medications, hemodynamic/ventilator parameters, laboratory data, imaging and discussion with house staff, pharmacy, respiratory therapy, reactor fueling supervisor, and nursing.
Subjective Dataa
Subjective Data
Date of Service:
Date of Service: September 24, 2025
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
Subjective:
Underwent cardiac surgery, transferred to CVICU 09/24
Intubated, on vent
On dobutamine gtt
Objective Data
Data Reviewed
Vital Signs / I&O / Oxygen:
Vital Signs
Temp Pulse Resp BP Pulse Ox
96.9 F L 81 16 151/81 97
09/24/25 13:03 09/24/25 12:50 09/24/25 13:03 09/24/25 04:19 09/24/25 13:03
Intake and Output
09/23/25 09/24/25 09/25/25
06:59 06:59 06:59
Intake Total 390.4 / 428.8 554.7 / 554.7 34.5 / 34.5
Output Total 1550 / 1550 3475 / 3475 310 / 310
Balance -1159.6 / -1121.2 -2920.3 / -2920.3 -275.5 / -275.5
SaO2 [SIMV] 97
SaO2 97
Nasal Cannula flow liters per 2
minute
Physical Exam
General: Other (intubated, sedated)
HEENT: Normocephalic, Anicteric and Moist Mucous Membranes
Cardiovascular: S1-S2 and Regular Rhythm
Respiratory: Clear, Non-Labored Respirations, ET Tube and Chest Tube
GI: Soft, Non Distended and Non Tender
Neurology: Non Verbal (sedated)
Skin: Warm, Dry and Good Color
Labs/Micro/Reports
Lab Data
09/24/25 12:45
Laboratory Results
09/24/25 09/24/25
04:08 12:45
PT 19.6 H
INR 1.69
APTT 126.9 H 32.6
pH 7.41
pCO2 39
pO2 87
HCO3 24.7
O2 Delivery Level vent
Microbiology
09/19/25 07:59 Blood/Venous Blood Culture - Final
No Growth - Final Report
09/19/25 07:55 Blood/Venous Blood Culture - Final
No Growth - Final Report
09/19/25 07:28 Sputum Respiratory Culture - Final
Usual Respiratory Lona
09/19/25 07:28 Sputum Gram Stain - Final
[2025-09-24] MEDS: STERILE WATER FOR INJECTION IV (13:47)
[2025-09-24] MEDS: MUCINEX PO (13:47)
[2025-09-24] MEDS: VIBRAMYCIN PO (13:47)
[2025-09-24] MEDS: ROCEPHIN IV (13:47)
[2025-09-24] MEDS: NEURONTIN PO ×2 (13:47→17:14)
[2025-09-24] MEDS: TYLENOL PO (13:48)
[2025-09-24] MEDS: THERAGRAN PO (13:48)
[2025-09-24] MEDS: NOVOLOG FLEXPEN SC ×3 (13:48→17:19)
[2025-09-24 13:57] LABS: Glucose - Point of Care 127 mg/dl (70-99)
[2025-09-24 14:59] LABS: Glucose - Point of Care 109 mg/dl (70-99)
[2025-09-24] MEDS: SENOKOT-S PO (15:23)
[2025-09-24] MEDS: ASPIR LOW (ENTERIC COATED) PO (15:23)
[2025-09-24] MEDS: LASIX IV (15:23)
[2025-09-24] MEDS: ALBUMIN 5% 250 IV (15:31)
--- NOTE | 2025-09-24 15:41 | PTCARENOTE ---
Respiratory at bedside and Pt placed on CPAP.
[2025-09-24] MEDS: OFIRMEV 100 IV (15:52)
[2025-09-24 15:59] LABS: Glucose - Point of Care 97 mg/dl (70-99)
[2025-09-24] MEDS: REFRESH EYE DROPS (PF) 1 DROPS OPHTH (16:00)
[2025-09-24 16:16] LABS: B.E. - POC 1.2 mmol/L; Blood Urea Nitrogen - POC 15 mg/dl (3-120); Chloride - POC 106 mmol/L (96-111); Creatinine - POC 0.93 mg/dl (0.3-1.0); Glucose - POC 92 mg/dl (70-99); HCO3 - POC 26 mmol/L (21-28); Hematocrit - POC 29 % PCV (42-52); Hemodilution- POC Yes; Hemoglobin Calculated - POC 10.0; Ionized Calcium - POC 1.17 mmol/L (1.15-1.33); Lactate - POC 1.01 mmol/L (0.36-0.75); O2 Saturation %Calculated-POC 95.0 % (94-98); PCO2 - POC 40 mmHg (35-48); PO2 - POC 74 mmHg (83-108); Potassium - POC 4.2 mmol/L (3.5-5.1); Sodium - POC 141 mmol/L (136-145); Specimen Type - POC Arterial; pH - POC 7.42 (7.35-7.45)
--- NOTE | 2025-09-24 16:22 | PTCARENOTE ---
CTNP in room and EPOC resulted; respiratory at bedside and pt extubated; pt placed on CPAP machine.
[2025-09-24 16:27] LABS: Hematocrit 29.2 % (39.0-52.0); Hemoglobin 10.4 g/dL (13.0-18.0); Platelet Count 146 10^3/uL (130-400)
[2025-09-24 16:56] LABS: Glucose - Point of Care 108 mg/dl (70-99)
[2025-09-24] MEDS: PACERONE PO (17:14)
[2025-09-24] MEDS: FLEXBUMIN 100 IV (18:09)
[2025-09-24] MEDS: ANCEF 5 IV (18:10)
[2025-09-24] MEDS: ZETIA PO (18:10)
[2025-09-24] MEDS: LOW STRENGTH ASPIRIN 81 MG PO (18:10)
[2025-09-24 18:11] LABS: Glucose - Point of Care 97 mg/dl (70-99)
[2025-09-24] MEDS: ZOFRAN 4 MG IV (18:42)
[2025-09-24] MEDS: ROXICODONE 5 MG PO ×2 (18:42→22:50)
[2025-09-24 19:59] LABS: Glucose - Point of Care 99 mg/dl (70-99)
[2025-09-24] MEDS: VIBRAMYCIN 100 MG PO (20:12)
[2025-09-24] MEDS: SENOKOT 8.6 MG PO (20:12)
[2025-09-24] MEDS: MUCINEX 600 MG PO (20:12)
--- NOTE | 2025-09-24 20:28 | PTCARENOTE ---
Received pt from day shift RN at 1900. Pt Aox4, pupils 3, equal, reactive, L eye weeping and pt reports some pain/burning, some relief w/warm compress and refresh eye drops, CT BELL VALET aware. Midsternal incisional pain 1/10 post PO Pau. Pt able to move
all extremities. NSR HR 80-90s, Rub present, BP 90-100/50-60, maintaining goal SBP 90-110, PA 20s/10s, CVP 8-10. Palpable radial pulses, doppler pedals, +1 edema BUE and BLE, AV wires, received w/box off. Lung sounds clr, dim CT L/R plural, ant/pos
med, -20 wall suction, no airleak or crepitus. Hypoactive bowel sounds, damon draining clr, yellow urine. MS [employer], CDI, BLE graft sites, nayely bandages on. RIJ cordis w/swan at 45, midline, PIV x1. Cardene, dobut, insulin gtt infusing. See flowsheet
for further documentation.
[2025-09-24 22:05] LABS: Glucose - Point of Care 103 mg/dl (70-99)
[2025-09-24] MEDS: LIPITOR 80 MG PO (22:06)
[2025-09-24] MEDS: TYLENOL 975 MG PO (22:06)
[2025-09-24] MEDS: KEPPRA 500 MG PO (22:06)
[2025-09-24] MEDS: NEURONTIN 100 MG PO (22:06)
[2025-09-24] MEDS: PACERONE 200 MG PO (22:07)
[2025-09-24] MEDS: TOBRADEX EYE DROPS 1 DROP OPHTH (22:18)
--- NOTE | 2025-09-24 23:51 | PTCARENOTE ---
Pt reassessment unchanged, NSR HR 90s. Augustinene paused briefly for sys<90, now back on. Po Pau given for incisional pain. see flowsheet for further documentation.
[2025-09-25] VITALS (28 sets, daily range): BP systolic 76–115; BP diastolic 54–69; PULSE 90; O2SAT 95–98; BMI 28.3
[2025-09-25 00:09] LABS: Glucose - Point of Care 78 mg/dl (70-99)
[2025-09-25 01:04] LABS: Glucose - Point of Care 99 mg/dl (70-99)
[2025-09-25] MEDS: FLEXBUMIN 100 IV ×2 (01:07→08:30)
[2025-09-25 02:06] LABS: Glucose - Point of Care 95 mg/dl (70-99)
[2025-09-25] MEDS: ANCEF 5 IV ×2 (02:16→10:55)
[2025-09-25] MEDS: TOBRADEX EYE DROPS 1 DROP OPHTH ×5 (02:19→17:26)
[2025-09-25 03:13] LABS: Glucose - Point of Care 95 mg/dl (70-99)
[2025-09-25 03:46] LABS: Hematocrit 25.4 % (39.0-52.0); Hemoglobin 8.9 g/dL (13.0-18.0); Mean Corp Hgb Conc. 35.0 g/dL (33.0-37.0); Mean Corpuscular Volume 88.5 fL (80.0-94.0); Platelet Count 149 10^3/uL (130-400); Red Cell Dist. Width 13.8 % (11.5-14.5)
--- NOTE | 2025-09-25 03:46 | PTCARENOTE ---
Pt reassessment unchanged, SR HR 90s, cardene weaned off, O2 weaned down to 2L NC to maintain sp02>92%. CHG bath and EKG complete. Labs sent.
[2025-09-25] MEDS: ROXICODONE 5 MG PO ×3 (04:02→22:53)
[2025-09-25 04:07] LABS: Glucose - Point of Care 89 mg/dl (70-99)
[2025-09-25 04:09] LABS: Blood Urea Nitrogen 18 mg/dl (9-20); Calcium 8.5 mg/dl (8.4-10.2); Carbon Dioxide 26 mmol/L (22-30); Chloride 109 mmol/L (98-107); Estimated Creatinine Clearance 84 ml/min; Glucose 81 mg/dl (70-99); Magnesium 2.0 mg/dl (1.6-2.3); Potassium 4.8 mmol/L (3.5-5.1); Sodium 138 mmol/L (135-145); eGFR > 60.00
--- NOTE | 2025-09-25 04:43 | W.PN.CT ---
Today's Communication / Plan
-
-pod #1
-c/o L eye pain postop, feels like a sand grain. No redness, PEERLA b/l. Vision intact b/l- possible abrasion, treated with Tobradex and artificial tears
-sbp 90-[address] Michelle. Liberate sbp to 90-130
-CI 2.66, CO 5.29. Drips: Dobut 2.5, Insulin
-CT outputs: 2 meds 75/225, 2 pleur 95/205 in 12 /24 hrs
-maintain swan while on Dobut
-hold BB while on Dobut. Eventually, restart Coreg
-continue insulin
-current meds (Lipitor, Zetia, ASA, Plavix, Amio, Rocephin and Doxycycline until 09/26, Feosol, Protonix, Keppra)
-Echo on 09/26 (ordered)
-encourage IS, OOB
Assessment / Plan
-
-S/p Coronary artery bypass grafting x 4 (In situ CUI to LAD, Ao to RSVG to OM seq to LPL, Ao to RSVG to RPDA); Coronary endarterectomy of the OM; Left atrial appendage ligation, 35mm clip by Dr. Michelle on 09/24/25, pod #1
-Intraop [place]: LVEF preop under anesthesia was approximately 30% with significant regional wall motion abnormalities toward the apical region. Following surgery, his EF did improve to approximate 35 to 40% while on 5 of dobutamine. There were no
new regional wall motion abnormalities. The left atrial appendage was verified to be free of any thrombus or debris preoperatively and found to be totally occlusive postoperatively. He had a trace to mild degree of mitral valve insufficiency that
appeared to be functional which remained the same.
-Multivessel CAD S/P PCI with stent to LAD (has in-stent stenosis)
-NSTEMI
-Acute on chronic systolic heart failure
-Respiratory failure secondary to pulmonary edema and underlying pneumonia
-PNA
-ICM (EF 24%, decreased from 40%)
-T2 DM (hgb A1C 11.5)
-HTN with hypotension upon admission
-HLD
-CVA S/P ILR
-Seizure d/o
-S/P Left and right heart cath, 09/19/25
-Acute postop blood loss anemia - s/p 2 pRBCs
-Acute postop thrombocytopenia
-Acute postop atelectasis
-Acute postop suspected pericarditis, + rub
-Acute postop hypovolemia with subsequent hypervolemia
Discussed patient care with: Nursing and Care Team
Subjective
-
Date of Service: September 24, 2025
Objective Data
-
Lab Results
09/24/25 16:14
09/24/25 12:45
PT 19.6 Sec (11.4-14.6) H 09/24/25 12:45
INR 1.69 09/24/25 12:45
APTT 32.6 Sec (23.4-35.0) 09/24/25 12:45
Vital Signs
Vital Signs
Temp Pulse Resp BP Pulse Ox
98 F 97 22 105/65 97
09/24/25 22:00 09/24/25 22:00 09/24/25 22:00 09/24/25 22:00 09/24/25 22:00
CT Intake/Output/Weight
09/24/25 09/24/25 09/25/25
06:59 18:59 06:59
Intake Total 516.3 / 554.7 1286.2 / 1456.8 170.6 / 1456.8
Output Total 1400 / 3475 1150 / 1380 230 / 1380
Balance -883.7 / -2920.3 136.2 / 76.8 -59.4 / 76.8
SaO2: 97
Physical Exam
-
General: Awake and AOx3
Cardiovascular: Regular rate & rhythm, No Murmurs and Rub
Sternum: Stable
Incision: Clean, Dry and Intact
Extremities: Edema +1 (DPs by Doppler b/l)
Abdomen: soft, nontender, nondistended, + decreased bowel sounds
Data Reviewed
-
Lab Results: Results Reviewed
Medications: Active Meds Reviewed
Chest X-Ray: Report Reviewed and Image Reviewed
ECG: Report Reviewed and Image Reviewed
[2025-09-25] MEDS: TYLENOL 975 MG PO ×3 (05:59→22:54)
[2025-09-25 06:08] LABS: Glucose - Point of Care 87 mg/dl (70-99)
--- NOTE | 2025-09-25 08:06 | PN.DE.MGMTRT ---
Insulin Management
- -
09/25/2025 Diabetes Management Consult
Patient admitted 09/19 with breathing problem - acute on chronic HF and pneumonia. Diabetes Management consult 09/25. PMH [place] with decreased ejection fraction 2008, seizure disorder, HLD, HTN, CVA, diabetes. On admission patient had L heart cath -
severe triple vessel CAD. 09/23 R heart cath. Prior to admission was taking lantus 24 units @ HS with metformin 1000 mg BID. A1C on admission 11.5%, cr .9, eGFR > 60 today.
POD 1 s/p CABG x 4. Patient is awake alert and oriented able to discuss diabetes care. States he has had diabetes ~ 30 years. Had insurance issues in the last year so obtaining medications and seeing providers was not possible. In the past he has
taken lantus at hs with ac novolog and Jardiance and metformin. He states he has Jardiance at home. States in the past he has seen Dr. Martinez and has an appointment set up for 10/20.
Patient currently receiving critical care glycemic protocol insulin infusion @ .3 to 1.3 units of insulin per hour. Will continue insulin infusion and assess in AM for readiness to transition to basal bolus regimen with bakari.
Discussed with nurse.
Will follow.
Diabetes History
- -
Type of Diabetes: 2 requiring insulin
Pre-Admission Diabetes Regimen
09/24/25 09/25/25
12:45 03:18
Creatinine 0.8 0.9
Lab Results
Hemoglobin A1c Cancelled 09/19/25 07:55
Insulin Pump Settings
IP Diabetes Regimen
09/24/25 09/24/25 09/24/25
12:44 12:45 13:56
Glucose 107 H
POC Glucose 111 H 127 H
09/24/25 09/24/25 09/24/25
14:58 15:58 16:55
Glucose
POC Glucose 109 H 97 108 H
09/24/25 09/24/25 09/24/25
18:10 19:58 22:05
Glucose
POC Glucose 97 99 103 H
09/25/25 09/25/25 09/25/25
00:08 01:03 02:05
Glucose
POC Glucose 78 99 95
09/25/25 09/25/25 09/25/25
03:12 03:18 04:05
Glucose 81
POC Glucose 95 89
09/25/25
06:08
Glucose
POC Glucose 87
Patient Education
--- NOTE | 2025-09-25 08:08 | W.PN.CD ---
Today's Communication / Plan
-
wean dobutamine
euvolemic, no diuresis needed today, consider tomorrow pending weight trend/PAD
OOB/IS
Impression / Plan
-
Impression/Plan: 60M with CAD/NSTEMI (2009), IDDM2, dyslipidemia, and CVA (s/p ILR) admitted with PNA complicated by NSTEMI and worsening ischemic cardiomyopathy (LVEF 40% --> 25%) with subsequent unveiling of severe, multivessel CAD, now s/p CABGx4
with Dr. Michelle 09/24/2025
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
#NSTEMI/CAD s/p CABGx4 (CUI-LAD, SVG-OM-LPL, SVG-RPDA) and left atrial appendage ligation on 09/24/[address] Michelle
-given reduced EF, there was concern Impella 5.5 would be needed post-op but patient from bypass without difficulty
-Now off pressors
-Dobutamine at 2.5 with latest hemos RA 12, PA 28/17, CI 2.66, can likely wean dobutamine today
-Pain/chest tube management per CT surgery.
-Secondary prevention with aspirin, statin, ezetimibe
-amio ppx per CTS
#ICM
-Chronic, worsened (LVEF 40% --> 24% --> 30-35% on dobutamine).
-Furosemide to target PAD ~20 mmHg, examines euvolemic and weight near pre-op level, PAD <20, no need for diuresis today
-GDMT as tolerated:
-Beta kristie: Carvedilol 25 mg BID on hold post op, resume at lower dose once off dobutamine
-SGLT2i: Empagliflozin 10 mg, can restart
-BENJI/ARB/ARNI: Patient will benefit from sacubitril-valsartan when hemodynamically stable.
-MRA: None currently. Consider spironolactone when stable post op.
-Diuretic: IV furosemide to target PAD ~20 mmHg.
-ICD: Assess post revasc / GDMT.
-Trend daily weight, I/O, & BMP with diuresis.
#Acute hypoxic respiratory insufficiency
-Acute, in the setting of pneumonia, resolved.
-COVID negative, influenza negative, Legionella negative, Strep pneumo Negative.
-Complete ABX course (ceftriaxone, doxycycline).
#IDDM2
-Chronic.
-HbA1c = 11.6%.
-The patient now has a class IA indication for GLP-1 analog medications at discharge.
-Start dapagliflozin 10 mg daily as above.
#Hypercholesterolemia
-Chronic, stable.
-Continue atorvastatin.
#History of CVA
-Chronic.
-Carotid duplex does show 50-69% LICA stenosis, <50% GALEN stenosis.
-Secondary prevention with aspirin.
#ILR
-No significant events, recently interrogated, followed in our device clinic.
Critical Care Time = 42 minutes.
Subjective/Interval History:
Weight up 1.4 kg from yesterday. Consider gentle diuresis.
Doing well.
DATA:
CXR 09/25: Chest tubes in place. No pulmonary edema.
CT Chest, 09/19/2025:
IMPRESSION:
No evidence of central pulmonary embolism.
Widespread bilateral predominantly groundglass opacities, most prominent in the right upper and middle lobes, mild mediastinal/hilar lymphadenopathy and small bilateral pleural effusions. Findings overall are compatible with an
inflammatory/infectious process such as pneumonia/pneumonitis.
TTE, 09/19/2025:
SUMMARY
1. Severely reduced left ventricular systolic function. LVEF 24%.
2. Multiple left ventricular segmental wall motion abnormalities are noted, as described below.
3. No significant valvular disease.
4. Compared to prior echocardiogram in December 2023, LVEF has decreased from 44%. There was previously septal and apical hypokinesis but there is now akinesis of these segments and other new regional wall motion abnormalities.
Cardiac Catheterization, 09/19/2025:
CORONARY FINDINGS
Dominance: Right
Left Main Trunk (LMT): Large caliber vessel that gives rise to the LAD and LCx branches. The terminal left main has 60% stenosis involving the ostial LAD and LCx (Pleitez 1,1,1).
Left Anterior Descending Artery (LAD): Large caliber vessel that gives off several small caliber diagonal branches as it courses along the anterior inter-ventricular groove before wrapping around the cardiac apex. The LAD has diffuse disease. The
ostial LAD has 50% stenosis, thereafter the mid-vessel is stented jailing several small diagonals which has ostial 90% stenosis. The stented segment has severe in-stent restenosis up to 95%. There is then a 95% stenosis in mid-vessel distal to the
stent involving the ostium of another small caliber diagonal which has ostial 90% stenosis. The mid to distal LAD thereafter has diffuse 50-60% stenosis to the apical LAD.
Left Circumflex Artery (LCx): Large caliber vessel that gives off a large first major obtuse marginal (OM) and a small caliber OM2 as it courses along the atrio-ventricular (AV) groove. The ostial LCx has ostial 80% stenosis. The ostial OM1 has
80% stenosis. The OM2 is severely diffusely diseased.
Right Coronary Artery (RCA): Large caliber dominant vessel that gives rise to the posterior descending artery (RPDA) and postero-lateral ventricular (RPLV) branches distally. The RCA is diffusely diseased and calcified with mid-vessel 80%
stenosis, distal 70% stenosis involving the bifurcation of the RPDA with ostial 70% stenosis.
CONCLUSIONS
1. Severe triple vessel CAD involving the RCA, left main, LAD, LCx
2. Severe in-stent restenosis of the mid-LAD stent.
3. Elevated right and left sided filling pressures, normal cardiac output.
CT Chest/Abdomen/Pelvis, 09/22/2025:
IMPRESSION:
There are perihilar prominent groundglass opacities which have slightly decreased from prior and may represent improving infection or edema. Increased small/moderate bilateral pleural effusions with adjacent atelectasis.
Mild colonic stool burden.
TTE, 09/23/2025:
SUMMARY
1. Moderately reduced left ventricular systolic function. Left ventricular ejection fraction is 30-35% by visual estimate.
2. Multiple left ventricular segmental wall motion abnormalities are noted, as described below.
3. Compared to prior echocardiogram on 09/19/2025, LVEF has increased from 24% to 30-35%.
Physical Exam
Vital Signs/Labs
Vital Signs
Temp Pulse Resp BP Pulse Ox
37.0 C 86 20 80/55 96
09/25/25 07:00 09/25/25 07:30 09/25/25 07:30 09/25/25 06:43 09/25/25 07:30
09/24/25 09/25/25 09/26/25
06:59 06:59 06:59
Actual Weight 82.9 kg 84.3 kg
09/25/25 03:18
09/25/25 03:18
PT 19.6 Sec (11.4-14.6) H 09/24/25 12:45
INR 1.69 09/24/25 12:45
APTT 32.6 Sec (23.4-35.0) 09/24/25 12:45
Magnesium 2.0 mg/dl (1.6-2.3) 09/25/25 03:18
Triglycerides 71 mg/dl (10-149) 09/19/25 04:08
LDL Cholesterol, Calc 107 mg/dl 09/19/25 04:08
VLDL Cholesterol, Calc 14 mg/dl (0-30) 09/19/25 04:08
HDL Cholesterol 45 mg/dl 09/19/25 04:08
09/19/25
04:08
Vpt-L-Eguprkndsuo Pept 583
Physical Exam
Constitutional: Comfortable
Cardiovascular: Rhythm & rate is regular and Rub present
Respiratory: Respiratory effort normal
Neuro/Psych: AO x 3
Data Reviewed
-
Date of Service: September 25, 2025
Medical Decision Making: Reviewed Test Results
EKG: Tracing Personally Visualized and interpreted
X-Ray/CT/US/MRI/NUC/PET: Image Personally Visualized and interpreted
Labs: Labs Reviewed by me
[2025-09-25 08:10] LABS: Glucose - Point of Care 87 mg/dl (70-99)
[2025-09-25] MEDS: NOVOLOG FLEXPEN SC ×2 (08:21→13:06)
[2025-09-25] MEDS: LIDOCAINE 4% PATCH 1 PATCH TOPICAL (08:29)
[2025-09-25] MEDS: LOW STRENGTH ASPIRIN 81 MG PO (08:30)
[2025-09-25] MEDS: VITAMIN C 500 MG PO (08:31)
[2025-09-25] MEDS: PLAVIX 75 MG PO (08:31)
[2025-09-25] MEDS: FEOSOL 325 MG PO (08:31)
[2025-09-25] MEDS: VIBRAMYCIN 100 MG PO ×2 (08:31→23:00)
[2025-09-25] MEDS: MAGNESIUM OXIDE 400 MG PO ×2 (08:31→22:59)
[2025-09-25] MEDS: PACERONE 200 MG PO ×3 (08:31→23:00)
[2025-09-25] MEDS: MUCINEX 600 MG PO ×2 (08:31→22:59)
[2025-09-25] MEDS: PROTONIX 40 MG PO (08:31)
[2025-09-25] MEDS: NEURONTIN 100 MG PO ×3 (08:31→22:54)
[2025-09-25] MEDS: SENOKOT 8.6 MG PO (08:31)
[2025-09-25] MEDS: BACTROBAN 2% OINTMENT 1 APPLIC NASAL ×2 (08:32→22:59)
[2025-09-25] MEDS: ROCEPHIN 1000 MG IV (08:32)
[2025-09-25] MEDS: STERILE WATER FOR INJECTION 10 ML IV (08:32)
[2025-09-25] MEDS: THERAGRAN 1 TABLET PO (08:40)
--- NOTE | 2025-09-25 09:19 | PTCARENOTE ---
Patient received from survey technician RN; AAOx3, responds spontaneously to RN and follows commands; Patient complains of left peripheral vision 'fuzziness' and states it is his baseline from previous stroke; Anxious at times; VSS; NSR on monitor;
Friction rub present; Epicardial AV wires insulated; +1 B/L UE and LE edema; +2 radial pulses and DP pulses present by doppler; Shallow respirations; Occasional, productive cough with thick sputum; SpO2 95-100% on 2L NC; Lungs diminished at bases;
CTx4 connected to -20 cm wall suction and draining serosanguineous drainage - no air leak, tidaling, or crepitus noted; Hypoactive BS; Thornton catheter draining clear, yellow urine; Surgical sites intact; PIVx1 - #20 left forearm; Right midline; RIJ
Cordis with [place]-ness at 45 cm - all lines zeroed and level; Levo, dobutamine, and insulin infusing - see nursing flowsheets for further details; See nursing documentation for further information
CO: 4.80
CI: 2.41
SVR: 983
[2025-09-25 10:10] LABS: Glucose - Point of Care 112 mg/dl (70-99)
[2025-09-25] MEDS: NSS IV (11:19)
--- NOTE | 2025-09-25 11:42 | CM ---
Chart reviewed. Patient OOB sitting in the chair, ambulated the deluca, at bedside. Patient is independent of ADLS, lives with his in a 2 [address], 1st floor set up, 2 DAVID, 0 DME. 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 Plan is for the patient to
return home with CT Transitional RN. CM to follow
[2025-09-25 12:16] LABS: Glucose - Point of Care 117 mg/dl (70-99)
[2025-09-25] MEDS: FERRLECIT 110 MG IV (13:06)
--- NOTE | 2025-09-25 13:08 | W.PN.INTV ---
Today's Communication / Plan
Recommendations
Very pleasant man!
Doing well post extubation, no complaints
On low dose dobutamine, weaning down slowly
Chest tube management per team, PAC still remains for monitoring
Assessment
-
60-year-old man with past medical history noted admitted with epigastric pain and hypoxemia. Found to have abnormal CT chest with bilateral abnormalities, increased troponins. Subsequently underwent left heart catheterization that demonstrated
multivessel coronary artery disease. Currently undergoing evaluation for coronary artery bypass.
Acute respiratory insufficiency requiring 3 L nasal cannula.
Non-ST elevation myocardial infarction ischemic cardiomyopathy with ejection fraction 24%. s/p CAB x 4 (In situ CUI to LAD, Ao to RSVG to OM seq to LPL, Ao to RSVG to RPDA)/Coronary endarterectomy of OM 09/24/25
Multivessel coronary artery disease s/p Cardiac catheterization 09/19/2025 w/ Severe in-stent stenosis of mid LAD stent/Elevated right and left sided filling pressures/Normal cardiac output
Abnormal CT chest: Bilateral infiltrates right greater than left-pneumonia/suspected also pulmonary edema component based on bilateral pleural effusions and enlarged lymph nodes.
Suspect heart failure/possibly pneumonia component as well.
Leukocytosis/afebrile
Conditions present prior admission:
Type 2 diabetes
History of coronary artery disease with stenting 2008
Ischemic cardiomyopathy
Essential hypertension
Hyperlipidemia
History of CVA
History of seizure disorder
Minimal bronchiectasis post pneumonia
Plan:
Transferred to CVICU -- s/p CAB x 4 POD #1
Titrate off pressors per protocol--on dobutamine, weaning slowly down
ECHO reviewed with low function- EF 24%
PA catheter readings reviewed
Management of chest tubes per primary service
Suspect hypoxemia multifactorial: CT chest with ground glass opacities bilaterally, bilateral pleural effusion, enlarged reactive mediastinal lymph nodes.
Rapid improvement from 09/19 to 09/22/2025 suggest pulmonary edema component. Cardiac cath also with increased left and right sided pressures.
Cannot rule out pneumonia component with leukocytosis. Patient is afebrile.
Empiric treatment with antibiotic for community-acquired infection
All microbiology negative-including COVID, influenza, strep and Legionella antigen in urine.
Not producing sputum.
PCT neg, can stop abx
Intubated for procedure, extubated and doing well
ABG(s) reviewed/adequate
CXR with stable postop changes
Wean supplement oxygen as tolerated
Updated echocardiogram demonstrated decline in LVEF. Cardiac catheterization report noted.
Chest pain-free. Peak troponin 22. Trending lower.
Continue cardiac management
Agree with some diuresis as able
Continue with goal-directed therapy
Diet advancement
Aspiration precautions
GI prophylaxis if indicated
Monitor critical I/O's
Thornton/chest tube output
Hb/platelets postoperatively stable
Trend CBC for now
Can transfuse if indicated for Hb <7, plt <50 in surgical patients
DVT prophylaxis including SCDs
Insulin protocol initiated and ongoing
Transition to SQ/off as indicated per team
We will follow
Data reviewed:
CXR 09/24/25: Lungs/Pleura: No focal airspace disease. No pleural effusions or pneumothorax. Mediastinum/Heart: Within post operative limits of normal. Multiple median sternotomy wires and mediastinal clips noted. Bones: No gross osseous
abnormality.
Echo 09/19/2025:
1. Severely reduced left ventricular systolic function. LVEF 24%.
2. Multiple left ventricular segmental wall motion abnormalities are noted, as described below.
3. No significant valvular disease.
4. Compared to prior echocardiogram in December 2023, LVEF has decreased from 44%. There was previously septal and apical hypokinesis but there is now akinesis of these segments and other new regional wall motion abnormalities.
-
CT chest 09/22/2025: There are perihilar prominent groundglass opacities which have slightly decreased from prior and may represent improving infection or edema. Increased small/moderate bilateral pleural effusions with adjacent atelectasis.
Critical Care time 31 mins -- The patient is admitted for acute critical illness for the treatment of vital organ failure and/or prevention of further life-threatening conditions. Total care includes time spent in review of history, physical exam,
medications, hemodynamic/ventilator parameters, laboratory data, imaging and discussion with house staff, pharmacy, respiratory therapy, laundry machine mechanic, and nursing.
Subjective Dataa
Subjective Data
Date of Service:
Date of Service: September 25, 2025
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
Subjective:
Doing well post extubation, remains on low dose dobutamine
No new complaints
Objective Data
Data Reviewed
Vital Signs / I&O / Oxygen:
Vital Signs
Temp Pulse Resp BP Pulse Ox
99.4 F 91 24 106/60 96
09/25/25 13:00 09/25/25 13:02 09/25/25 13:02 09/25/25 13:02 09/25/25 13:00
Intake and Output
09/24/25 09/25/25 09/26/25
06:59 06:59 06:59
Intake Total 554.7 / 554.7 1821.4 / 1844.8 561.9 / 561.9
Output Total 3475 / 3475 1830 / 1895 465 / 465
Balance -2920.3 / -2920.3 -8.6 / -50.2 96.9 / 96.9
SaO2 [CPAP] 95
SaO2 [SIMV] 97
SaO2 96
Nasal Cannula flow liters per 1
minute
Physical Exam
General: Comfortable and Good Appetite
HEENT: Normocephalic, Anicteric and Moist Mucous Membranes
Cardiovascular: S1-S2 and Regular Rhythm
Respiratory: Clear, Non-Labored Respirations and Chest Tube
GI: Soft, Non Distended and Non Tender
Neurology: Awake, Alert, Oriented and No Motor Deficits
Skin: Warm, Dry and Good Color
Labs/Micro/Reports
Lab Data
09/25/25 03:18
09/25/25 03:18
Laboratory Results
09/24/25
12:45
PT 19.6 H
INR 1.69
APTT 32.6
Microbiology
09/19/25 07:59 Blood/Venous Blood Culture - Final
No Growth - Final Report
09/19/25 07:55 Blood/Venous Blood Culture - Final
No Growth - Final Report
--- NOTE | 2025-09-25 13:50 | PTCARENOTE ---
Dobutamine infusion weaned to 2 mcg/kg/min as per MD Michelle; Oxygen weaned to RA - SpO2 93-98%; Levophed infusion restarted briefly while patient's BP dropped while sitting up in chair for lunch - SBP 70's/40's and patient complaining of dizziness;
CVNP Muriel Nicole notified and Albumin 5% ordered; Patient's legs elevated and after about 20 minutes, BP recovered and levo infusion turned off; Patient now resting comfortably in chair
[2025-09-25] MEDS: ALBUMIN 5% 250 IV (14:12)
[2025-09-25 14:19] LABS: Glucose - Point of Care 124 mg/dl (70-99)
[2025-09-25] MEDS: NOVOLIN R INSULIN INFUSION 100 IV (14:19)
--- NOTE | 2025-09-25 15:14 | W.PN.ANS.POP ---
Anesthesia Post Operative
- Anesthesia Post Op Note
Vital Signs Stable-See Nursing Note: Yes (remains on dobutamine gtt)
Airway Patent: Yes
Adequate Pain Control: Yes
Change in Mental Status: No
Current Postoperative Nausea & Vomiting: No
Anesthesia Complications: No
General Anesthetic Recall: No
Unplanned Admission: No
Post Op Hydration Adequate: Yes
[2025-09-25 16:09] LABS: Glucose - Point of Care 205 mg/dl (70-99)
[2025-09-25 17:07] LABS: Glucose - Point of Care 194 mg/dl (70-99)
[2025-09-25] MEDS: ZETIA 10 MG PO (17:07)
[2025-09-25] MEDS: NOVOLOG FLEXPEN 4 UNITS SC (18:03)
[2025-09-25 18:04] LABS: Glucose - Point of Care 170 mg/dl (70-99)
--- NOTE | 2025-09-25 18:18 | PTCARENOTE ---
Midodrine started for low BP; PRN Oxycodone given accordingly for pain; Patient eating dinner in chair at this time
[2025-09-25 19:28] LABS: Glucose - Point of Care 191 mg/dl (70-99)
[2025-09-25 20:12] LABS: Glucose - Point of Care 148 mg/dl (70-99)
--- NOTE | 2025-09-25 21:10 | PTCARENOTE ---
Report received from Elmo. Pt sitting in recliner chair. VS recorded. Pt assessed. Pt awake, alert, oriented x 4. Speech clear. Equal strength x 4. On room air. Sats 92-96%. BBS present. Shallow breathing at times. CDB and IS encouraged. IS peak 750
mls. Occasional moist, productive cough-small, thick, clear sputum. Audible heart tones. + rub. Pt in SR, rate 80's. AV wires present, insulated. Pt on Dobutamine gtt at 2 mcg/kg/min. RIJ Dumont Jhonny cath with pulsatile PA and CVP waveforms. CI done:
CI 2.23. BP 90-100's systolic. MAPs 60-66 mmHG via L radial A-line. Levophed gtt started at 1 mcg/min per order of IBETH Pantoja. MAPs now >65. DP pulses found via doppler. Radial pulse weaker on L-with A-line, normal R radial pulse. For wound
assessments, see flowsheet. CTs x 4. All to -20 cm suction. No air leak, tidaling, crepitus. Belly soft, nontender. Normoactive bs x 4. Pt had loose stools on day shift today. Good appetite. Thornton draining clear, juliane urine. Hourly UO recorded.
Glycemic protocol in use. Insulin gtt infusing per protocol. Currently Q 1 HR glucose checks. Ongoing plan of care.
[2025-09-25 21:32] LABS: Glucose - Point of Care 126 mg/dl (70-99)
[2025-09-25 22:39] LABS: Glucose - Point of Care 120 mg/dl (70-99)
[2025-09-25] MEDS: REMOVE LIDOCAINE PATCH 1 PATCH REMOVE (22:59)
[2025-09-25] MEDS: KEPPRA 500 MG PO (23:00)
[2025-09-25] MEDS: LIPITOR 80 MG PO (23:00)
[2025-09-25] MEDS: TOBRADEX EYE DROPS 2 DROP OPHTH (23:01)
[2025-09-26] VITALS (30 sets, daily range): BP systolic 79–118; BP diastolic 48–73; PULSE 81–83; O2SAT 94–99; BMI 29.3
[2025-09-26 00:52] LABS: Glucose - Point of Care 118 mg/dl (70-99)
--- NOTE | 2025-09-26 01:00 | PTCARENOTE ---
Pt repositioned in chair. (Pt prefers to sleep in chair overnight for comfort). C/O moderate sternal pain. Roxicodone 5 mg po given at 2253. Pt attempting to go to sleep. Noted decrease in BP 77-80's systolic. MAP < 65 (60-63). Pt asymptomatic of
lower BP. A-line assessed. Pulsatile waveform, + blood return. Levophed gtt increased to 3 mcg/min. CI 1.91. IBETH Jarrell at bedside and aware. Repeat CI in 1 hr: 2.18. SBP now 100's-120's, MAPs 70's while on Levo 3 mcg/min. Pt sleeping
intermittently. Pt refused CPAP at night. 2L/NC applied while pt sleeping. Sats on 2L/NC are 97-98%.
[2025-09-26 02:52] LABS: Glucose - Point of Care 90 mg/dl (70-99)
[2025-09-26] MEDS: TOBRADEX EYE DROPS 2 DROP OPHTH ×4 (02:56→17:00)
--- NOTE | 2025-09-26 03:05 | PTCARENOTE ---
Repeat CI 2.07. Pt remains on Levophed 3 mcg/min, Dobutamine 2 mcg/kg/min. Sleeping in chair for comfort. Sats 98% on 2L/NC. Remains in SR, rate 80-90's.
[2025-09-26 05:14] LABS: Glucose - Point of Care 107 mg/dl (70-99)
--- NOTE | 2025-09-26 05:17 | W.PN.CT ---
Today's Communication / Plan
-
-pod #2
-low BP with map <65 and low UO - started low-dose Levo overnight. Midodrine 5 tid started on 09/25
-CI 2.07, CO 4.11, SVR 1245, mVO2 66. Drips: Dobut 2, Levo 3 (now off), Insulin
-CT outputs: 2 meds 75/225, 2 pleur 95/205 in 12 /24 hrs
-Echo today
-am labs are pending
-Tm 100.7 - needs encouragement with IS- mostly 500 cc.
-respiratory and blood cxs were negative. Finishing course of Rocephin and Doxycycline 09/26
-maintain swan while on Dobut
-holding BB while on Dobut. Eventually, restart Coreg
-current meds (Lipitor, Zetia, ASA, Plavix, Amio, Mucinex, Feosol, Protonix, Keppra)
-L eye pain and tearing improved, feels better, vision intact- tx with Tobradex x 48 hrs
-encourage IS, OOB
Assessment / Plan
-
-S/p Coronary artery bypass grafting x 4 (In situ CUI to LAD, Ao to RSVG to OM seq to LPL, Ao to RSVG to RPDA); Coronary endarterectomy of the OM; Left atrial appendage ligation, 35mm clip by Dr. Michelle on 09/24/25, pod #2
-Intraop [place]: LVEF preop under anesthesia was approximately 30% with significant regional wall motion abnormalities toward the apical region. Following surgery, his EF did improve to approximate 35 to 40% while on 5 of dobutamine. There were no
new regional wall motion abnormalities. The left atrial appendage was verified to be free of any thrombus or debris preoperatively and found to be totally occlusive postoperatively. He had a trace to mild degree of mitral valve insufficiency that
appeared to be functional which remained the same.
-Multivessel CAD S/P PCI with stent to LAD (has in-stent stenosis)
-NSTEMI
-Acute on chronic systolic heart failure
-Respiratory failure secondary to pulmonary edema and underlying pneumonia
-PNA
-ICM (EF 24%, decreased from 40%)
-T2 DM (hgb A1C 11.5)
-HTN with hypotension upon admission
-HLD
-CVA S/P ILR, residual fuzziness of peripheral vision
-Seizure d/o
-S/P Left and right heart cath, 09/19/25
-Acute postop blood loss anemia - s/p 2 pRBCs
-Acute postop thrombocytopenia
-Acute postop atelectasis
-Acute postop suspected pericarditis, + rub
-Acute postop hypovolemia with subsequent hypervolemia
-Suspected acute postop L eye abrasion - improved, pain resolved, vision intact, tx with Tobradex
-Acute postop hypotension- started on Midodrine
Discussed patient care with: Nursing and Care Team
Subjective
-
Date of Service: September 26, 2025
Objective Data
-
PT 19.6 Sec (11.4-14.6) H 09/24/25 12:45
INR 1.69 09/24/25 12:45
APTT 32.6 Sec (23.4-35.0) 09/24/25 12:45
Vital Signs
Vital Signs
Temp Pulse Resp BP Pulse Ox
100.7 F H 90 17 111/66 94
09/25/25 23:38 09/26/25 00:00 09/26/25 00:00 09/26/25 00:00 09/26/25 00:00
CT Intake/Output/Weight
09/25/25 09/25/25 09/26/25
06:59 18:59 06:59
Intake Total 535.2 / 1844.8 1940.4 / 2182.6 242.2 / 2182.6
Output Total 680 / 1895 665 / 880 215 / 880
Balance -144.8 / -50.2 1275.4 / 1302.6 27.2 / 1302.6
SaO2: 94
Physical Exam
-
General: Awake and AOx3
Cardiovascular: Regular rate & rhythm, No Murmurs and Rub
Sternum: Stable
Incision: Clean, Dry and Intact
Abdomen: soft, nontender, nondistended, + decreased bowel sounds
Extremities: Edema +1 (DPs by Doppler b/l)
Data Reviewed
-
Lab Results: Results Reviewed
Medications: Active Meds Reviewed
Chest X-Ray: Report Reviewed and Image Reviewed
ECG: Report Reviewed and Image Reviewed
[2025-09-26 05:20] LABS: Hematocrit 27.4 % (39.0-52.0); Hemoglobin 9.5 g/dL (13.0-18.0); Mean Corp Hgb Conc. 34.7 g/dL (33.0-37.0); Mean Corpuscular Volume 90.1 fL (80.0-94.0); Platelet Count 178 10^3/uL (130-400); Red Cell Dist. Width 14.6 % (11.5-14.5)
[2025-09-26] MEDS: TYLENOL 975 MG PO ×3 (05:35→22:58)
[2025-09-26] MEDS: ROXICODONE 5 MG PO ×2 (05:39→14:31)
[2025-09-26 05:53] LABS: Blood Urea Nitrogen 25 mg/dl (9-20); Calcium 8.0 mg/dl (8.4-10.2); Carbon Dioxide 23 mmol/L (22-30); Chloride 104 mmol/L (98-107); Estimated Creatinine Clearance 84 ml/min; Glucose 95 mg/dl (70-99); Magnesium 2.1 mg/dl (1.6-2.3); Potassium 4.6 mmol/L (3.5-5.1); Sodium 131 mmol/L (135-145); eGFR > 60.00
[2025-09-26] MEDS: ALBUMIN 5% 250 IV ×2 (06:46→12:26)
--- NOTE | 2025-09-26 07:27 | W.PN.CD ---
Today's Communication / Plan
-
Wean pressors/inotropes for CI > 1.8 L/min/m2, MAP > 65 mmHg.
He will need diuresis soon.
Incentive spirometry.
Ambulation.
Impression / Plan
-
Impression/Plan: 60M with CAD/NSTEMI (2009), IDDM2, dyslipidemia, and CVA (s/p ILR) admitted with PNA complicated by NSTEMI and worsening ischemic cardiomyopathy (LVEF 40% --> 25%) with subsequent unveiling of severe, multivessel CAD, now s/p CABGx4
with Dr. Michelle 09/24/2025
Primary Band Reamer Machine Operator: formerly Dr. Luna
#NSTEMI/CAD s/p CABGx4 (CUI-LAD, SVG-OM-LPL, SVG-RPDA) and left atrial appendage ligation on 09/24/[address] Michelle
-given reduced EF, there was concern Impella 5.5 would be needed post-op but patient from bypass without difficulty
-Now off pressors
-Dobutamine at 2, norepinephrine at 3. Wean pressors/inotropes for CI < 1.8 L/min/m2, MAP > 65 mmHg.
-Pain/chest tube management per CT surgery.
-Secondary prevention with aspirin, statin, ezetimibe.
-Post operative amiodarone for AF prophylaxis.
#ICM
-Chronic, worsened (LVEF 40% --> 24% --> 30-35% on dobutamine).
-Furosemide to target PAD ~20 mmHg, examines euvolemic and weight near pre-op level, PAD <20, no need for diuresis today
-GDMT as tolerated:
-Diuretic: IV furosemide to target PAD ~20 mmHg.
-Beta kristie: Carvedilol 25 mg BID on hold post op. Resume at lower dose (or metoprolol) when no longer requiring pressors/inotropes.
-SGLT2i: Restart dapagliflozin (home empagliflozin).
-BENJI/ARB/ARNI: Patient will benefit from sacubitril-valsartan when hemodynamically stable.
-MRA: None currently. Consider spironolactone when stable post op.
-ICD: Assess post revasc / GDMT.
-Trend daily weight, I/O, & BMP with diuresis.
#Acute hypoxic respiratory insufficiency
-Acute, in the setting of pneumonia, resolved.
-COVID negative, influenza negative, Legionella negative, Strep pneumo Negative.
-Complete ABX course (ceftriaxone, doxycycline).
#IDDM2
-Chronic.
-HbA1c = 11.6%.
-The patient now has a class IA indication for GLP-1 analog medications at discharge.
-Start dapagliflozin 10 mg daily as above.
#Hypercholesterolemia
-Chronic, stable.
-Continue atorvastatin.
#History of CVA
-Chronic.
-Carotid duplex does show 50-69% LICA stenosis, <50% GALEN stenosis.
-Secondary prevention with aspirin.
#ILR
-No significant events, recently interrogated, followed in our device clinic.
Critical Care Time = 36 minutes.
Subjective/Interval History:
Patient remains on norepinephrine and dobutamine.
PAd is consistently 18-22.
Na down to 131.
DATA:
CT Chest, 09/19/2025:
IMPRESSION:
No evidence of central pulmonary embolism.
Widespread bilateral predominantly groundglass opacities, most prominent in the right upper and middle lobes, mild mediastinal/hilar lymphadenopathy and small bilateral pleural effusions. Findings overall are compatible with an
inflammatory/infectious process such as pneumonia/pneumonitis.
TTE, 09/19/2025:
SUMMARY
1. Severely reduced left ventricular systolic function. LVEF 24%.
2. Multiple left ventricular segmental wall motion abnormalities are noted, as described below.
3. No significant valvular disease.
4. Compared to prior echocardiogram in December 2023, LVEF has decreased from 44%. There was previously septal and apical hypokinesis but there is now akinesis of these segments and other new regional wall motion abnormalities.
Cardiac Catheterization, 09/19/2025:
CORONARY FINDINGS
Dominance: Right
Left Main Trunk (LMT): Large caliber vessel that gives rise to the LAD and LCx branches. The terminal left main has 60% stenosis involving the ostial LAD and LCx (Pleitez 1,1,1).
Left Anterior Descending Artery (LAD): Large caliber vessel that gives off several small caliber diagonal branches as it courses along the anterior inter-ventricular groove before wrapping around the cardiac apex. The LAD has diffuse disease. The
ostial LAD has 50% stenosis, thereafter the mid-vessel is stented jailing several small diagonals which has ostial 90% stenosis. The stented segment has severe in-stent restenosis up to 95%. There is then a 95% stenosis in mid-vessel distal to the
stent involving the ostium of another small caliber diagonal which has ostial 90% stenosis. The mid to distal LAD thereafter has diffuse 50-60% stenosis to the apical LAD.
Left Circumflex Artery (LCx): Large caliber vessel that gives off a large first major obtuse marginal (OM) and a small caliber OM2 as it courses along the atrio-ventricular (AV) groove. The ostial LCx has ostial 80% stenosis. The ostial OM1 has
80% stenosis. The OM2 is severely diffusely diseased.
Right Coronary Artery (RCA): Large caliber dominant vessel that gives rise to the posterior descending artery (RPDA) and postero-lateral ventricular (RPLV) branches distally. The RCA is diffusely diseased and calcified with mid-vessel 80%
stenosis, distal 70% stenosis involving the bifurcation of the RPDA with ostial 70% stenosis.
CONCLUSIONS
1. Severe triple vessel CAD involving the RCA, left main, LAD, LCx
2. Severe in-stent restenosis of the mid-LAD stent.
3. Elevated right and left sided filling pressures, normal cardiac output.
CT Chest/Abdomen/Pelvis, 09/22/2025:
IMPRESSION:
There are perihilar prominent groundglass opacities which have slightly decreased from prior and may represent improving infection or edema. Increased small/moderate bilateral pleural effusions with adjacent atelectasis.
Mild colonic stool burden.
TTE, 09/23/2025:
SUMMARY
1. Moderately reduced left ventricular systolic function. Left ventricular ejection fraction is 30-35% by visual estimate.
2. Multiple left ventricular segmental wall motion abnormalities are noted, as described below.
3. Compared to prior echocardiogram on 09/19/2025, LVEF has increased from 24% to 30-35%.
CABG, 09/24/2025:
Procedure(s) Performed:
1. Standard Sternotomy with Aortic and Right Atrial Cannulation
2. Internal Mammary Artery Harvesting, Left
3. Coronary artery bypass grafting x 4 (In situ CUI to LAD, Ao to RSVG to OM seq to LPL, Ao to RSVG to RPDA)
4. Endoscopic vein harvesting of R and L lower extremity
5. Transesophageal echocardiography
6. Placement of Temporary Atrial Ventricular Pacing Wires
7. Left atrial appendage ligation, 35mm clip
8. Coronary endarterectomy, of the OM
Physical Exam
Vital Signs/Labs
Vital Signs
Temp Pulse Resp BP Pulse Ox
37.8 C 97 19 103/50 97
09/26/25 05:00 09/26/25 05:45 09/26/25 05:45 09/26/25 05:15 09/26/25 05:45
09/24/25 09/25/25 09/26/25
11:59 11:59 11:59
Actual Weight 82.9 kg 84.3 kg
09/26/25 04:48
09/26/25 04:48
PT 19.6 Sec (11.4-14.6) H 09/24/25 12:45
INR 1.69 09/24/25 12:45
APTT 32.6 Sec (23.4-35.0) 09/24/25 12:45
Magnesium 2.1 mg/dl (1.6-2.3) 09/26/25 04:48
Triglycerides 71 mg/dl (10-149) 09/19/25 04:08
LDL Cholesterol, Calc 107 mg/dl 09/19/25 04:08
VLDL Cholesterol, Calc 14 mg/dl (0-30) 09/19/25 04:08
HDL Cholesterol 45 mg/dl 09/19/25 04:08
09/19/25
04:08
[id number] Pept 583
Physical Exam
Constitutional: No acute distress and Comfortable
EENT: Anicteric and Moist mucous membranes
Cardiovascular: Rhythm & rate is regular, S1S2 is normal and Rub present
Respiratory: Respiratory effort normal and Other (Decreased throughout.)
GI: Soft, Distention absent, Flat, Non tender and Normal bowel sounds
Neuro/Psych: AO x 3
Data Reviewed
-
Date of Service: September 26, 2025
Medical Decision Making: Reviewed Test Results, Independent Historian Assessment and Test Interpretation
EKG: Tracing Personally Visualized and interpreted and Report Reviewed by me
Echo: Report Reviewed by me
X-Ray/CT/US/MRI/NUC/PET: Image Personally Visualized and interpreted and Report Reviewed by me
Medical Tests (PFT, Pathology etc): Image Personally Visualized and interpreted and Report Reviewed by me
Labs: Labs Reviewed by me
Old Records: Reviewed
[2025-09-26 07:28] LABS: Glucose - Point of Care 83 mg/dl (70-99)
--- NOTE | 2025-09-26 07:30 | PTCARENOTE ---
Labs drawn and sent this am. CXR done. Pt with elevated BP when c/o pain. Oxycodone 5 mg po given. Levo titrated to 1 mcg/min. Midodrine 5 mg po given when BP 100's systolic. Albumin 5% 250 mls given this am. Last CI 2.1. Dobutamine gtt decreased
to 1.5 mcg/kg/min per order Muriel FLORES at ~ 0650. Report to EDGARD Borrego. Pt weighed on standing scale with 2 RN assist.
[2025-09-26] MEDS: NOVOLOG FLEXPEN SC ×2 (08:06→12:27)
[2025-09-26] MEDS: BACTROBAN 2% OINTMENT 1 APPLIC NASAL ×2 (08:16→20:53)
[2025-09-26] MEDS: NEURONTIN 100 MG PO ×3 (08:16→22:57)
[2025-09-26] MEDS: PLAVIX 75 MG PO (08:16)
[2025-09-26] MEDS: LIDOCAINE 4% PATCH 1 PATCH TOPICAL (08:16)
[2025-09-26] MEDS: STERILE WATER FOR INJECTION 10 ML IV (08:16)
[2025-09-26] MEDS: LOW STRENGTH ASPIRIN 81 MG PO (08:16)
[2025-09-26] MEDS: MAGNESIUM OXIDE 400 MG PO ×2 (08:16→20:55)
[2025-09-26] MEDS: THERAGRAN 1 TABLET PO (08:16)
[2025-09-26] MEDS: PROTONIX 40 MG PO (08:16)
[2025-09-26] MEDS: PACERONE 200 MG PO ×3 (08:16→22:57)
[2025-09-26] MEDS: MUCINEX 600 MG PO ×2 (08:16→20:54)
[2025-09-26] MEDS: VITAMIN C 500 MG PO (08:16)
[2025-09-26] MEDS: ROCEPHIN 1000 MG IV (08:17)
--- NOTE | 2025-09-26 08:27 | PN.DE.MGMTRT ---
Insulin Management
- -
09/26/2025: Diabetes Management Follow up
Patient admitted 09/19 with breathing problem - acute on chronic HF and pneumonia. Diabetes Management consult 09/25.
PMH: CAD/NH with decreased EF 2008, seizure disorder, HLD, HTN, CVA and T2DM. On admission patient had L heart cath -severe triple vessel CAD. 09/23 R heart cath. Prior to admission was taking Lantus 24 units @ HS with Metformin 1000 mg BID. A1C on
admission 11.5%, Cr .9, eGFR > 60 today.
Patient is awake alert and oriented, resting in bed, able to get an echo done, able to discuss diabetes care. POD #2 s/p CABG x 4.
States he has had diabetes ~ 30 years. Had insurance issues in the last year so obtaining medications and seeing providers was not possible. In the past he has taken Lantus at hs with AC NovoLog and Jardiance and metformin. He states he has
Jardiance at home. States in the past he has seen Dr. Martinez and has an appointment set up for 10/20.
Patient currently receiving critical care glycemic protocol insulin infusion @ 0.2 to 2 units of insulin per hour.
Will transition to basal bolus regimen with Farxiga. Give Lantus 10 units at noon, turn drip off 1 hrs after administering Lantus. Resume Lantus 24 units at HS.
Start NovoLog 5 units AC and low corrective with meals. Start Farxiga 10mg daily, will ask CM to verify co-pay. Resume MFM 1000 mg BID
Patient will be seen by the Diabetes Nurse Educator for CGM- Gladis 3+ sensor
Discussed with nurse. Will cont to follow.
Diabetes History
- -
Type of Diabetes: 2 requiring insulin
Pre-Admission Diabetes Regimen
09/26/25
04:48
Creatinine 0.9
Lab Results
Hemoglobin A1c Cancelled 09/19/25 07:55
Insulin Pump Settings
IP Diabetes Regimen
09/25/25 09/25/2509/25/25
10:08 12:14 14:18
Glucose
POC Glucose 112 H 117 H 124 H
09/25/25 09/25/25 09/25/25
16:07 17:06 18:00
Glucose
POC Glucose 205 H 194 H 170 H
09/25/25 09/25/25 09/25/25
19:25 20:11 21:31
Glucose
POC Glucose 191 H 148 H 126 H
09/25/25 09/26/25 09/26/25
22:38 00:51 02:51
Glucose
POC Glucose 120 H 118 H 90
09/26/25 09/26/25 09/26/25
04:48 05:13 07:26
Glucose 95
POC Glucose 107 H 83
Meal type: Dinner
Meal type: Lunch
Meal type: Breakfast
Amount consumed: 80%
Amount consumed: 100%
Amount consumed: 100%
Patient Education
--- NOTE | 2025-09-26 09:00 | PTCARENOTE ---
Patient received from operations supervisor 2nd shift RN; AAOx3, responds spontaneously to RN and follows commands; Patient complains of left peripheral vision 'fuzziness' and states it is his baseline from previous stroke; Anxious at times; VSS; NSR on monitor;
Friction rub present; Epicardial AV wires insulated; +1 B/L UE and +2 LE edema; +2 radial pulses and DP pulses present by doppler; Shallow respirations; Occasional, productive cough with clear, thick sputum; SpO2 91-97% on RA; Lungs diminished at
bases; CTx4 connected to -20 cm wall suction and draining serosanguineous drainage - no air leak, tidaling, or crepitus noted; IS 750 ml; Poor appetite; Thornton catheter draining clear, juliane urine; Surgical sites intact; PIVx1 - #20 left forearm;
Right midline; RIJ Cordis with [place]-ness at 45 cm - all lines zeroed and level; Levo, dobutamine, and insulin infusing - see nursing flowsheets for further details; See nursing documentation for further information
CO: 3.93
CI: 1.97
SVR: 997
[2025-09-26 09:07] LABS: Glucose - Point of Care 128 mg/dl (70-99)
--- NOTE | 2025-09-26 09:59 | CARDSERVLU ---
Echocardiogram with [facility] completed after protocol screening completed. Allergies verified.
Patent IV site: __Left arm 20 G PC site clear___
IV site flushed with 0.9% NaCl pre and post administration.
Diluted bolus method utilized to enhance visualization of ventricular hui.
Total volume given: __3__ mL
Patient tolerated all procedures well without complications.
[2025-09-26 11:13] LABS: Glucose - Point of Care 120 mg/dl (70-99)
[2025-09-26] MEDS: FARXIGA 10 MG PO (11:13)
[2025-09-26] MEDS: TOBRADEX EYE DROPS 1 DROP OPHTH (11:14)
[2025-09-26] MEDS: LANTUS 0.1 UNITS SC (11:14)
[2025-09-26] MEDS: NSS 500 IV (12:28)
[2025-09-26 12:33] LABS: Glucose - Point of Care 141 mg/dl (70-99)
--- NOTE | 2025-09-26 12:39 | PTCARENOTE ---
Patient transferred back to bed for Echo; BP noted to increase and Levophed infusion able to be weaned off during this - knee high TEDs applied as per CVNP Muriel Nicole; Pleural CT's removed by RN at bedside following echo - VSS and no complications
noted; Patient ambulating in hallways with cardiac rehab and RN afterwards and noted to be orthostatic when transferring out of bed; Patient complains of minor dizziness during change - BP 93/71 (supine), 87/67 (sitting) and 79/56 (standing) -
Albumin 5% ordered and given; Insulin gtt d/c'd as per TELEMARKETING SUPERVISOR Rigoberto Maki; Patient resting comfortably in chair at this time
--- NOTE | 2025-09-26 12:41 | W.PN.INTV ---
Today's Communication / Plan
Recommendations
Slow wean off of dobutamine, EF recovered some
No new complaints, doing well with recovery, ambulating
Pain control going well
Continue further postop management per team
Assessment
-
60-year-old man with past medical history noted admitted with epigastric pain and hypoxemia. Found to have abnormal CT chest with bilateral abnormalities, increased troponins. Subsequently underwent left heart catheterization that demonstrated
multivessel coronary artery disease. Currently undergoing evaluation for coronary artery bypass.
Acute respiratory insufficiency requiring 3 L nasal cannula.
Non-ST elevation myocardial infarction ischemic cardiomyopathy with ejection fraction 24%. s/p CAB x 4 (In situ CUI to LAD, Ao to RSVG to OM seq to LPL, Ao to RSVG to RPDA)/Coronary endarterectomy of OM 09/24/25
Multivessel coronary artery disease s/p Cardiac catheterization 09/19/2025 w/ Severe in-stent stenosis of mid LAD stent/Elevated right and left sided filling pressures/Normal cardiac output
Abnormal CT chest: Bilateral infiltrates right greater than left-pneumonia/suspected also pulmonary edema component based on bilateral pleural effusions and enlarged lymph nodes.
Suspect heart failure/possibly pneumonia component as well.
Leukocytosis/afebrile
Conditions present prior admission:
Type 2 diabetes
History of coronary artery disease with stenting 2008
Ischemic cardiomyopathy
Essential hypertension
Hyperlipidemia
History of CVA
History of seizure disorder
Minimal bronchiectasis post pneumonia
Plan:
Transferred to CVICU -- s/p CAB x 4 POD #2
Titrate off pressors per protocol--on dobutamine, weaning slowly down
ECHO reviewed with low function- EF 24%--now 32%
PA catheter readings reviewed
Management of chest tubes per primary service
Suspect hypoxemia multifactorial: CT chest with ground glass opacities bilaterally, bilateral pleural effusion, enlarged reactive mediastinal lymph nodes.
Rapid improvement from 09/19 to 09/22/2025 suggest pulmonary edema component. Cardiac cath also with increased left and right sided pressures.
Cannot rule out pneumonia component with leukocytosis. Patient is afebrile.
Empiric treatment with antibiotic for community-acquired infection
All microbiology negative-including COVID, influenza, strep and Legionella antigen in urine.
Not producing sputum.
PCT neg, can stop abx
Intubated for procedure, extubated and doing well
ABG(s) reviewed/adequate
CXR with stable postop changes
Wean supplement oxygen as tolerated
Updated echocardiogram demonstrated decline in LVEF. Cardiac catheterization report noted.
Chest pain-free. Peak troponin 22. Trending lower.
Continue cardiac management
Agree with some diuresis as able
Continue with goal-directed therapy
Diet advancement
Aspiration precautions
GI prophylaxis if indicated
Monitor critical I/O's
Thornton/chest tube output
Hb/platelets postoperatively stable
Trend CBC for now
Can transfuse if indicated for Hb <7, plt <50 in surgical patients
DVT prophylaxis including SCDs
Insulin protocol initiated and ongoing
Transition to SQ/off as indicated per team
Data reviewed:
CXR 09/24/25: Lungs/Pleura: No focal airspace disease. No pleural effusions or pneumothorax. Mediastinum/Heart: Within post operative limits of normal. Multiple median sternotomy wires and mediastinal clips noted. Bones: No gross osseous
abnormality.
Echo 09/19/2025:
1. Severely reduced left ventricular systolic function. LVEF 24%.
2. Multiple left ventricular segmental wall motion abnormalities are noted, as described below.
3. No significant valvular disease.
4. Compared to prior echocardiogram in December 2023, LVEF has decreased from 44%. There was previously septal and apical hypokinesis but there is now akinesis of these segments and other new regional wall motion abnormalities.
-
CT chest 09/22/2025: There are perihilar prominent groundglass opacities which have slightly decreased from prior and may represent improving infection or edema. Increased small/moderate bilateral pleural effusions with adjacent atelectasis.
Critical Care time 31 mins -- The patient is admitted for acute critical illness for the treatment of vital organ failure and/or prevention of further life-threatening conditions. Total care includes time spent in review of history, physical exam,
medications, hemodynamic/ventilator parameters, laboratory data, imaging and discussion with house staff, pharmacy, respiratory therapy, scrum master, and nursing.
Subjective Dataa
Subjective Data
Date of Service:
Date of Service: September 26, 2025
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
Subjective:
Doing well today, no new complaints
Sitting in chair
Weaning on dobutamine
Objective Data
Data Reviewed
Vital Signs / I&O / Oxygen:
Vital Signs
Temp Pulse Resp BP Pulse Ox
99.1 F 83 24 101/64 96
09/26/25 12:00 09/26/25 12:00 09/26/25 12:00 09/26/25 12:00 09/26/25 12:00
Intake and Output
09/25/25 09/26/25 09/27/25
06:59 06:59 06:59
Intake Total 1821.4 / 1844.8 2704.7 / 2732.4 613.1 / 613.1
Output Total 1830 / 1895 1195 / 1240 195 / 195
Balance -8.6 / -50.2 1509.7 / 1492.4 418.1 / 418.1
SaO2 [CPAP] 95
SaO2 [SIMV] 97
SaO2 96
Nasal Cannula flow liters per 2
minute
Physical Exam
General: Comfortable and Good Appetite
HEENT: Normocephalic, Anicteric and Moist Mucous Membranes
Cardiovascular: S1-S2 and Regular Rhythm
Respiratory: Clear, Non-Labored Respirations and Chest Tube
GI: Soft, Non Distended and Non Tender
Neurology: Awake, Alert, Oriented and No Motor Deficits
Skin: Warm, Dry and Good Color
Labs/Micro/Reports
Lab Data
09/26/25 04:48
09/26/25 04:48
Microbiology
09/19/25 07:59 Blood/Venous Blood Culture - Final
No Growth - Final Report
09/19/25 07:55 Blood/Venous Blood Culture - Final
No Growth - Final Report
--- NOTE | 2025-09-26 13:44 | CM ---
Chart reviewed. Patient OOB sitting in the chair. Patient is independent of ADLS, lives with his in a 2 STH, 1st floor set up, 2 DAVID, 0 DME. Plan is for the patient to return home with CT Transitional RN. CM to follow
[2025-09-26] MEDS: NOVOLOG FLEXPEN-LOW RESISTANCE SC ×2 (14:29→17:06)
[2025-09-26] MEDS: FERRLECIT 110 MG IV (14:31)
[2025-09-26] MEDS: NOVOLOG FLEXPEN 5 UNITS SC ×2 (14:31→18:11)
[2025-09-26] MEDS: DOBUTREX 250 IV (16:05)
--- NOTE | 2025-09-26 16:45 | PTCARENOTE ---
AV wires cut by CVNP Muriel Nicole at bedside; Mediastinal chest tubes removed by RN at bedside - VSS and no complications noted; [place] removed at bedside by RN; Patient lying comfortably in bed at this time
[2025-09-26] MEDS: GLUCOPHAGE 1000 MG PO (17:00)
[2025-09-26] MEDS: ZETIA 10 MG PO (17:00)
[2025-09-26 17:04] LABS: Glucose - Point of Care 121 mg/dl (70-99)
[2025-09-26] MEDS: ENTRESTO 24 MG/26 MG PO (20:37)
[2025-09-26] MEDS: REMOVE LIDOCAINE PATCH 1 PATCH REMOVE (20:55)
--- NOTE | 2025-09-26 21:00 | PTCARENOTE ---
Patient received OOB in chair. Patient A+A+Ox3. No neurological deficits noted. No c/o headache, dizziness or lightheadedness. O2 at 2L via NC. SpO2 95%. Chest tube dressing intact. Sinus Rhythm. Heart rate 70's. Blood pressure 106/69 (81).
Patient with no c/o chest pain, pressure or discomfort. Continues on Dobutamine gtt 1.5 mcq/kg/min (1.9 ml/hr). Right I.J. Cordis. Right midline catheter. Left radial arterial line. Normoactive bowel sounds. No BM. No c/o nausea. No
vomiting. No urge to void at this time. Sternal incision intact - Surgical adhesive - Open to air. Right and left groin sites intact. Right and left leg incisions intact. Bilateral lower extremity edema. Positive, Doppler pulses. Roxicodone 5
mg PO for pain management. Assessment as documented.
[2025-09-26 22:52] LABS: Glucose - Point of Care 142 mg/dl (70-99)
[2025-09-26] MEDS: LANTUS SC (22:56)
[2025-09-26] MEDS: KEPPRA 500 MG PO (22:56)
[2025-09-26] MEDS: LIPITOR 80 MG PO (22:57)
[2025-09-26] MEDS: LANTUS 0.24 UNITS SC (23:00)
[2025-09-27] VITALS (25 sets, daily range): BP systolic 83–112; BP diastolic 45–69; PULSE 78; O2SAT 97–99; BMI 29.7
--- NOTE | 2025-09-27 | PTCARENOTE ---
Patient sleeping without difficulty. Assessment/Interventions as documented.
--- NOTE | 2025-09-27 04:21 | W.PN.CT ---
Today's Communication / Plan
-
Plan:
-No major issues overnight. Hemodynamically and neurologically intact
-On dobutamine @ 1.5 mcg/kg/min. Will wean as tolerated
-MVO2 off cordis: 69.2%
-Thornton catheter d/c'd yesterday @ 1735, voided 200 mL post, monitor and check PVR
-Noted to be hypotensive postop, currently on Midodrine since 09/25. Holding BB
-Will replete ca++ to help augment BP
-Maintain cordis another day while on Dobutamine gtt
-Repeat echo yesterday 09/26 showed improved LVEF of 45-50% from 30-35% on 09/23/25
-GDMT as tolerated, started on Farxiga, will add Entresto as BP permits
-Cont current meds (Lipitor, Zetia, ASA, Plavix, Amio, Mucinex, Feosol, Protonix, Keppra)
-Diabetes education/management following, A1C 11.5
-Monitor postop hyponatremia, 131-> 132. Will diurese as BP allows and fluid restrict
-Maintain cordis while on Dobutamine
-Temporary PW cut yesterday 09/26
-Encourage use of IS
-OOB into chair/Ambulate
Assessment / Plan
-
-S/p Coronary artery bypass grafting x 4 (In situ CUI to LAD, Ao to RSVG to OM seq to LPL, Ao to RSVG to RPDA); Coronary endarterectomy of the OM; Left atrial appendage ligation, 35mm clip by Dr. Michelle on 09/24/25, pod #3
-Intraop [place]: LVEF preop under anesthesia was approximately 30% with significant regional wall motion abnormalities toward the apical region. Following surgery, his EF did improve to approximate 35 to 40% while on 5 of dobutamine. There were no
new regional wall motion abnormalities. The left atrial appendage was verified to be free of any thrombus or debris preoperatively and found to be totally occlusive postoperatively. He had a trace to mild degree of mitral valve insufficiency that
appeared to be functional which remained the same.
-Multivessel CAD S/P PCI with stent to LAD (has in-stent stenosis)
-NSTEMI
-Acute on chronic systolic heart failure
-Respiratory failure secondary to pulmonary edema and underlying pneumonia
-PNA
-ICM (EF 24%, decreased from 40%)
-T2 DM (hgb A1C 11.5)
-HTN with hypotension upon admission
-HLD
-CVA S/P ILR, residual fuzziness of peripheral vision
-Seizure d/o
-S/P Left and right heart cath, 09/19/25
-Acute postop blood loss anemia - s/p 2 pRBCs
-Acute postop thrombocytopenia
-Acute postop atelectasis
-Acute postop suspected pericarditis, + rub
-Acute postop hypovolemia with subsequent hypervolemia
-Suspected acute postop L eye abrasion - improved, pain resolved, vision intact, tx with Tobradex
-Acute postop hypotension- started on Midodrine
-Acute postop hyponatremia
-Acute postop probable left eye corneal abrasion, treated with Tobradex
Discussed patient care with: Cardiology, Nursing, Respiratory Therapy, Pharmacy and Care Team
Subjective
-
Date of Service: September 27, 2025
Pt c/o mild incisional pain, otherwise feels well
Objective Data
-
PT 19.6 Sec (11.4-14.6) H 09/24/25 12:45
INR 1.69 09/24/25 12:45
APTT 32.6 Sec (23.4-35.0) 09/24/25 12:45
Vital Signs
Vital Signs
Temp Pulse Resp BP Pulse Ox
98.3 F 74 16 108/68 96
09/26/25 20:00 09/27/25 03:45 09/27/25 02:00 12/06/25 03:02 09/27/25 02:00
CT Intake/Output/Weight
09/26/25 09/26/25 09/27/25
06:59 18:59 06:59
Intake Total 764.3 / 2732.4 1556.8 / 1903.9 347.1 / 1903.9
Output Total 530 / 1240 655 / 855 200 / 855
Balance 234.3 / 1492.4 901.8 / 1048.9 147.1 / 1048.9
SaO2: 96 (2L)
Physical Exam
-
General: Awake, Oriented and AOx3
Cardiovascular: Regular rate & rhythm, No Murmurs, No Rub and No Gallop
Respiratory: Decreased Breath Sounds (at bases, otherwise clear)
Sternum: Stable
Incision: Clean, Dry, Intact and Dressing Intact
Extremities: Edema +1 and Other
Data Reviewed
-
Lab Results: Results Reviewed
Medications: Active Meds Reviewed
Chest X-Ray: Report Reviewed and Image Reviewed
ECG: Report Reviewed and Image Reviewed
[2025-09-27 04:37] LABS: Hematocrit 26.9 % (39.0-52.0); Hemoglobin 9.0 g/dL (13.0-18.0); Mean Corp Hgb Conc. 33.5 g/dL (33.0-37.0); Mean Corpuscular Volume 91.2 fL (80.0-94.0); Platelet Count 145 10^3/uL (130-400); Red Cell Dist. Width 14.7 % (11.5-14.5)
[2025-09-27 04:56] LABS: Blood Urea Nitrogen 25 mg/dl (9-20); Calcium 8.0 mg/dl (8.4-10.2); Carbon Dioxide 26 mmol/L (22-30); Chloride 104 mmol/L (98-107); Estimated Creatinine Clearance 84 ml/min; Glucose 119 mg/dl (70-99); Magnesium 2.3 mg/dl (1.6-2.3); Potassium 4.5 mmol/L (3.5-5.1); Sodium 132 mmol/L (135-145); eGFR > 60.00
[2025-09-27] MEDS: CALCIUM GLUCONATE 130 MG IV ×2 (04:59→20:35)
--- NOTE | 2025-09-27 05:30 | PTCARENOTE ---
Patient A+A+Ox3. No neurological deficits noted. No c/o headache, dizziness or lightheadedness. No c/o pain or discomfort. AM labs collected and sent. Ionized Calcium 1.16. Calcium Gluconate 3,000mg/130ml IV ordered by IBETH and infusing without
difficulty. Patient given CHG bath and linens changed. Chest tube dressing changed. Portable CXR completed. Standing scale weight 88.6 kg. OOB to chair. Assessment/Interventions as documented.
[2025-09-27] MEDS: TYLENOL PO (05:47)
[2025-09-27 08:40] LABS: Glucose - Point of Care 115 mg/dl (70-99)
[2025-09-27] MEDS: MUCINEX 600 MG PO ×2 (08:41→20:06)
[2025-09-27] MEDS: PACERONE 200 MG PO ×3 (08:41→21:57)
[2025-09-27] MEDS: THERAGRAN 1 TABLET PO (08:41)
[2025-09-27] MEDS: GLUCOPHAGE 1000 MG PO ×2 (08:41→17:15)
[2025-09-27] MEDS: FARXIGA 10 MG PO (08:41)
[2025-09-27] MEDS: ENTRESTO 24 MG/26 MG 1 TAB PO (08:41)
[2025-09-27] MEDS: PROTONIX 40 MG PO (08:41)
[2025-09-27] MEDS: PLAVIX 75 MG PO (08:41)
[2025-09-27] MEDS: MAGNESIUM OXIDE 400 MG PO ×2 (08:41→20:06)
[2025-09-27] MEDS: VITAMIN C 500 MG PO (08:41)
[2025-09-27] MEDS: NOVOLOG FLEXPEN-LOW RESISTANCE SC (08:42)
[2025-09-27] MEDS: LOW STRENGTH ASPIRIN 81 MG PO (08:42)
[2025-09-27] MEDS: NOVOLOG FLEXPEN 5 UNITS SC ×3 (08:42→17:16)
[2025-09-27] MEDS: BACTROBAN 2% OINTMENT 1 APPLIC NASAL ×2 (08:42→20:06)
[2025-09-27] MEDS: STERILE WATER FOR INJECTION IV (09:08)
[2025-09-27] MEDS: LIDOCAINE 4% PATCH TOPICAL (09:08)
[2025-09-27] MEDS: NEURONTIN PO (09:08)
--- NOTE | 2025-09-27 09:34 | W.PN.INTV ---
Today's Communication / Plan
Recommendations
Still remains on low dose dobutamine but weaning down
EF with more improvement noted
PAC and chest tubes discontinued
Ambulating, doing well
Can likely transfer to floors once off dobutamine
Assessment
-
60-year-old man with past medical history noted admitted with epigastric pain and hypoxemia. Found to have abnormal CT chest with bilateral abnormalities, increased troponins. Subsequently underwent left heart catheterization that demonstrated
multivessel coronary artery disease. Currently undergoing evaluation for coronary artery bypass.
Acute respiratory insufficiency requiring 3 L nasal cannula.
Non-ST elevation myocardial infarction ischemic cardiomyopathy with ejection fraction 24%. s/p CAB x 4 (In situ CUI to LAD, Ao to RSVG to OM seq to LPL, Ao to RSVG to RPDA)/Coronary endarterectomy of OM 09/24/25
Multivessel coronary artery disease s/p Cardiac catheterization 09/19/2025 w/ Severe in-stent stenosis of mid LAD stent/Elevated right and left sided filling pressures/Normal cardiac output
Abnormal CT chest: Bilateral infiltrates right greater than left-pneumonia/suspected also pulmonary edema component based on bilateral pleural effusions and enlarged lymph nodes.
Suspect heart failure/possibly pneumonia component as well.
Leukocytosis/afebrile
Conditions present prior admission:
Type 2 diabetes
History of coronary artery disease with stenting 2008
Ischemic cardiomyopathy
Essential hypertension
Hyperlipidemia
History of CVA
History of seizure disorder
Minimal bronchiectasis post pneumonia
Plan:
Transferred to CVICU -- s/p CAB x 4 POD #3
Titrate off pressors per protocol--on dobutamine, weaning slowly down
ECHO reviewed with low function- EF 24%--now >40%, improving
PAC and chest tubes are discontinued
Suspect hypoxemia multifactorial: CT chest with ground glass opacities bilaterally, bilateral pleural effusion, enlarged reactive mediastinal lymph nodes.
Rapid improvement from 09/19 to 09/22/2025 suggest pulmonary edema component. Cardiac cath also with increased left and right sided pressures.
Patient is afebrile.
All microbiology negative-including COVID, influenza, strep and Legionella antigen in urine.
Not producing sputum.
PCT neg, can stop abx
Intubated for procedure, extubated and doing well
ABG(s) reviewed/adequate
CXR with stable postop changes
Wean supplement oxygen as tolerated
Updated echocardiogram demonstrated decline in LVEF. Cardiac catheterization report noted.
Chest pain-free. Peak troponin 22. Trending lower.
Continue cardiac management
Agree with some diuresis as able
Continue with goal-directed therapy
Diet advancement
Aspiration precautions
GI prophylaxis if indicated
Monitor critical I/O's
Thornton/chest tube output
Hb/platelets postoperatively stable
Trend CBC for now
Can transfuse if indicated for Hb <7, plt <50 in surgical patients
DVT prophylaxis including SCDs
Data reviewed:
CXR 09/24/25: Lungs/Pleura: No focal airspace disease. No pleural effusions or pneumothorax. Mediastinum/Heart: Within post operative limits of normal. Multiple median sternotomy wires and mediastinal clips noted. Bones: No gross osseous
abnormality.
Echo 09/19/2025:
1. Severely reduced left ventricular systolic function. LVEF 24%.
2. Multiple left ventricular segmental wall motion abnormalities are noted, as described below.
3. No significant valvular disease.
4. Compared to prior echocardiogram in December 2023, LVEF has decreased from 44%. There was previously septal and apical hypokinesis but there is now akinesis of these segments and other new regional wall motion abnormalities.
-
CT chest 09/22/2025: There are perihilar prominent groundglass opacities which have slightly decreased from prior and may represent improving infection or edema. Increased small/moderate bilateral pleural effusions with adjacent atelectasis.
Critical Care time 31 mins -- The patient is admitted for acute critical illness for the treatment of vital organ failure and/or prevention of further life-threatening conditions. Total care includes time spent in review of history, physical exam,
medications, hemodynamic/ventilator parameters, laboratory data, imaging and discussion with house staff, pharmacy, respiratory therapy, supervisor transferring and boxing, and nursing.
Subjective Dataa
Subjective Data
Date of Service:
Date of Service: September 27, 2025
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
Subjective:
Remains on low dose dobutamine
Objective Data
Data Reviewed
Vital Signs / I&O / Oxygen:
Vital Signs
Temp Pulse Resp BP Pulse Ox
98.3 F 78 16 106/63 96
09/27/25 04:00 09/27/25 07:30 09/27/25 04:00 09/27/25 04:31 09/27/25 04:47
Intake and Output
09/26/25 09/27/25 09/28/25
06:59 06:59 06:59
Intake Total 2704.7 / 2732.4 2069.6 / 2069.6
Output Total 1195 / 1240 855 / 855
Balance 1509.7 / 1492.4 1214.6 / 1214.6
SaO2 [CPAP] 95
SaO2 [SIMV] 97
SaO2 96
Nasal Cannula flow liters per 2
minute
Physical Exam
General: Comfortable and Good Appetite
HEENT: Normocephalic, Anicteric and Moist Mucous Membranes
Cardiovascular: S1-S2 and Regular Rhythm
Respiratory: Clear and Non-Labored Respirations
GI: Soft, Non Distended and Non Tender
Neurology: Awake, Alert, Oriented and No Motor Deficits
Skin: Warm, Dry and Good Color
Labs/Micro/Reports
Lab Data
09/27/25 04:14
09/27/25 04:14
Microbiology
09/19/25 07:59 Blood/Venous Blood Culture - Final
No Growth - Final Report
09/19/25 07:55 Blood/Venous Blood Culture - Final
No Growth - Final Report
--- NOTE | 2025-09-27 10:04 | PTCARENOTE ---
Received pt from journeyman patternmaker RN at 0700; pt AAOX3 and resting comfortably in chair; NSR on monitor and VSS: RIJ Cordis, Right Midline, Left A-line and PIV x1 all lines leveled and zeroed; Dobutamine infusing see flow sheet for details; Lungs
diminished; IS to 1000; positive bowel sounds; Pt voiding yellow urine; palpable radial pulses and weak lower extremity pulses; +1 lower extremity edema noted; all surgical sites C/D/I; see nursing documentation for further details.
Left A-line removed per CTNP order.
[2025-09-27] MEDS: NSS IV (11:34)
[2025-09-27] MEDS: LASIX 40 MG IV (11:34)
--- NOTE | 2025-09-27 11:57 | PTCARENOTE ---
Assessment unchanged; NSR on monitor and VSS; pt resting comfortably in chair with family at bedside.
[2025-09-27 13:07] LABS: Glucose - Point of Care 227 mg/dl (70-99)
[2025-09-27] MEDS: FERRLECIT 110 MG IV (13:39)
[2025-09-27] MEDS: TYLENOL 975 MG PO ×2 (13:40→21:58)
[2025-09-27] MEDS: NOVOLOG FLEXPEN-LOW RESISTANCE 2 UNITS SC ×2 (13:41→17:17)
[2025-09-27] MEDS: TORADOL 15 MG IV (15:16)
--- NOTE | 2025-09-27 15:43 | PTCARENOTE ---
NSR on monitor and VSS: assessment unchanged; pt resting comfortably in chair.
[2025-09-27] MEDS: ZETIA 10 MG PO (17:15)
[2025-09-27 17:19] LABS: Glucose - Point of Care 242 mg/dl (70-99)
[2025-09-27] MEDS: REMOVE LIDOCAINE PATCH REMOVE (20:06)
--- NOTE | 2025-09-27 20:39 | PTCARENOTE ---
received pt from previous rn. Pt AAOx4. NSR per tele monitor HR 70s. +pulses, +1 b/l LE edema. pox 96% on RA, lungs diminished at bases, occasional productive cough noted. +bs. pt voiding in urinal spontaneously. all surgical incisions intact. RIJ
cordis infusing KVO and Dobutamine as ordered. PIVx1 intact. Midline intact. plan of care discussed and questions encouraged. call george within reach. see worklist for full nursing assessment, I&Os, and nursing interventions.
[2025-09-27] MEDS: KEPPRA 500 MG PO (21:57)
[2025-09-27] MEDS: LIPITOR 80 MG PO (21:57)
[2025-09-27] MEDS: LANTUS 0.24 UNITS SC (22:01)
[2025-09-27 22:03] LABS: Glucose - Point of Care 193 mg/dl (70-99)
[2025-09-28] VITALS (11 sets, daily range): BP systolic 98–117; BP diastolic 55–67; BMI 29.7
--- NOTE | 2025-09-28 00:01 | PTCARENOTE ---
Pt resting in chair. VSS. NSR per tele monitor HR 70s. pox 96% on RA. Assessment remains unchanged,
--- NOTE | 2025-09-28 03:38 | W.PN.CT ---
Today's Communication / Plan
-
Plan:
-No major issues overnight. Hemodynamically and neurologically intact
-On dobutamine @ 1.0 mcg/kg/min. Will wean as tolerated
-MVO2 off cordis: 73.4%
-Noted to be hypotensive postop, on Midodrine since 09/25. Holding BB
-Maintain cordis another day while on Dobutamine gtt
-Repeat echo on 09/26 showed improved LVEF of 45-50% from 30-35% on 09/23/25
-GDMT as tolerated, started on Farxiga, will add Entresto as BP permits
-Cont current meds (Lipitor, Zetia, ASA, Plavix, Amio, Mucinex, Feosol, Protonix, Keppra)
-Diabetes education/management following, A1C 11.5
-Monitor postop hyponatremia, 131-> 132->132. Will diurese as BP allows and fluid restrict
-Maintain cordis while on Dobutamine
-Temporary PW cut on 09/26 without incident
-Encourage use of IS
-OOB into chair/Ambulate
-Home in 1-2 days, will consider repeat echo off Dobutamine
Assessment / Plan
-
-S/p Coronary artery bypass grafting x 4 (In situ CUI to LAD, Ao to RSVG to OM seq to LPL, Ao to RSVG to RPDA); Coronary endarterectomy of the OM; Left atrial appendage ligation, 35mm clip by Dr. Michelle on 09/24/25, pod #4
-Intraop [place]: LVEF preop under anesthesia was approximately 30% with significant regional wall motion abnormalities toward the apical region. Following surgery, his EF did improve to approximate 35 to 40% while on 5 of dobutamine. There were no
new regional wall motion abnormalities. The left atrial appendage was verified to be free of any thrombus or debris preoperatively and found to be totally occlusive postoperatively. He had a trace to mild degree of mitral valve insufficiency that
appeared to be functional which remained the same.
-Multivessel CAD S/P PCI with stent to LAD (has in-stent stenosis)
-NSTEMI
-Acute on chronic systolic heart failure
-Respiratory failure secondary to pulmonary edema and underlying pneumonia
-PNA
-ICM (EF 24%, decreased from 40%)
-T2 DM (hgb A1C 11.5)
-HTN with hypotension upon admission
-HLD
-CVA S/P ILR, residual fuzziness of peripheral vision
-Seizure d/o
-S/P Left and right heart cath, 09/19/25
-Acute postop blood loss anemia - s/p 2 pRBCs
-Acute postop thrombocytopenia
-Acute postop atelectasis
-Acute postop suspected pericarditis, + rub
-Acute postop hypovolemia with subsequent hypervolemia
-Suspected acute postop L eye abrasion - improved, pain resolved, vision intact, tx with Tobradex
-Acute postop hypotension- started on Midodrine
-Acute postop hyponatremia
-Acute postop probable left eye corneal abrasion, treated with Tobradex
Discussed patient care with: Cardiology, Nursing, Respiratory Therapy, Pharmacy and Care Team
Subjective
-
Date of Service: September 28, 2025
Pt c/o mild incisional pain, otherwise feels well
Objective Data
-
PT 19.6 Sec (11.4-14.6) H 09/24/25 12:45
INR 1.69 09/24/25 12:45
APTT 32.6 Sec (23.4-35.0) 09/24/25 12:45
Vital Signs
Vital Signs
Temp Pulse Resp BP Pulse Ox
97.8 F 78 16 103/60 96
09/28/25 00:00 09/28/25 00:00 09/28/25 00:00 09/27/25 23:00 09/28/25 00:00
CT Intake/Output/Weight
09/27/25 09/27/25 09/28/25
06:59 18:59 06:59
Intake Total 512.8 / 2069.6 218.4 / 438.0 219.6 / 438.0
Output Total 200 / 855 1550 / 1800 250 / 1800
Balance 312.8 / 1214.6 -1331.6 / -1362.0 -30.4 / -1362.0
SaO2: 96 (RA)
Physical Exam
-
General: Awake, Oriented and AOx3
Cardiovascular: Regular rate & rhythm, No Murmurs, No Rub and No Gallop
Respiratory: Decreased Breath Sounds (at bases, otherwise clear)
Sternum: Stable
Incision: Clean, Dry, Intact and Dressing Intact
Extremities: Other (+trace edema )
Data Reviewed
-
Lab Results: Results Reviewed
Medications: Active Meds Reviewed
Chest X-Ray: Report Reviewed and Image Reviewed
ECG: Report Reviewed and Image Reviewed
--- NOTE | 2025-09-28 04:26 | PTCARENOTE ---
AM labs obtained. VSS. NSR per tele monitor HR 70s. assessment remains unchanged.
[2025-09-28 05:15] LABS: Blood Urea Nitrogen 32 mg/dl (9-20); Calcium 9.4 mg/dl (8.4-10.2); Carbon Dioxide 22 mmol/L (22-30); Chloride 103 mmol/L (98-107); Estimated Creatinine Clearance 69 ml/min; Glucose 173 mg/dl (70-99); Magnesium 2.3 mg/dl (1.6-2.3); Potassium 4.5 mmol/L (3.5-5.1); Sodium 132 mmol/L (135-145); eGFR > 60.00
[2025-09-28 05:41] LABS: Hematocrit 26.7 % (39.0-52.0); Hemoglobin 9.2 g/dL (13.0-18.0); Mean Corp Hgb Conc. 34.5 g/dL (33.0-37.0); Mean Corpuscular Volume 92.4 fL (80.0-94.0); Platelet Count 204 10^3/uL (130-400); Red Cell Dist. Width 14.4 % (11.5-14.5)
[2025-09-28] MEDS: TYLENOL 975 MG PO ×3 (06:03→21:09)
--- NOTE | 2025-09-28 07:38 | W.PN.INTV ---
Today's Communication / Plan
Recommendations
Still weaning on dobutamine, going slowly due to hypotension
Encouraged continued OOB, PT, ambulation
Remains in CV per team
Assessment
-
60-year-old man with past medical history noted admitted with epigastric pain and hypoxemia. Found to have abnormal CT chest with bilateral abnormalities, increased troponins. Subsequently underwent left heart catheterization that demonstrated
multivessel coronary artery disease. Currently undergoing evaluation for coronary artery bypass.
Acute respiratory insufficiency requiring 3 L nasal cannula, resolved
Cardiogenic shock on inotrope
Non-ST elevation myocardial infarction ischemic cardiomyopathy with ejection fraction 24%. s/p CAB x 4 (In situ CUI to LAD, Ao to RSVG to OM seq to LPL, Ao to RSVG to RPDA)/Coronary endarterectomy of OM 09/24/25
Multivessel coronary artery disease s/p Cardiac catheterization 09/19/2025 w/ Severe in-stent stenosis of mid LAD stent/Elevated right and left sided filling pressures/Normal cardiac output
Abnormal CT chest: Bilateral infiltrates right greater than left-pneumonia/suspected also pulmonary edema component based on bilateral pleural effusions and enlarged lymph nodes.
Suspect heart failure/possibly pneumonia component as well.
Leukocytosis/afebrile
Conditions present prior admission:
Type 2 diabetes
History of coronary artery disease with stenting 2008
Ischemic cardiomyopathy
Essential hypertension
Hyperlipidemia
History of CVA
History of seizure disorder
Minimal bronchiectasis post pneumonia
Plan:
Transferred to CVICU -- s/p CAB x 4 POD #4
Titrate off pressors per protocol--on dobutamine, weaning slowly down
ECHO reviewed with low function- EF 24%--now >40%, improving
PAC and chest tubes are discontinued
Suspect hypoxemia multifactorial: CT chest with ground glass opacities bilaterally, bilateral pleural effusion, enlarged reactive mediastinal lymph nodes.
Rapid improvement from 09/19 to 09/22/2025 suggest pulmonary edema component. Cardiac cath also with increased left and right sided pressures.
Patient is afebrile.
All microbiology negative-including COVID, influenza, strep and Legionella antigen in urine.
Not producing sputum.
PCT neg, can stop abx
Intubated for procedure, extubated and doing well
ABG(s) reviewed/adequate
CXR with stable postop changes
Wean supplement oxygen as tolerated
Updated echocardiogram demonstrated decline in LVEF. Cardiac catheterization report noted.
Chest pain-free. Peak troponin 22. Trending lower.
Continue cardiac management
Agree with some diuresis as able
Continue with goal-directed therapy
Diet advancement
Aspiration precautions
GI prophylaxis if indicated
Monitor critical I/O's
Thornton/chest tube output
Hb/platelets postoperatively stable
Trend CBC for now
Can transfuse if indicated for Hb <7, plt <50 in surgical patients
DVT prophylaxis including SCDs
Data reviewed:
CXR 09/24/25: Lungs/Pleura: No focal airspace disease. No pleural effusions or pneumothorax. Mediastinum/Heart: Within post operative limits of normal. Multiple median sternotomy wires and mediastinal clips noted. Bones: No gross osseous
abnormality.
Echo 09/19/2025:
1. Severely reduced left ventricular systolic function. LVEF 24%.
2. Multiple left ventricular segmental wall motion abnormalities are noted, as described below.
3. No significant valvular disease.
4. Compared to prior echocardiogram in December 2023, LVEF has decreased from 44%. There was previously septal and apical hypokinesis but there is now akinesis of these segments and other new regional wall motion abnormalities.
-
CT chest 09/22/2025: There are perihilar prominent groundglass opacities which have slightly decreased from prior and may represent improving infection or edema. Increased small/moderate bilateral pleural effusions with adjacent atelectasis.
Critical Care time 31 mins -- The patient is admitted for acute critical illness for the treatment of vital organ failure and/or prevention of further life-threatening conditions. Total care includes time spent in review of history, physical exam,
medications, hemodynamic/ventilator parameters, laboratory data, imaging and discussion with house staff, pharmacy, respiratory therapy, dollyman, and nursing.
Subjective Dataa
Subjective Data
Date of Service:
Date of Service: September 28, 2025
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
Subjective:
Stable overnight, weaning slowly on dobutamine
No new complaints
Objective Data
Data Reviewed
Vital Signs / I&O / Oxygen:
Vital Signs
Temp Pulse Resp BP Pulse Ox
97.6 F 72 18 103/62 96
09/28/25 04:00 09/28/25 06:15 09/28/25 04:00 09/28/25 06:03 09/28/25 04:06
Intake and Output
09/27/25 09/28/25 09/29/25
06:59 06:59 06:59
Intake Total 2069.6 / 2069.6 482.8 / 482.8
Output Total 855 / 855 2350 / 2350
Balance 1214.6 / 1214.6 -1867.2 / -1867.2
SaO2 [CPAP] 95
SaO2 [SIMV] 97
SaO2 96
Nasal Cannula flow liters per 2
minute
Physical Exam
General: Comfortable and Good Appetite
HEENT: Normocephalic, Anicteric and Moist Mucous Membranes
Cardiovascular: S1-S2 and Regular Rhythm
Respiratory: Clear and Non-Labored Respirations
GI: Soft, Non Distended and Non Tender
Neurology: Awake, Alert, Oriented and No Motor Deficits
Skin: Warm, Dry and Good Color
Labs/Micro/Reports
Lab Data
09/28/25 04:18
09/28/25 04:18
--- NOTE | 2025-09-28 08:04 | PTCARENOTE ---
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
pt voiding yellow urine; weak lower extremity pulses noted; +1 lower extremity edema; all surgical sites C/D/I; see nursing documentation for further details.
[2025-09-28] MEDS: PROTONIX 40 MG PO (08:55)
[2025-09-28] MEDS: THERAGRAN 1 TABLET PO (08:55)
[2025-09-28] MEDS: LOW STRENGTH ASPIRIN 81 MG PO (08:55)
[2025-09-28] MEDS: PLAVIX 75 MG PO (08:55)
[2025-09-28] MEDS: FARXIGA 10 MG PO (08:55)
[2025-09-28] MEDS: BACTROBAN 2% OINTMENT 1 APPLIC NASAL (08:56)
[2025-09-28] MEDS: PACERONE 200 MG PO ×3 (08:56→21:09)
[2025-09-28] MEDS: GLUCOPHAGE 1000 MG PO ×2 (08:56→16:04)
[2025-09-28] MEDS: MUCINEX 600 MG PO ×2 (08:56→20:09)
[2025-09-28] MEDS: MAGNESIUM OXIDE 400 MG PO ×2 (08:56→20:09)
[2025-09-28] MEDS: NOVOLOG FLEXPEN-LOW RESISTANCE 1 UNITS SC (08:59)
[2025-09-28] MEDS: NOVOLOG FLEXPEN 7 UNITS SC ×3 (09:00→18:02)
[2025-09-28] MEDS: STERILE WATER FOR INJECTION IV (09:04)
[2025-09-28 09:05] LABS: Glucose - Point of Care 176 mg/dl (70-99)
[2025-09-28] MEDS: LIDOCAINE 4% PATCH TOPICAL (09:05)
[2025-09-28] MEDS: VITAMIN C 500 MG PO (09:06)
[2025-09-28] MEDS: LASIX 40 MG IV (10:59)
--- NOTE | 2025-09-28 12:00 | W.PN.CD ---
Today's Communication / Plan
-
- Wean off dobutamine
- Will try metoprolol 12.5 mg twice a day.
Impression / Plan
-
Impression/Plan: 60M with CAD/NSTEMI (2009), IDDM2, dyslipidemia, and CVA (s/p ILR) admitted with PNA complicated by NSTEMI and worsening ischemic cardiomyopathy (LVEF 40% --> 25%) with subsequent unveiling of severe, multivessel CAD, now s/p CABGx4
with Dr. Michelle 09/24/2025
Primary Video Game Creator: formerly Dr. Luna
#NSTEMI/CAD s/p CABGx4 (CUI-LAD, SVG-OM-LPL, SVG-RPDA) and left atrial appendage ligation on 09/24/[address] Michelle
- given reduced EF, there was concern Impella 5.5 would be needed post-op but patient from bypass without difficulty
- Dobutamine�wean off today. norepinephrine is off now.
- Entresto tried but developed hypotension. Currently off Entresto.
- Once dobutamine is off will start metoprolol today at 12.5 mg twice a day. May need losartan and low-dose once hemodynamically stable.
- Pain/chest tube management per CT surgery.
- Secondary prevention with aspirin, statin, ezetimibe.
- Post operative amiodarone for AF prophylaxis.
#ICM
-Chronic, worsened (LVEF 40% --> 24% --> 30-35% on dobutamine).
-Furosemide to target PAD ~20 mmHg, examines euvolemic and weight near pre-op level, PAD <20, no need for diuresis today
-GDMT as tolerated:
-Diuretic: IV furosemide to target PAD ~20 mmHg.
-Beta kristie: Carvedilol 25 mg BID on hold post op. Resume at lower dose (or metoprolol) when no longer requiring pressors/inotropes.
-SGLT2i: Restart dapagliflozin (home empagliflozin).
-BENJI/ARB/ARNI: sacubitril-valsartan -caused hypotension. Currently on dobutamine. Patient will benefit from ARB when hemodynamically stable.
-MRA: None currently. Consider spironolactone when stable post op.
-ICD: Assess post revasc / GDMT.
-Trend daily weight, I/O, & BMP with diuresis.
#Acute hypoxic respiratory insufficiency
-Acute, in the setting of pneumonia, resolved.
-COVID negative, influenza negative, Legionella negative, Strep pneumo Negative.
-Complete ABX course (ceftriaxone, doxycycline).
#IDDM2
-Chronic.
-HbA1c = 11.6%.
-The patient now has a class IA indication for GLP-1 analog medications at discharge.
-Start dapagliflozin 10 mg daily as above.
#Hypercholesterolemia
-Chronic, stable.
-Continue atorvastatin.
#History of CVA
-Chronic.
-Carotid duplex does show 50-69% LICA stenosis, <50% GALEN stenosis.
-Secondary prevention with aspirin.
#ILR
-No significant events, recently interrogated, followed in our device clinic.
Critical Care Time = 36 minutes.
Subjective/Interval History:
Patient remains on dobutamine.
Weaning of dobutamine.
Could not tolerate Entresto.
Will start metoprolol once dobutamine is off.
DATA:
CT Chest, 09/19/2025:
IMPRESSION:
No evidence of central pulmonary embolism.
Widespread bilateral predominantly groundglass opacities, most prominent in the right upper and middle lobes, mild mediastinal/hilar lymphadenopathy and small bilateral pleural effusions. Findings overall are compatible with an
inflammatory/infectious process such as pneumonia/pneumonitis.
TTE, 09/19/2025:
SUMMARY
1. Severely reduced left ventricular systolic function. LVEF 24%.
2. Multiple left ventricular segmental wall motion abnormalities are noted, as described below.
3. No significant valvular disease.
4. Compared to prior echocardiogram in December 2023, LVEF has decreased from 44%. There was previously septal and apical hypokinesis but there is now akinesis of these segments and other new regional wall motion abnormalities.
Cardiac Catheterization, 09/19/2025:
CORONARY FINDINGS
Dominance: Right
Left Main Trunk (LMT): Large caliber vessel that gives rise to the LAD and LCx branches. The terminal left main has 60% stenosis involving the ostial LAD and LCx (Pleitez 1,1,1).
Left Anterior Descending Artery (LAD): Large caliber vessel that gives off several small caliber diagonal branches as it courses along the anterior inter-ventricular groove before wrapping around the cardiac apex. The LAD has diffuse disease. The
ostial LAD has 50% stenosis, thereafter the mid-vessel is stented jailing several small diagonals which has ostial 90% stenosis. The stented segment has severe in-stent restenosis up to 95%. There is then a 95% stenosis in mid-vessel distal to the
stent involving the ostium of another small caliber diagonal which has ostial 90% stenosis. The mid to distal LAD thereafter has diffuse 50-60% stenosis to the apical LAD.
Left Circumflex Artery (LCx): Large caliber vessel that gives off a large first major obtuse marginal (OM) and a small caliber OM2 as it courses along the atrio-ventricular (AV) groove. The ostial LCx has ostial 80% stenosis. The ostial OM1 has
80% stenosis. The OM2 is severely diffusely diseased.
Right Coronary Artery (RCA): Large caliber dominant vessel that gives rise to the posterior descending artery (RPDA) and postero-lateral ventricular (RPLV) branches distally. The RCA is diffusely diseased and calcified with mid-vessel 80%
stenosis, distal 70% stenosis involving the bifurcation of the RPDA with ostial 70% stenosis.
CONCLUSIONS
1. Severe triple vessel CAD involving the RCA, left main, LAD, LCx
2. Severe in-stent restenosis of the mid-LAD stent.
3. Elevated right and left sided filling pressures, normal cardiac output.
CT Chest/Abdomen/Pelvis, 09/22/2025:
IMPRESSION:
There are perihilar prominent groundglass opacities which have slightly decreased from prior and may represent improving infection or edema. Increased small/moderate bilateral pleural effusions with adjacent atelectasis.
Mild colonic stool burden.
TTE, 09/23/2025:
SUMMARY
1. Moderately reduced left ventricular systolic function. Left ventricular ejection fraction is 30-35% by visual estimate.
2. Multiple left ventricular segmental wall motion abnormalities are noted, as described below.
3. Compared to prior echocardiogram on 09/19/2025, LVEF has increased from 24% to 30-35%.
CABG, 09/24/2025:
Procedure(s) Performed:
1. Standard Sternotomy with Aortic and Right Atrial Cannulation
2. Internal Mammary Artery Harvesting, Left
3. Coronary artery bypass grafting x 4 (In situ CUI to LAD, Ao to RSVG to OM seq to LPL, Ao to RSVG to RPDA)
4. Endoscopic vein harvesting of R and L lower extremity
5. Transesophageal echocardiography
6. Placement of Temporary Atrial Ventricular Pacing Wires
7. Left atrial appendage ligation, 35mm clip
8. Coronary endarterectomy, of the OM
Physical Exam
Vital Signs/Labs
Vital Signs
Temp Pulse Resp BP Pulse Ox
98 F 72 20 117/59 97
09/28/25 11:14 09/28/25 11:00 09/28/25 11:14 09/28/25 10:58 09/28/25 11:14
09/27/25 09/28/25 09/29/25
06:59 06:59 06:59
Actual Weight 88.6 kg 88.7 kg
09/28/25 04:18
09/28/25 04:18
PT 19.6 Sec (11.4-14.6) H 09/24/25 12:45
INR 1.69 09/24/25 12:45
APTT 32.6 Sec (23.4-35.0) 09/24/25 12:45
Magnesium 2.3 mg/dl (1.6-2.3) 09/28/25 04:18
Triglycerides 71 mg/dl (10-149) 09/19/25 04:08
LDL Cholesterol, Calc 107 mg/dl 09/19/25 04:08
VLDL Cholesterol, Calc 14 mg/dl (0-30) 09/19/25 04:08
HDL Cholesterol 45 mg/dl 09/19/25 04:08
09/19/25
04:08
[id number] Pept 583
Physical Exam
Constitutional: No acute distress and Comfortable
EENT: Moist mucous membranes
Cardiovascular: Rhythm & rate is regular, Pedal edema is absent and Systolic murmur absent
Respiratory: Respiratory effort normal and Wheeze Absent
GI: Soft and Normal bowel sounds
Other: Skin
Data Reviewed
-
Date of Service: September 28, 2025
Medical Decision Making: Reviewed Test Results, Test Interpretation and Review of Case with other Provider
EKG: Tracing Personally Visualized and interpreted
Echo: Report Reviewed by me
Labs: Labs Reviewed by me
Old Records: Reviewed
[2025-09-28 12:59] LABS: Glucose - Point of Care 211 mg/dl (70-99)
--- NOTE | 2025-09-28 13:06 | PTCARENOTE ---
NSR on monitor and VSS; assessment unchanged and pt resting comfortably in chair with family at bedside.
[2025-09-28] MEDS: NOVOLOG FLEXPEN-LOW RESISTANCE 2 UNITS SC (13:37)
[2025-09-28] MEDS: ALBUMIN 5% 250 IV (14:06)
[2025-09-28] MEDS: NSS 500 IV (14:08)
--- NOTE | 2025-09-28 16:12 | PTCARENOTE ---
NSR on monitor and VSS; assessment unchanged; labs collected and sent; pt resting comfortably in chair with family at bedside.
[2025-09-28] MEDS: NOVOLOG FLEXPEN-LOW RESISTANCE SC (17:18)
[2025-09-28 17:23] LABS: Glucose - Point of Care 92 mg/dl (70-99)
[2025-09-28] MEDS: ZETIA 10 MG PO (17:37)
[2025-09-28] MEDS: REMOVE LIDOCAINE PATCH REMOVE (20:09)
--- NOTE | 2025-09-28 20:32 | PTCARENOTE ---
received pt from previous rn. Pt AAOx4. NSR per tele monitor HR 70s. +pulses, +1 b/l LE edema. pox 98% on RA, lungs diminished at bases, occasional productive cough noted. IS 1250. +bs. pt voiding in urinal spontaneously. all surgical incisions
intact. RIJ cordis infusing KVO and Dobutamine as ordered. PIVx1 intact. Midline intact. plan of care discussed and questions encouraged. call george within reach. see worklist for full nursing assessment, I&Os, and nursing interventions.
[2025-09-28] MEDS: LIPITOR 80 MG PO (21:08)
[2025-09-28] MEDS: KEPPRA 500 MG PO (21:08)
[2025-09-28] MEDS: LANTUS 0.24 UNITS SC (21:11)
[2025-09-28 21:12] LABS: Glucose - Point of Care 89 mg/dl (70-99)
[2025-09-29] VITALS (11 sets, daily range): BP systolic 87–120; BP diastolic 53–68; PULSE 63; O2SAT 99–100; BMI 29.6
--- NOTE | 2025-09-29 00:06 | PTCARENOTE ---
Pt reassessed. pt resting in chair. VSS. NSR per tele monitor HR 60s. pox 97% on RA. Assessment remains unchanged.
--- NOTE | 2025-09-29 03:58 | W.PN.CT ---
Today's Communication / Plan
-
Plan:
-No major issues overnight. Hemodynamically and neurologically intact
-On dobutamine @ 0.5 mcg/kg/min overnight. Weaned off @ 0500 this AM
-MVO2 off cordis prior to weaning off Dobutamine: 67.9%
-Noted to be hypotensive postop, on Midodrine since 09/25. Holding BB
-D/C cordis
-Repeat echo on 09/26 showed improved LVEF of 45-50% from 30-35% on 09/23/25
-Will repeat echo again today off Dobutamine
-GDMT as tolerated, started on , will add Entresto as BP permits
-Cont current meds (Lipitor, Zetia, ASA, Plavix, Amio, Mucinex, Feosol, Protonix, Keppra)
-Diabetes education/management following, A1C 11.5
-Monitor postop hyponatremia, 131-> 132->132 ->134. Will diurese as BP allows, fluid restrict
-Temporary PW cut on 09/26 without incident
-Encourage use of IS
-OOB into chair/Ambulate
-Home later today vs tomorrow
Assessment / Plan
-
-S/p Coronary artery bypass grafting x 4 (In situ CUI to LAD, Ao to RSVG to OM seq to LPL, Ao to RSVG to RPDA); Coronary endarterectomy of the OM; Left atrial appendage ligation, 35mm clip by Dr. Michelle on 09/24/25, pod #5
-Intraop [place]: LVEF preop under anesthesia was approximately 30% with significant regional wall motion abnormalities toward the apical region. Following surgery, his EF did improve to approximate 35 to 40% while on 5 of dobutamine. There were no
new regional wall motion abnormalities. The left atrial appendage was verified to be free of any thrombus or debris preoperatively and found to be totally occlusive postoperatively. He had a trace to mild degree of mitral valve insufficiency that
appeared to be functional which remained the same.
-Multivessel CAD S/P PCI with stent to LAD (has in-stent stenosis)
-NSTEMI
-Acute on chronic systolic heart failure
-Respiratory failure secondary to pulmonary edema and underlying pneumonia
-PNA
-ICM (EF 24%, decreased from 40%)
-T2 DM (hgb A1C 11.5)
-HTN with hypotension upon admission
-HLD
-CVA S/P ILR, residual fuzziness of peripheral vision
-Seizure d/o
-S/P Left and right heart cath, 09/19/25
-Acute postop blood loss anemia - s/p 2 pRBCs
-Acute postop thrombocytopenia
-Acute postop atelectasis
-Acute postop suspected pericarditis, + rub
-Acute postop hypovolemia with subsequent hypervolemia
-Suspected acute postop L eye abrasion - improved, pain resolved, vision intact, tx with Tobradex
-Acute postop hypotension- started on Midodrine
-Acute postop hyponatremia
-Acute postop probable left eye corneal abrasion, treated with Tobradex
Discussed patient care with: Cardiology, Nursing, Respiratory Therapy, Pharmacy and Care Team
Subjective
-
Date of Service: September 29, 2025
Pt c/o mild incisional pain, otherwise feels well
Objective Data
-
PT 19.6 Sec (11.4-14.6) H 09/24/25 12:45
INR 1.69 09/24/25 12:45
APTT 32.6 Sec (23.4-35.0) 09/24/25 12:45
Vital Signs
Vital Signs
Temp Pulse Resp BP Pulse Ox
97.6 F 64 14 103/61 97
09/29/25 00:00 09/29/25 03:00 09/29/25 00:00 09/29/25 00:00 09/29/25 00:00
CT Intake/Output/Weight
09/28/25 09/28/25 09/29/25
06:59 18:59 06:59
Intake Total 264.4 / 482.8 877.2 / 962.0 84.8 / 962.0
Output Total 800 / 2350 1150 / 1150
Balance -535.6 / -1867.2 -272.8 / -188.0 84.8 / -188.0
SaO2: 97 (RA)
Physical Exam
-
General: Awake, Oriented and AOx3
Cardiovascular: Regular rate & rhythm, No Murmurs and No Gallop
Respiratory: Decreased Breath Sounds (at bases, otherwise clear )
Sternum: Stable
Incision: Clean, Dry, Intact and Dressing Intact
Extremities: Other (+trace edema)
Data Reviewed
-
Lab Results: Results Reviewed
Medications: Active Meds Reviewed
Chest X-Ray: Report Reviewed and Image Reviewed
ECG: Report Reviewed and Image Reviewed
[2025-09-29 04:31] LABS: Hematocrit 26.3 % (39.0-52.0); Hemoglobin 9.0 g/dL (13.0-18.0); Mean Corp Hgb Conc. 34.2 g/dL (33.0-37.0); Mean Corpuscular Volume 92.9 fL (80.0-94.0); Platelet Count 239 10^3/uL (130-400); Red Cell Dist. Width 14.4 % (11.5-14.5)
--- NOTE | 2025-09-29 04:34 | PTCARENOTE ---
pt reassessed. AM labs sent. VSS. NSR per tele monitor HR 60-70s. assessment unchanged
[2025-09-29 05:46] LABS: Blood Urea Nitrogen 27 mg/dl (9-20); Calcium 8.8 mg/dl (8.4-10.2); Carbon Dioxide 22 mmol/L (22-30); Chloride 105 mmol/L (98-107); Estimated Creatinine Clearance 84 ml/min; Glucose 87 mg/dl (70-99); Potassium 4.5 mmol/L (3.5-5.1); Sodium 134 mmol/L (135-145); eGFR > 60.00
[2025-09-29] MEDS: TYLENOL 975 MG PO ×3 (06:35→20:31)
[2025-09-29] MEDS: STERILE WATER FOR INJECTION IV (07:30)
--- NOTE | 2025-09-29 07:44 | W.PN.CD ---
Today's Communication / Plan
-
repeat TTE off dobutamine
resume low dose metop, further GDMT as outpatient
Impression / Plan
-
Impression/Plan: 60M with CAD/NSTEMI (2009), IDDM2, dyslipidemia, and CVA (s/p ILR) admitted with PNA complicated by NSTEMI and worsening ischemic cardiomyopathy (LVEF 40% --> 25%) with subsequent unveiling of severe, multivessel CAD, now s/p CABGx4
with Dr. Michelle 09/24/2025
Primary Information Systems Coordinator: formerly Dr. Luna
#NSTEMI/CAD s/p CABGx4 (CUI-LAD, SVG-OM-LPL, SVG-RPDA) and left atrial appendage ligation on 09/24/[address] Michelle
- given reduced EF, there was concern Impella 5.5 would be needed post-op but patient from bypass without difficulty
- Dobutamine�weaned off this morning 09/29.
- Entresto tried but developed hypotension. Currently off Entresto. On Farxiga. On midodrine.
- Secondary prevention with aspirin, Plavix (1 year for NSTEMI), statin, ezetimibe.
- Post operative amiodarone for AF prophylaxis.
#ICM
-Chronic, worsened (LVEF 40% --> 24% --> 30-35% on dobutamine). Repeat TTE off dobutamine pending.
-GDMT as tolerated:
-Diuretic: PRN, still 3 kg above pre op weight but examines euvolemic and CXR clear, can adjust oral diuretic as outpatient as needed
-Beta kristie: Resume low dose metoprolol
-SGLT2i: Cont dapa
-BENJI/ARB/ARNI: sacubitril-valsartan -caused hypotension. consider low dose valsartan/Entresto as outpatient as tolerated by BP
-MRA: None currently. Consider spironolactone as outpatient
-ICD: Assess post revasc / GDMT. EF suggests unlikely to be indicated
-Trend daily weight, I/O, & BMP with diuresis.
#Acute hypoxic respiratory insufficiency
-Acute, in the setting of pneumonia, resolved.
-COVID negative, influenza negative, Legionella negative, Strep pneumo Negative.
-Complete ABX course (ceftriaxone, doxycycline).
#IDDM2
-Chronic.
-HbA1c = 11.6%.
-The patient now has a class IA indication for GLP-1 analog medications at discharge.
-Cont. dapagliflozin 10 mg daily as above.
#Hypercholesterolemia
-Chronic, stable.
-Continue atorvastatin.
#History of CVA
-Chronic.
-Carotid duplex does show 50-69% LICA stenosis, <50% GALEN stenosis.
-Secondary prevention with aspirin.
#ILR
-No significant events, recently interrogated, followed in our device clinic.
Subjective/Interval History:
Patient off dobutamine, felt well ambulating to bathroom
Tele sinus rhythm
CXR today with resolving LLL atelectasis
DATA:
CT Chest, 09/19/2025:
IMPRESSION:
No evidence of central pulmonary embolism.
Widespread bilateral predominantly groundglass opacities, most prominent in the right upper and middle lobes, mild mediastinal/hilar lymphadenopathy and small bilateral pleural effusions. Findings overall are compatible with an
inflammatory/infectious process such as pneumonia/pneumonitis.
TTE, 09/19/2025:
SUMMARY
1. Severely reduced left ventricular systolic function. LVEF 24%.
2. Multiple left ventricular segmental wall motion abnormalities are noted, as described below.
3. No significant valvular disease.
4. Compared to prior echocardiogram in December 2023, LVEF has decreased from 44%. There was previously septal and apical hypokinesis but there is now akinesis of these segments and other new regional wall motion abnormalities.
Cardiac Catheterization, 09/19/2025:
CORONARY FINDINGS
Dominance: Right
Left Main Trunk (LMT): Large caliber vessel that gives rise to the LAD and LCx branches. The terminal left main has 60% stenosis involving the ostial LAD and LCx (Pleitez 1,1,1).
Left Anterior Descending Artery (LAD): Large caliber vessel that gives off several small caliber diagonal branches as it courses along the anterior inter-ventricular groove before wrapping around the cardiac apex. The LAD has diffuse disease. The
ostial LAD has 50% stenosis, thereafter the mid-vessel is stented jailing several small diagonals which has ostial 90% stenosis. The stented segment has severe in-stent restenosis up to 95%. There is then a 95% stenosis in mid-vessel distal to the
stent involving the ostium of another small caliber diagonal which has ostial 90% stenosis. The mid to distal LAD thereafter has diffuse 50-60% stenosis to the apical LAD.
Left Circumflex Artery (LCx): Large caliber vessel that gives off a large first major obtuse marginal (OM) and a small caliber OM2 as it courses along the atrio-ventricular (AV) groove. The ostial LCx has ostial 80% stenosis. The ostial OM1 has
80% stenosis. The OM2 is severely diffusely diseased.
Right Coronary Artery (RCA): Large caliber dominant vessel that gives rise to the posterior descending artery (RPDA) and postero-lateral ventricular (RPLV) branches distally. The RCA is diffusely diseased and calcified with mid-vessel 80%
stenosis, distal 70% stenosis involving the bifurcation of the RPDA with ostial 70% stenosis.
CONCLUSIONS
1. Severe triple vessel CAD involving the RCA, left main, LAD, LCx
2. Severe in-stent restenosis of the mid-LAD stent.
3. Elevated right and left sided filling pressures, normal cardiac output.
CT Chest/Abdomen/Pelvis, 09/22/2025:
IMPRESSION:
There are perihilar prominent groundglass opacities which have slightly decreased from prior and may represent improving infection or edema. Increased small/moderate bilateral pleural effusions with adjacent atelectasis.
Mild colonic stool burden.
TTE, 09/23/2025:
SUMMARY
1. Moderately reduced left ventricular systolic function. Left ventricular ejection fraction is 30-35% by visual estimate.
2. Multiple left ventricular segmental wall motion abnormalities are noted, as described below.
3. Compared to prior echocardiogram on 09/19/2025, LVEF has increased from 24% to 30-35%.
CABG, 09/24/2025:
Procedure(s) Performed:
1. Standard Sternotomy with Aortic and Right Atrial Cannulation
2. Internal Mammary Artery Harvesting, Left
3. Coronary artery bypass grafting x 4 (In situ CUI to LAD, Ao to RSVG to OM seq to LPL, Ao to RSVG to RPDA)
4. Endoscopic vein harvesting of R and L lower extremity
5. Transesophageal echocardiography
6. Placement of Temporary Atrial Ventricular Pacing Wires
7. Left atrial appendage ligation, 35mm clip
8. Coronary endarterectomy, of the OM
Physical Exam
Vital Signs/Labs
Vital Signs
Temp Pulse Resp BP Pulse Ox
36.6 C 67 16 120/60 97
09/29/25 04:00 09/29/25 06:30 09/29/25 04:00 09/29/25 04:17 09/29/25 04:06
09/28/25 09/29/25 09/30/25
06:59 06:59 06:59
Actual Weight 88.7 kg 88.3 kg
09/29/25 04:16
09/29/25 04:16
PT 19.6 Sec (11.4-14.6) H 09/24/25 12:45
INR 1.69 09/24/25 12:45
APTT 32.6 Sec (23.4-35.0) 09/24/25 12:45
Magnesium 2.3 mg/dl (1.6-2.3) 09/28/25 04:18
Triglycerides 71 mg/dl (10-149) 09/19/25 04:08
LDL Cholesterol, Calc 107 mg/dl 09/19/25 04:08
VLDL Cholesterol, Calc 14 mg/dl (0-30) 09/19/25 04:08
HDL Cholesterol 45 mg/dl 09/19/25 04:08
09/19/25
04:08
Eyr-T-Tjwzlzxrqgs Pept 583
Physical Exam
Constitutional: Comfortable
Cardiovascular: Rhythm & rate is regular
Respiratory: Respiratory effort normal
Neuro/Psych: AO x 3
Data Reviewed
-
Date of Service: September 29, 2025
Medical Decision Making: Reviewed Test Results
EKG: Tracing Personally Visualized and interpreted
X-Ray/CT/US/MRI/NUC/PET: Image Personally Visualized and interpreted
Labs: Labs Ordered by me
--- NOTE | 2025-09-29 08:37 | PN.DE.MGMTRT ---
Insulin Management
- -
09/29/2025: Diabetes Management Follow up
Patient admitted 09/19 with breathing problem -Acute on chronic HF and pneumonia. Diabetes Management consult 09/25.
PMH: CAD/NM with decreased EF 2008, seizure disorder, HLD, HTN, CVA and T2DM. On admission patient had L heart cath -severe triple vessel CAD. 09/23 R heart cath. Prior to admission was taking Lantus 24 units @ HS with Metformin 1000 mg BID. A1C on
admission 11.5%, Cr .9, eGFR > 60 today.
Patient is awake alert and oriented, up ambulating with PT, able to discuss diabetes care. POD # 5 s/p CABG x 4.
States he has had diabetes ~ 30 years. Had insurance issues in the last year so obtaining medications and seeing providers was not possible.
In the past he has taken Lantus at hs with AC NovoLog and Jardiance and metformin. He states he has Jardiance at home. States in the past he has seen Dr. Martinez and has an appointment set up for 10/20.
Patient transitioned off glycemic protocol on 09/26 to SQ insulin.
09/27 Glucose trended up to 242, AC dose was increased to 7 units, improved to glucose range of 92 to 211. HS glucose was 89, fasting 87 V, 92 POC today.
Will cont Farxiga 10mg (Jardiance at d/c), Lantus 24 units @ HS, AC NovoLog 7 units Metformin 1000 mg BID and low corrective with meals.
Patient will be seen by the Diabetes Nurse Educator for CGM- Gladis 3+ sensor today.
Discussed with nurse. Will cont to follow.
Diabetes History
- -
Type of Diabetes: 2 requiring insulin
Pre-Admission Diabetes Regimen
09/29/25
04:16
Creatinine 0.9
Lab Results
Hemoglobin A1c Cancelled 09/19/25 07:55
Insulin Pump Settings
IP Diabetes Regimen
09/28/25 09/28/25 09/28/25
08:58 12:57 17:16
Glucose
POC Glucose 176 H 211 H 92
09/28/25 09/29/25
21:11 04:16
Glucose 87
POC Glucose 89
Meal type: Breakfast
Amount consumed: 100%
Patient Education
[2025-09-29] MEDS: LIDOCAINE 4% PATCH TOPICAL (08:57)
[2025-09-29] MEDS: NOVOLOG FLEXPEN-LOW RESISTANCE SC ×2 (09:11→17:37)
[2025-09-29] MEDS: NOVOLOG FLEXPEN 7 UNITS SC (09:11)
[2025-09-29] MEDS: PACERONE 200 MG PO ×3 (09:13→20:31)
[2025-09-29] MEDS: GLUCOPHAGE 1000 MG PO ×2 (09:13→17:35)
[2025-09-29] MEDS: LOW STRENGTH ASPIRIN 81 MG PO (09:13)
[2025-09-29] MEDS: VITAMIN C 500 MG PO (09:14)
[2025-09-29] MEDS: FARXIGA 10 MG PO (09:14)
[2025-09-29] MEDS: PROTONIX 40 MG PO (09:14)
[2025-09-29] MEDS: MAGNESIUM OXIDE 400 MG PO ×2 (09:14→20:31)
[2025-09-29] MEDS: LOPRESSOR 12.5 MG PO (09:14)
[2025-09-29] MEDS: MUCINEX PO ×2 (09:15→20:30)
[2025-09-29] MEDS: PLAVIX 75 MG PO (09:15)
[2025-09-29] MEDS: THERAGRAN 1 TABLET PO (09:15)
[2025-09-29 09:18] LABS: Glucose - Point of Care 102 mg/dl (70-99)
--- NOTE | 2025-09-29 09:18 | PTCARENOTE ---
Patient received from manager spanish resting in bed, AAO x 3, denies pain. NSR via cm, SaO2 @ 98% on RA. RIJ Cordis w/kvo infusing. RUE midline present. All procedural sites stable. Dr. Michelle and CT team to bedside for am rounds - follow up echo in
progress. Patient updated to plan of care for the day, in agreement. Assisted oob to chair w/minimal assist. See work list for full assessment and interventions performed.
[2025-09-29 09:47] LABS: B.E. - POC 0.5 mmol/L; Glucose - POC 119 mg/dl (70-99); HCO3 - POC 25 mmol/L (21-28); Hematocrit - POC 24 % PCV (42-52); Hemodilution- POC Yes; Hemoglobin Calculated - POC 8.2; Ionized Calcium - POC 1.28 mmol/L (1.15-1.33); Lactate - POC 1.69 mmol/L (0.36-0.75); O2 Saturation %Calculated-POC 99.9 % (94-98); PCO2 - POC 38 mmHg (35-48); PO2 - POC 294 mmHg (83-108); POC Comment POST; Potassium - POC 3.9 mmol/L (3.5-5.1); Sodium - POC 141 mmol/L (136-145); Specimen Type - POC Arterial; pH - POC 7.43 (7.35-7.45)
--- NOTE | 2025-09-29 11:36 | CM ---
dc plans remain home when medically stable and f/u visit fro the ct transitional care nurse
--- NOTE | 2025-09-29 12:21 | PTCARENOTE ---
09/29/2025 DIABETES EDUCATION CONSULT
I met with patient to review diabetes management. IP for CABG, has had DM for years. 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 He thinks this may have played a role into his
current health status.
I educated on physiology of T2D, organ damage, managing with medications, monitoring BG, nutrition, activity, sleep and managing stress. I reinforced signs of hyperglycemia, hypoglycemia and hypoglycemia protocol; BS parameters and recommended HbA1c
goals, glucometer and CGM instructions, glucose tracker, medic alert bracelet and outpatient DSME program. Written material provided.
His PCP in the past prescribed Dexcom CGM, but he never used. Plans to follow up with Dr. Michelle quezada Endo on 10/20/2025. He also took Lantus (vial) and Novolog pen in the past.
Mr. Sutton has a Contour Next glucometer at home with supplies, admits that his test strips may be . I provided patient with a Contour Next Gen glucometer sample kit. Denies need for glucometer demonstration. Will request a prescription for
test strips and lancets.
I educated on insulin injection technique, timing, and storage. Discussed long and short acting insulin; onset/peak/duration, and encouraged her to administer self injections with RN supervision while admitted. Discussed normal target glucose
ranges and a monitoring schedule 15 minutes before each meal when prescribed Novolog, and before bedtime. He declined need for demonstration as he has taken these medications in the past.
I provided Mr. Sutton with Freestyle Gladis 3+ CGM, assisted him with isela set up and CGM placement. Provided education that warm up is 60 minutes, results on CGM are not accurage for 24 hours, reporting functions in the isela, parameters of 70-180
mg/dL, CGM data can be 15% different because it sits in interstitial fluid vs. blood, and to double check CGM reading with a fingerstick with low BS < 70 mg/dL.
Encouraged patient to follow up with PCP and endocrinology for post d/c appointment and to monitor medication and blood glucose levels. Patient verbalized understanding.
--- NOTE | 2025-09-29 12:23 | PTCARENOTE ---
VS obtained, assessment stable. SBP 90's, patient denies any lightheadedness. Denies pain.
[2025-09-29 13:28] LABS: Glucose - Point of Care 165 mg/dl (70-99)
[2025-09-29] MEDS: NOVOLOG FLEXPEN SC ×2 (13:38→17:37)
[2025-09-29] MEDS: NOVOLOG FLEXPEN-LOW RESISTANCE 1 UNITS SC (13:47)
[2025-09-29] MEDS: NOVOLOG FLEXPEN 5 UNITS SC (13:47)
[2025-09-29] MEDS: NSS IV (14:01)
--- NOTE | 2025-09-29 15:50 | PTCARENOTE ---
VS obtained, assessment stable. Patient resting comfortably. GARO updated to current BP.
[2025-09-29] MEDS: LASIX 40 MG IV (15:54)
[2025-09-29 17:34] LABS: Glucose - Point of Care 86 mg/dl (70-99)
[2025-09-29] MEDS: ZETIA 10 MG PO (17:35)
[2025-09-29] MEDS: REMOVE LIDOCAINE PATCH REMOVE (20:30)
[2025-09-29] MEDS: LIPITOR 80 MG PO (20:31)
[2025-09-29] MEDS: KEPPRA 500 MG PO (20:31)
[2025-09-29] MEDS: LANTUS 0.24 UNITS SC (20:44)
[2025-09-29 20:46] LABS: Glucose - Point of Care 133 mg/dl (70-99)
--- NOTE | 2025-09-30 | PTCARENOTE ---
report received from previous RN, walking rounds done. pt in chair, AAOX4, denies any pain. VSS. NSR on monitor, HR 60s. +peripheral pulses. B/L breath sounds present. POX 99% on room air. +BS. pt voids spontaneously. RUE midline present and patent.
all surgical sites stable. see worklist for full assessment, VS, and interventions.
[2025-09-30 00:27] VITALS: BP 103/54
--- NOTE | 2025-09-30 04:37 | W.PN.CT ---
Today's Communication / Plan
-
Plan:
-No major issues overnight. Hemodynamically and neurologically intact
-Weaned off of Dobutamine yesterday 09/29/25
-Noted to be hypotensive postop, improved Midodrine placed on PRN. Did not tolerate Metoprolol tartrate yesterday
-Will try Metoprolol succinate today. Was on Carvedilol at home
-Repeat echo on 09/29 off dobutamine showed LVEF of 35-40%, improved compared to preop echo showing LVEF of 30-35% on 09/23/25
-GDMT as tolerated, started on Farxiga, will add Entresto as BP permits, likely as an outpt
-Cont current meds (Lipitor, Zetia, ASA, Plavix, Amio, Mucinex, Farxiga, Protonix, Keppra)
-Diabetes education/management following, A1C 11.5
-Postop hyponatremia has resolved, 131-> 132->132 ->134 -> 135. Gentle diuresis, fluid restriction
-Temporary PW cut on 09/26 without incident
-Encourage use of IS
-F/U 2-view cxr today
-OOB into chair/Ambulate
-Home today
Assessment / Plan
-
-S/p Coronary artery bypass grafting x 4 (In situ CUI to LAD, Ao to RSVG to OM seq to LPL, Ao to RSVG to RPDA); Coronary endarterectomy of the OM; Left atrial appendage ligation, 35mm clip by Dr. Michelle on 09/24/25, pod #6
-Intraop [place]: LVEF preop under anesthesia was approximately 30% with significant regional wall motion abnormalities toward the apical region. Following surgery, his EF did improve to approximate 35 to 40% while on 5 of dobutamine. There were no
new regional wall motion abnormalities. The left atrial appendage was verified to be free of any thrombus or debris preoperatively and found to be totally occlusive postoperatively. He had a trace to mild degree of mitral valve insufficiency that
appeared to be functional which remained the same.
-Multivessel CAD S/P PCI with stent to LAD (has in-stent stenosis)
-NSTEMI
-Acute on chronic systolic heart failure
-Respiratory failure secondary to pulmonary edema and underlying pneumonia
-PNA
-ICM (EF 24%, decreased from 40%)
-T2 DM (hgb A1C 11.5)
-HTN with hypotension upon admission
-HLD
-CVA S/P ILR, residual fuzziness of peripheral vision
-Seizure d/o
-S/P Left and right heart cath, 09/19/25
-Acute postop blood loss anemia - s/p 2 pRBCs
-Acute postop thrombocytopenia
-Acute postop atelectasis
-Acute postop suspected pericarditis, + rub
-Acute postop hypovolemia with subsequent hypervolemia
-Suspected acute postop L eye abrasion - improved, pain resolved, vision intact, tx with Tobradex
-Acute postop hypotension- started on Midodrine
-Acute postop hyponatremia
-Acute postop probable left eye corneal abrasion, treated with Tobradex
Discussed patient care with: Cardiology, Nursing, Respiratory Therapy, Pharmacy and Care Team
Subjective
-
Date of Service: September 30, 2025
Pt offers no complaints, feels well. Ambulating halls without difficulty
Objective Data
-
PT 19.6 Sec (11.4-14.6) H 09/24/25 12:45
INR 1.69 09/24/25 12:45
APTT 32.6 Sec (23.4-35.0) 09/24/25 12:45
Vital Signs
Vital Signs
Temp Pulse Resp BP Pulse Ox
97.8 F 68 18 111/60 99
09/29/25 20:00 09/29/25 20:15 09/29/25 20:00 09/29/25 19:38 09/29/25 22:34
CT Intake/Output/Weight
09/29/25 09/29/25 09/30/25
06:59 18:59 06:59
Intake Total 126.0 / 1013.2 580 / 580
Output Total 200 / 1350 825 / 1050 225 / 1050
Balance -74.0 / -336.8 -245 / -470 -225 / -470
SaO2: 99 (RA)
Physical Exam
-
General: Awake, Oriented and AOx3
Cardiovascular: Regular rate & rhythm, No Murmurs, No Rub and No Gallop
Respiratory: Decreased Breath Sounds (at bases, otherwise clear )
Sternum: Stable
Incision: Clean, Dry, Intact and Dressing Intact
Extremities: Other (+trace edema )
Data Reviewed
-
Lab Results: Results Reviewed
Medications: Active Meds Reviewed
Chest X-Ray: Report Reviewed and Image Reviewed
CT Scan: Report Reviewed and Image Reviewed
ECG: Report Reviewed and Image Reviewed
[2025-09-30 04:52] VITALS: BP 113/66
--- NOTE | 2025-09-30 05:00 | PTCARENOTE ---
no acute changes in assessment, VSS. NSR 60s. POX 97% on room air. AM labs drawn and sent. pt sleeping between care.
[2025-09-30 05:07] LABS: Hematocrit 25.6 % (39.0-52.0); Hemoglobin 8.6 g/dL (13.0-18.0); Mean Corp Hgb Conc. 33.6 g/dL (33.0-37.0); Mean Corpuscular Volume 93.8 fL (80.0-94.0); Platelet Count 260 10^3/uL (130-400); Red Cell Dist. Width 14.6 % (11.5-14.5)
[2025-09-30 05:26] LABS: Blood Urea Nitrogen 28 mg/dl (9-20); Calcium 8.8 mg/dl (8.4-10.2); Carbon Dioxide 25 mmol/L (22-30); Chloride 105 mmol/L (98-107); Estimated Creatinine Clearance 76 ml/min; Glucose 106 mg/dl (70-99); Magnesium 2.0 mg/dl (1.6-2.3); Potassium 4.8 mmol/L (3.5-5.1); Sodium 135 mmol/L (135-145); eGFR > 60.00
[2025-09-30 06:00] VITALS: BMI 29.6
[2025-09-30] MEDS: TYLENOL PO (06:22)
[2025-09-30 08:17] VITALS: BP 105/58
[2025-09-30] MEDS: THERAGRAN 1 TABLET PO (08:19)
[2025-09-30] MEDS: TOPROL XL 12.5 MG PO (08:19)
[2025-09-30] MEDS: VITAMIN C 500 MG PO (08:19)
[2025-09-30] MEDS: PLAVIX 75 MG PO (08:19)
[2025-09-30] MEDS: LOW STRENGTH ASPIRIN 81 MG PO (08:19)
[2025-09-30] MEDS: FARXIGA 10 MG PO (08:19)
[2025-09-30] MEDS: PROTONIX 40 MG PO (08:19)
[2025-09-30] MEDS: LASIX 40 MG PO (08:19)
[2025-09-30] MEDS: GLUCOPHAGE 1000 MG PO (08:19)
[2025-09-30] MEDS: MAGNESIUM OXIDE 400 MG PO (08:19)
[2025-09-30] MEDS: PACERONE 200 MG PO (08:19)
[2025-09-30] MEDS: MUCINEX 600 MG PO (08:19)
--- NOTE | 2025-09-30 08:31 | W.DCSUMMARY ---
Discharge Summary
Discharge Data
Date of Admission: 09/19/25
Date of Discharge: 09/30/25
-
Pending Results: No
Hospital Course
Primary care physician: ROSALEE Orr
Outpatient beauty school instructor: Kashif Soliz MD
Inpatient consultants: [facility]iology, Pulmonary Medicine/Entry Examiner, Hospitalist, Anesthesia, Diabetic Nurse Practitioner
Procedures:
1. CABG x 4 (CUI-LAD, Ao-RSVG-OM seq to LPL, Ao to RSVG to RPDA), Coronary endarterectomy of OM, YAZAN Ligation (35 mm Clip) on 09/24/[address] Hunter Michelle
Primary Diagnosis:
1. NSTEMI
Secondary Diagnoses:
1. 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
2. Acute on chronic systolic heart failure
3. Respiratory failure secondary to pulmonary edema and underlying pneumonia
4. PNA
5. Ischemic cardiomyopathy (EF 24%, decreased from 40%)
6. T2DM (Hgb A1C 11.5%)
7. Hypertension
8. Hyperlipidemia
9. CVA s/p ILR, residual fuzziness of peripheral vision
10. Seizure disorder
11. LINQ implant
HPI: Mr Saad Sutton is a 60-year-old male with PMHx of CAD s/p PCI (NSTEMI, 2008), LINQ implant for A-Fib concern, HTN, HLD, T2DM, bronchiectatic disease, prior CVA with seizer disorder who presented to [facility] ED with sudden onset of epigastric
discomfort following his Thanksgiving meal. He further endured a persistent cough overnight with orthopnea. He reported recently traveling to [place] 2-weeks prior to his onset of symptoms. Within the ED, CT chest was negative for PE but
revealed ground-glass opacities and B/L pleural effusions concerning for infectious process. Cardiology was consulted for abnormal troponin and ST depression on EKG in which patient underwent R/LHC showing severe triple-vessel CAD involving RCA, LM,
LAD, with in-stent restenosis of the mid-LAD stent; in addition to elevated right and left-sided filling pressures with normal CO. CT Surgery was consulted due to being poor PCI candidate due to high SYNTAX score (> 32), severe in-stent restenosis
with the LAD, and the presence of triple vessel disease. He was determined to be suitable for CABG.
Hospital course: Patient presented to ED on 09/19/25 with complaints of epigastric pain, cough, and orthopnea. He reported recent travel 2-weeks prior to onset of symptoms. Upon ED arrival, CT chest was negative for PE and showed ground-glass
opacities and B/L pleural effusions. D-dimer was abnormal at 0.98 and lactate at 1.5. Troponin's were elevated at 2.210, Pro-BNP 583, and ST depression was present on EKG. Cardiology was consulted for further evaluation. Patient ruled-in for NSTEMI
(Troponin peak 22.6 on 09/19/25) secondary to demand ischemia in setting of pneumonia with acute hypoxic respiratory failure and CHF exacerbation. Patient was initiated on brief course of ABX for suspected PNA then discontinued with resulting
microbiology being negative (COVID, influenza, strep, and legionella antigen in urine).
On 09/19/25, R/LHC with Dr. Luis reported severe triple-vessel CAD involving RCA, LM, LAD, with in-stent restenosis of the mid-LAD stent; in addition to elevated right and left-sided filling pressures with normal CO. TTE 09/20/25 reported LVEF 24%,
akinetic mid and apical anterior and inferior septum, apical anterior and inferior septum, apical inferior segment, and apex, hypokinetic anterior wall, basal and mid inferior hui, basal anteroseptal segment, basal inferoseptal segment, mid
inferolateral segment, and apical later segment, trace AI, mild MR, no TR, and no AL. Cardiac surgery was consulted for CABG evaluation due to being poor PCI candidate due to high SYNTAX score (>32), severe in-stent restenosis with LAD, and
presented of triple vessel disease. On 09/23/25, patient underwent a RHC with Dr. Willis with placement of Leeds-Jhonny catheter for diuretic therapy. RHC reported RA 12, PAP 49/25, PCWP 24, SVO2 64.4%, CO/CI 5.62/2.83. Patient was initiated on a
dobutamine infusion preoperatively with a repeat TTE reporting LVEF of 30-35%.
Patient went to [facility] on 09/25/25 and underwent a CABG x 4 (CUI-LAD, Ao-RSVG-OM seq to LPL, Ao to RSVG to RPDA), coronary endarterectomy of OM, YAZAN Ligation (35 mm Clip) with Dr. Hunter Michelle. Please see surgeons dictated report for complete details
regarding surgery. Intraoperative PARIS reported LVEF 37% with dobutamine at 3 mcg/kg/min. In progressive fashion, central lines, chest tubes, urinary catheter, epicardial pacing wires, and vasopressor/inotropic support were discontinued.
Postoperatively, patient was maintained on inotropic support until postoperative day 3. Repeat TTE 09/26/25 with dobutamine at 1.5 mcg/kg/min reported LVEF of 45-50%, akinesis of mid to apical septum with hypokinesis of the apex and apical
anterolateral wall with improvement to wall motion abnormalities. TTE on 09/29/25 with dobutamine infusion off reported LVEF of 35-40%. Patient was transitioned from an insulin drip postoperatively in collaboration with the Diabetic Nurse
Practitioner team. He was ultimately discharged home with Lantus 24 units HS, Humalog 5 units TID before meals, Metformin 1000 mg BID, and Farxiga 10 mg daily.
Postoperative course was complicated by acute postop blood-loss anemia in which he received a total of 2 units of PRBC's. Patient was suspected to have an acute postop left eye abrasion which improved with Tobradex, he did not endure any visual
changes. Course was further complicated by hypovolemia with subsequent hypervolemia in which the patient was diuresed with IV Lasix. Upon discharge, patient was to remain on Lasix 40 mg daily without electrolyte replacement. Patient maintained a K+
of 4.5 on diuretic therapy without supplementation. He was ordered a BMP to be obtained within 1-week from discharge to assess electrolyte replacement. He was further instructed to monitor his morning weights. His weight upon discharge was 88.2 kg
with preoperative weight of 85.7 kg. Postoperatively, patient was initiated on Toprol XL 12.5 mg daily upon discontinuation of dobutamine drip. Patient tolerated beta-kristie therapy well with SBP trending 100-110's prior to discharge. Entresto was
trialed and discontinued due to hypotension. Consideration of Entresto and MRA should be considered upon outpatient Cardiology follow-up.
On postoperative day 6, patient was ambulating, tolerating steps, and tolerating his diet. He obtained a 2-view CXR which showed small left pleural effusion with mild atelectasis. He denied dyspnea upon exertion. He was encouraged to continue his IS
upon discharge. He was discharged home with a pain regiment of Tylenol 650 mg q4h PRN for mild pain and Oxycodone 2.5-5 mg q6h PRN for moderate pain. He was continued on DAPT with ASA 81 mg daily and Plavix 75 mg daily for 1-year secondary to
NSTEMI. He received an outpatient follow-up appointment with Cardiology and Cardiac Surgery. He will be further followed by the Transitional Care Nursing team upon discharge.
Home medication changes:
- See list provided below.
- Consideration of Entresto and MRA (spironolactone) should be considered upon outpatient follow-up; held due to postoperative hypotension.
- Continue Plavix 75 mg daily for 1-year due to NSTEMI.
Discharge Plan
-
Patient Disposition: Home (Routine Discharge)
Discharge Diagnosis/Procedures: NSTEMI, Coronary Artery Disease, Pneumonia s/p CABG x 4, left atrial appendage clip (09/24/25) with Dr. Hunter Michelle
Condition: Good
Diet: Low Cholesterol, Low Sodium and Diabetic, Carb Controlled
Activity: No strenuous activity
Additional Activity: No heavy lifting, pushing, or pulling anything greater than 15 pounds for 1-month
Can use stairs as tolerated
Driving Restrictions: Not until seen by your Dr
Bathing Restrictions: OK to Shower
Blood Work: Repeat BMP in 1-week to evaluate electrolytes while on diuretic therapy (furosemide (Lasix)).
Other Services: Cardiac Rehab
Wound Care: No lotions, creams, or powders to procedural sites
Shower daily with soap and water
Specialty Instructions: Weigh Daily- Call MD for wt gain/loss 3 lbs overnight/5 lbs in 1 week
Activity Restrictions/Additional Instructions:
ACTIVITY:
-No strenuous activity: no heavy lifting, pushing, pulling anything over 15 pounds for one month
-Continue to use stairs as tolerated
DRIVING RESTRICTIONS:
-No driving for one month or until approved by your surgeon
WOUND CARE:
-Shower daily. Use soap & water.
-No lotions, creams or powders on incision area.
DIET:
-Continue a low fat/low cholesterol diet.
-If you are diabetic, continue carb controlled diet.
CARDIAC REHAB:
-Please make appointment to start in 5-6 weeks with your local hospital program. (See Cardiac Rehabilitation Discharge Booklet).
SPECIALTY INSTRUCTIONS:
-Weigh yourself daily. Call your physician for any weight gain/loss of 3 lbs overnight or 5 lbs in one week.
-REPORT any clicking noise or uneven appearance of your sternum to your surgeon immediately.
-If you smoke, you are instructed to quit. The [place] smoking hotline phone number is [phone]
Stand Alone Forms: DC Instructions- Cath/EP Lab
Referrals:
CT Transitional Care Nurse [Outside]
Referral Note: The Cardiothoracic Transitional Care Nurse will call you to set up a visit in 1-2 days.
[facility] [Outside] - 10/31/25 9:30 am
Referral Note: Cardiac Rehab Orientation appointment is on 10/31/2025 at 9:30am.
The Cardiac Rehab gym is located on the first floor of the [facility].
Emily Verduzco CRNP [Specified Professional Personl, Cardiology] - 11/13/25 8:40 am
Milka Ceballos CRNP [Family Provider, Pulmonary Medicine]
BlancaAlba CRNP [Specified Professional Personl, Cardiac Surgery] - 10/30/25 10:00 am
Prescriptions:
New
dapagliflozin propanediol 10 mg Tablet
10 mg PO DAILY Qty: 30 1RF
furosemide 40 mg Tablet
40 mg PO DAILY Qty: 14 0RF
clopidogrel 75 mg Tablet
75 mg PO DAILY Qty: 30 1RF
acetaminophen 325 mg Tablet
650 mg PO Q4HPRN PRN (Reason: mild pain,headache,temp >101F ) Qty: 0 0RF
pantoprazole 40 mg Tablet,Delayed Release (Dr/Ec)
40 mg PO DAILY Qty: 30 0RF
metoprolol succinate 25 mg Tablet Extended Release 24 Hr
12.5 mg PO DAILY Qty: 30 1RF
oxycodone 5 mg Tablet
2.5 - 5 mg PO Q6HPRN PRN (Reason: moderate pain unalleviated by Tylenol) Qty: 7 0RF
insulin lispro [Humalog KwikPen Insulin] 100 unit/mL insulin pen
5 unit SC TID Qty: 15 0RF
(DME) pen needle, diabetic 32 gauge x 5/32' needle
See Rx Instructions .Route Qty: 100 1RF
Rx Instructions:
As directed
metformin 1,000 mg Tablet
1,000 mg PO BID@0800,1700 Qty: 30 1RF
Continued
insulin glargine [Lantus U-100 Insulin] 100 UNITS/1 ML solution
24 unit SC HS
cyanocobalamin (vitamin B-12) 1,000 mcg Tablet
1,000 mcg PO DAILY
therapeutic multivitamin Tablet
1 tab PO DAILY
calcium carbonate 500 mg calcium (1,250 mg) Tablet
500 mg PO DAILY
cholecalciferol (vitamin D3) [Vitamin D3] 25 mcg (1,000 unit) Tablet
25 mcg PO DAILY
atorvastatin [Lipitor] 80 mg Tablet
40 mg PO HS
aspirin 81 mg Tablet
81 mg PO DAILY
ezetimibe [Zetia] 10 mg Tablet
10 mg PO QPM
coQ10 (ubiquinol) 100 mg Capsule
100 mg PO DAILY
levetiracetam [Keppra] 500 mg Tablet
500 mg PO HS
Discontinued
metformin 1,000 mg tablet
1,000 mg PO QPM
carvedilol [Coreg] 25 mg Tablet
25 mg PO HS
carvedilol [Coreg] 12.5 mg Tablet
12.5 mg PO 1XD
Discharge Orders:
Discharge Patient (As Directed); Ordered 09/30/25
Ordered By: Renata Khan
Care Plan Goals
Care Plan Goals:
Problem: Readiness for enhanced knowledge related to diagnosis and treatment plan
Goal: Understand your diagnosis and treatment plan needs, including medications if applicable.
Instructions: Know your diagnosis, underlying causes and treatment plan options, including medications if applicable. Consult with your health care team to learn about your diagnosis and treatment plan, including medications if applicable.
Discharge Date and Time
Discharge Date/Time: 09/30/25 13:59
Print Language: TRISTANIAN
--- NOTE | 2025-09-30 09:08 | PN.DE.MGMTRT ---
Insulin Management
- -
09/30/2025: Diabetes Management Follow up
Patient admitted 09/19 with breathing problem -Acute on chronic HF and pneumonia. Diabetes Management consult 09/25.
PMH: CAD/IA with decreased EF 2008, seizure disorder, HLD, HTN, CVA and T2DM. On admission patient had L heart cath -severe triple vessel CAD. 09/23 R heart cath. Prior to admission was taking Lantus 24 units @ HS with Metformin 1000 mg BID. A1C on
admission 11.5%, Cr .9, eGFR > 60 today.
Patient is awake alert and oriented, out of bed in chair, able to discuss diabetes care. POD # 6 s/p CABG x 4.
States he has had diabetes ~ 30 years. Had insurance issues in the last year so obtaining medications and seeing providers was not possible.
In the past he has taken Lantus at hs with AC NovoLog and Jardiance and metformin. He states he has Jardiance at home. States in the past he has seen Dr. Martinez and has an appointment set up for 10/20.
09/30 Glucose range yesterday 86 to 165. Patient received Farxiga 10 mg daily with metformin 1000 mg BID with novolog 7 units in am dose decreased to 5 units AC for lunch, glucose 86 pre dinner so held. Received lantus 24 units @ HS. Fasting
glucose today 106. Will continue Farxiga 10mg (Jardiance at d/c), Metformin 1000 mg BID, Lantus 24 units @ HS, AC NovoLog 5 units AC and low corrective with meals. Reviewed with patient medication regimen for diabetes including Jardiance,
metformin and novolog and lantus. Patient able to repeat back when to take insulin as well as po meds.
Patient was seen by the Diabetes Nurse Educator for CGM- Gladis 3+ sensor.
Discussed with nurse. Will cont to follow.
Diabetes History
- -
Type of Diabetes: 2 requiring insulin
Pre-Admission Diabetes Regimen
09/30/25
04:43
Creatinine 1.0
Lab Results
Hemoglobin A1c Cancelled 09/19/25 07:55
Insulin Pump Settings
IP Diabetes Regimen
09/29/25 09/29/25 09/29/25
09:10 13:26 17:33
Glucose
POC Glucose 102 H 165 H 86
09/29/25 09/30/25
20:44 04:43
Glucose 106 H
POC Glucose 133 H
Meal type: Lunch
Meal type: Breakfast
Amount consumed: 100%
Amount consumed: 100%
Patient Education
--- NOTE | 2025-09-30 09:23 | PTCARENOTE ---
assumed care of pt from previous shift RN, sinus rhythm on tele, VSS. + peripheral pulses, +2 edema to lower extremities. Lungs diminished, pox 99% on RA. +bs, poor appetite, voids spontaneously. Surgical sites stable. pt denies pain. for possible
d/c later today.
[2025-09-30 09:42] LABS: Glucose - Point of Care 113 mg/dl (70-99)
[2025-09-30] MEDS: NOVOLOG FLEXPEN 5 UNITS SC (09:42)
[2025-09-30] MEDS: NOVOLOG FLEXPEN-LOW RESISTANCE SC (09:42)
[2025-09-30] MEDS: LIDOCAINE 4% PATCH TOPICAL (09:51)
[2025-09-30] MEDS: STERILE WATER FOR INJECTION IV (09:51)
[2025-09-30] MEDS: NSS IV (09:52)
[2025-09-30 09:59] VITALS: BP 111/58
[2025-09-30 10:09] VITALS: BP 108/56
--- NOTE | 2025-09-30 10:25 | PTCARENOTE ---
pt tolerated cardiac rehab, for 2 view CXR.
[2025-09-30 12:15] VITALS: BP 108/56; BP 111/58; PULSE 66
--- NOTE | 2025-09-30 13:57 | PTCARENOTE ---
Patient set up to shower, completed independently. PIV removed. Discharge instructions thoroughly reviewed w/patient and spouse, all questions answered. Patient and all belongings transported to waiting vehicle for d/c home w/spouse.
== END 2025-09-30 13:59 | disposition home or self-care (01) | DRG 233 ==
LOC: CVICU 08:49
PROVIDERS: Anesthesiology; Clinical Nurse Specialist Acute Care; Nurse Practitioner; Nurse Practitioner Gerontology; Physician Assistant Medical; Student in an Organized Health Care Education/Training Program; ADMITTING PHYSICIAN Internal Medicine; ATTENDING PHYSICIAN Thoracic Surgery (Cardiothoracic Vascular Surgery); CONSULT PHYSICIAN Student in an Organized Health Care Education/Training Program; CONSULT PHYSICIAN Thoracic Surgery (Cardiothoracic Vascular Surgery); EMERGENCY PHYSICIAN Emergency Medicine; FAMILY PHYSICIAN Nurse Practitioner Family; OTHER PHYSICIAN Internal Medicine Critical Care Medicine
PROC: 4A023N8 Measurement of Cardiac Sampling and Pressure, Bilateral, Percutaneous Approach (ICD-10-PCS; 2025-09-19)
PROC: B2111ZZ Fluoroscopy of Multiple Coronary Arteries using Low Osmolar Contrast (ICD-10-PCS; 2025-09-19)
PROC: 4A023N6 Measurement of Cardiac Sampling and Pressure, Right Heart, Percutaneous Approach (ICD-10-PCS; 2025-09-23)
PROC: 5A1221Z Performance of Cardiac Output, Continuous (ICD-10-PCS; 2025-09-24)
PROC: 06BP4ZZ Excision of Right Saphenous Vein, Percutaneous Endoscopic Approach (ICD-10-PCS; 2025-09-24)
PROC: 021209W Bypass Coronary Artery, Three Arteries from Aorta with Autologous Venous Tissue, Open Approach (ICD-10-PCS; 2025-09-24)
PROC: 5A09357 Assistance with Respiratory Ventilation, Less than 24 Consecutive Hours, Continuous Positive Airway Pressure (ICD-10-PCS; 2025-09-24)
PROC: 02C00ZZ Extirpation of Matter from Coronary Artery, One Artery, Open Approach (ICD-10-PCS; 2025-09-24)
PROC: 02100Z9 Bypass Coronary Artery, One Artery from Left Internal Mammary, Open Approach (ICD-10-PCS; 2025-09-24)
PROC: 30233N1 Transfusion of Nonautologous Red Blood Cells into Peripheral Vein, Percutaneous Approach (ICD-10-PCS; 2025-09-24)
PROC: 02L70CK Occlusion of Left Atrial Appendage with Extraluminal Device, Open Approach (ICD-10-PCS; 2025-09-24)
PROC: B24BZZ4 Ultrasonography of Heart with Aorta, Transesophageal (ICD-10-PCS; 2025-09-24)
DX: T82.855A Stenosis of coronary artery stent, initial encounter (principal); I21.4 Non-ST elevation (NSTEMI) myocardial infarction; I50.23 Acute on chronic systolic (congestive) heart failure; J18.9 Pneumonia, unspecified organism; R57.0 Cardiogenic shock; D62 Acute posthemorrhagic anemia; J98.11 Atelectasis; I30.9 Acute pericarditis, unspecified; E87.1 Hypo-osmolality and hyponatremia; R06.89 Other abnormalities of breathing; R09.02 Hypoxemia; D69.6 Thrombocytopenia, unspecified; E86.1 Hypovolemia; I95.81 Postprocedural hypotension; S05.02XA Injury of conjunctiva and corneal abrasion without foreign body, left eye, initial encounter; X58.XXXA Exposure to other specified factors, initial encounter; Y93.89 Activity, other specified; Y92.239 Unspecified place in hospital as the place of occurrence of the external cause; Y83.1 Surgical operation with implant of artificial internal device as the cause of abnormal reaction of the patient, or of later complication, without mention of misadventure at the time of the procedure; Y92.9 Unspecified place or not applicable; I25.10 Atherosclerotic heart disease of native coronary artery without angina pectoris; E11.65 Type 2 diabetes mellitus with hyperglycemia; I25.5 Ischemic cardiomyopathy; I48.91 Unspecified atrial fibrillation; J47.9 Bronchiectasis, uncomplicated; I11.0 Hypertensive heart disease with heart failure; I27.20 Pulmonary hypertension, unspecified; E78.00 Pure hypercholesterolemia, unspecified; I25.2 Old myocardial infarction; Z79.4 Long term (current) use of insulin; Z79.82 Long term (current) use of aspirin; Z79.84 Long term (current) use of oral hypoglycemic drugs; Z82.49 Family history of ischemic heart disease and other diseases of the circulatory system; Z86.73 Personal history of transient ischemic attack (TIA), and cerebral infarction without residual deficits; Z79.899 Other long term (current) drug therapy; Z11.52 Encounter for screening for COVID-19
CPT/HCPCS: 71045; 71046; 71250; 71275; 74176; 80048; 80053; 80061; 81003; 81015; 82248; 82330; 82565; 82607; 82728; 82746; 82805; 82810; 82947; 82962; 83036; 83540; 83550; 83605; 83615; 83735; 83880; 84132; 84145; 84302; 84443; 84484; 84520; 85014; 85018; 85025; 85027; 85045; 85049; 85379; 85610; 85730; 86850; 86900; 86901; 86920; 86922; 87040; 87070; 87205; 87449; 87502; 87811; 87899; 88304; 93005; 93306; 93308; 93312; 93320; 93321; 93325; 93451; 93460; 93880; 93923; 93931; 93970; 94002; 94640; 94660; 96365; 96367; 96375; 99152; 99153; 99291; C1769; C1894; J1250; J2916; P9016; P9045; P9047; Q9950; Q9967